=== PATIENT | male | born 1955 | race Caucasian/White ===

== ENCOUNTER → 2016-06-17 | Outpatient (CLI) | payer BC ==
[~2016-06-17] MED LIST: AZIT250T PO; CEPH-571 PO; CYAN1CAP3 PO; ETAN50IN2 INJ; FLV1 PO; FURO-85 PO; GABA-113 PO; HCTZ/LOSARTAN PO; METF500T PO; METH10TA32 PO; MOME220A INH; NYSS5 PO; PRED10TA PO; PRED20TA PO; PRLSR20 PO
[2016-06-17 14:03] LABS: CHOLESTEROL/HDL RATIO 4.1
== END | disposition home or self-care (01) ==
LOC: C.LAB1850 11:57
PROVIDERS: ATTEND Internal Medicine Cardiovascular Disease
DX: I10 Essential (primary) hypertension (principal)

== ENCOUNTER → 2016-07-10 | Outpatient (CLI) | payer BC ==
[~2016-07-10] MED LIST changes: +PERFLUTREN LIPID MICROSPHERE (DEFINITY) IV ONE
[2016-07-10 15:04] LABS: THYROID STIMULATING HORMONE 0.896 uIu/ml (0.300-4.500)
--- NOTE | 2016-07-10 19:00 | ECHOCARDIOGRAM REPORT ---
*NOTICE TO RECEIVING LIBERTARIAN AGENCY This information is strictly Confidential and protected under [place] law. [place] law prohibits you from making any further disclosure of this information unless further disclosure is expressly permitted by the written consent of the person to whom it pertains or is authorized by law. A general authorization for the release of medical or other information is not sufficient for this purpose. Hospital accepts no responsibility if the information is made available to any other person, INCLUDING THE PATIENT. Interpretation Summary * Name: DAVONTE MARTIN Study Date: 07/10/2016 02:18 PM BP: 170/90 mmHg * Patient Location: [facility], [place], [facility] HR: 96 * : 1955 (M/d/yyy) Gender: Male Height: 71 in * Age: 61 yrs Ethnicity: [place] Weight: 322 lb * Ordering Physician: Kwesi Glaser * Referring Physician: Kwesi Glaser * Performed By: Christine Maynard * * Reason For Study: HTN * BSA: 2.6 m2 * -- Conclusions -- * 1. Normal left ventricular size and systolic function. Estimated EF 60-65%. No definite regional wall motion abnormalities. Regional wall motion abnormalities cannot be excluded due to limited visualization. No significant left ventricular hypertrophy. Type 1 diastolic dysfunction. * 2. No significant valvular abnormalities visualized, however valves were not well seen. * 3. Technically difficult study, enhanced with IV Definity. * 4. No prior study available for comparison. Procedure Details * A complete two-dimensional transthoracic echocardiogram was performed (2D, M-mode, Doppler and color flow Doppler). * The study was technically limited. * Limited views were obtained. * The study was technically difficult. * There were technical limitations due to patient's poor positioning and body habitus. * A contrast injection of Definity was performed to improve assessment of LV function. * Contrast was injected into an intravenous site in the right arm. * One vial of Definity ultrasound contrast was diluted in normal saline to a total volume of 10 ml. A total of '3' ml of solution was administered during imaging. * Lot # [id number] of Definity utilized for procedure. * Expiration date 07/12. * The attending nurse who injected the contrast agent was richa carrington RN. Left Ventricle * Normal left ventricular size and systolic function. Estimated EF 60-65%. No definite regional wall motion abnormalities. No significant left ventricular hypertrophy. Type 1 diastolic dysfunction. * Regional wall motion abnormalities cannot be excluded due to limited visualization. Right Ventricle * The right ventricle is not well visualized. * The right ventricle is grossly normal size. * The right ventricular systolic function is normal as assessed by tricuspid annular plane systolic excursion (TAPSE) (normal >1.5 cm). * The right ventricular systolic function is normal. Atria * The left atrial size is normal. * Right atrium not well visualized. * Inter atrial septum not well visualized. Mitral Valve * The mitral valve is not well visualized. * There is no mitral valve stenosis. * Significant mitral regurgitation is absent. Tricuspid Valve * The tricuspid valve is not well visualized. Aortic Valve * The aortic valve is not well visualized. * No hemodynamically significant valvular aortic stenosis. * There is no significant aortic regurgitation. Pulmonic Valve * The pulmonic valve is not well visualized. Great Vessels * Aortic root not well visualized but appears grossly normal in size. Pericardium/Pleural * There is no pericardial effusion. Great Vessels * IVC not well visualized. MMode 2D Measurements and Calculations IVSd 0.89 cm LVIDd 4.3 cm LVPWd 0.79 cm IVS/LVPW 1.1 EDV(Teich) 84.4 ml EDV(cubed) 81.1 ml LV mass(C)d 113.8 grams LV mass(C)dI 44.1 grams/m\S\2 Ao root diam 3.8 cm Ao root area 11.5 cm\S\2 ACS 0.96 cm asc Aorta Diam 3.5 cm LVOT diam 2.0 cm LVOT area 3.0 cm\S\2 LVLd ap2 8.1 cm LVLs ap2 6.3 cm Doppler Measurements and Calculations MV E max sherry 73.5 cm/sec MV A max sherry 94.8 cm/sec MV E/A 0.78 MV dec time 0.24 sec Ao V2 max 110.1 cm/sec Ao max PG 4.9 mmHg Ao max PG (full) 1.1 mmHg LOLITA(V,A) 2.7 cm\S\2 LOLITA(V,D) 2.7 cm\S\2 LV V1 max PG 3.8 mmHg LV V1 max 97.2 cm/sec PA V2 max 81.4 cm/sec PA max PG 2.7 mmHg
== END | disposition home or self-care (01) ==
LOC: C.CPL 13:30
PROVIDERS: ATTEND Internal Medicine Cardiovascular Disease
DX: I10 Essential (primary) hypertension (principal)

== ENCOUNTER → 2016-07-21 | Outpatient (CLI) | payer BC ==
[~2016-07-21] MED LIST changes: -PERFLUTREN LIPID MICROSPHERE (DEFINITY) IV ONE
--- NOTE | 2016-07-21 08:48 | DIAGNOSTIC IMAGING REPORT ---
(BARIUM SWALLOW) ESOPHAGUS CLINICAL HISTORY: E04.2 Multinodular iobcylE76.10 [id number] COMPARISON STUDY: None FLUOROSCOPY TIME: 1.7 minutes. FINDINGS: Mild esophageal irritability. Mild gastroesophageal reflux. Swallowing function is normal. Trace amount of penetration with no evidence for fidel aspiration. IMPRESSION: 1. Trace penetration . 2. No evidence for fidel aspiration. 3. Mild esophageal irritability. 4. Mild gastroesophageal reflux. Electronically signed by: Elmer Whitfield M.D. 07/21/2016 8:47 AM Dictated Date/Time: 07/21/2016 8:42 AM
== END | disposition home or self-care (01) ==
LOC: C.RAD 08:08
PROVIDERS: ATTEND Internal Medicine Endocrinology, Diabetes & Metabolism
DX: E04.2 Nontoxic multinodular goiter (principal); R13.10 Dysphagia, unspecified

== ENCOUNTER 2016-08-28 08:21 | Inpatient (IN) | payer BC ==
[2016-08-28] VITALS (9 sets, daily range): BP systolic 100–144; BP diastolic 68–82; PULSE 79–118; TEMP 36.6–37.1; O2SAT 92–99; Ht 180.3 cm; Wt 142.2 kg
[~2016-08-28] VITALS: Ht 180.3 cm; Wt 142.2 kg
[2016-08-28] MEDS ORDERED: SODIUM CHLORIDE 0.9% 1000ML 1,000 ML IV STA (08:42)
[2016-08-28] MEDS ORDERED: SODIUM CHLORIDE 0.9% 1000ML 1,000 ML IV ONE (08:42)
[2016-08-28 09:09] LABS: COMPLETE YES; HEMATOCRIT 33.9 % (42-52); IG% 0.6 %; LYMPH % 4.2 %; LYMPH ABS # 0.15 K/uL (1.2-3.4); MEAN CELL VOLUME 93.9 fL (80-100); MEAN CORPUSCULAR HEMOGLOBIN 31.6 pg (25-34); MEAN CORPUSCULAR HGB CONC 33.6 g/dl (32-36); MEAN PLATELET VOLUME 10.1 fL (7.4-10.4); MONO % 0.8 %; NEUT % 94.4 %; PLATELET COUNT 227 K/uL (130-400); RED BLOOD COUNT 3.61 M/uL (4.7-6.1); WHITE BLOOD COUNT 3.61 K/uL (4.8-10.8)
[2016-08-28] MEDS ORDERED: METH10TA32 PO ×2 (09:12→09:14)
[2016-08-28] MEDS ORDERED: FURO-85 PO (09:12)
--- NOTE | 2016-08-28 09:13 | DIAGNOSTIC IMAGING REPORT ---
CHEST ONE VIEW PORTABLE CLINICAL HISTORY: CHEST PAIN dyspnea COMPARISON STUDY: 04/25/2016 FINDINGS: Mild stable cardia megaly. Lungs are clear. Diaphragms smooth. Costophrenic angles are sharp. IMPRESSION: Mild stable cardiomegaly. Electronically signed by: Elmer Whitfield M.D. 08/28/2016 9:11 AM Dictated Date/Time: 08/28/2016 9:10 AM
[2016-08-28] MEDS ORDERED: ETAN50IN2 INJ (09:18)
[2016-08-28] MEDS ORDERED: GABA-113 PO (09:18)
[2016-08-28] MEDS ORDERED: PRED20TA PO (09:18)
[2016-08-28] MEDS ORDERED: ALBUT/IPRATROP 3MG/0.5MG NEB 3 ML VIAL INH STA (09:24)
[2016-08-28] MEDS ORDERED: HCTZ/LOSARTAN PO (09:29)
[2016-08-28] MEDS ORDERED: MOME220A INH (09:29)
[2016-08-28] MEDS ORDERED: PRLSR20 PO (09:29)
[2016-08-28 09:30] LABS: ALT/SGPT 87 U/L (12-78); BLOOD UREA NITROGEN 67 mg/dl (7-18); BUN/CREATININE RATIO 28.1 (10-20); CALCIUM 8.7 mg/dl (8.5-10.1); CARBON DIOXIDE 27 mmol/L (21-32); CHLORIDE 103 mmol/L (98-107); GLUCOSE 166 mg/dl (70-99); POTASSIUM 3.8 mmol/L (3.5-5.1); SODIUM 141 mmol/L (136-145)
[2016-08-28 09:33] LABS: ALKALINE PHOSPHATASE 116 U/L (45-117); AST/SGOT 34 U/L (15-37)
[2016-08-28] MEDS ORDERED: ALBUT/IPRATROP 3MG/0.5MG NEB 3 ML VIAL INH PRN (10:30)
[2016-08-28] MEDS ORDERED: ONDANSETRON INJ 2 MG/ML 2 ML VIAL IV PRN (10:30)
[2016-08-28] MEDS ORDERED: PNEUMOCOCCAL POLYSACCHARIDES 25 MCG/0.5 ML VIAL/SYR IM. ONE (10:30)
[2016-08-28] MEDS ORDERED: ACETAMINOPHEN 325 MG TAB PO PRN (10:30)
[2016-08-28] MEDS ORDERED: MoRPHine SULFATE 2 MG/ML CARP IV PRN (10:30)
[2016-08-28] MEDS ORDERED: POLYETHYLENE (MIRALAX) 17 GM PACK PO PRN (10:45)
[2016-08-28] MEDS ORDERED: PIPERACILL/TAZOBAC CONSULT ACTIVE PRN (11:00)
--- NOTE | 2016-08-28 11:16 | HISTORY & PHYSICAL EXAMINATION ---
DATE OF ADMISSION: 08/28/2016 CHIEF COMPLAINT: Shortness of breath. REASON FOR ADMISSION: 1. Acute exacerbation of chronic bronchitis. 2. Acute renal failure. 3. Bright red blood per rectum. 4. Bilateral foot cellulitis. HISTORY OF PRESENT ILLNESS: Mr. Solorzano is a 61-year-old male who suffers from rheumatoid arthritis and is on chronic prednisone therapy. 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 Tejada. He states over the last 4 days he developed progressive shortness of breath; however, this has been accompanied by cough now changing with yellow sputum from his typical white and also some surrounding erythema to large blisters which formed on his feet after walking in ill-fitting shoes over the weekend. The patient states that he was doing fairly well prior to this weekend. He actually went to visit some family in [place] but he was able to ambulate on an outdoor event without much shortness of breath. However, upon returning home, he noticed that he developed blisters from walking around on his feet with progressive erythema and he developed a yellow productive cough with increasing shortness of breath. To this end, the patient took some p.r.n., Lasix, which he had at home and doubled his usual prednisone therapy from 20 to 40. Despite these efforts and local wound care his legs progressively worsened and become erythematous, his breathing progressively worsened and he presented to the Emergency Department where he was found to be hypotensive with lactic acid of 2. He was also tachycardic. He was leukopenic, which likely makes him placed in the SIRS criteria. He was volume resuscitated in the ER. Blood cultures were obtained and he was given a DuoNeb. He is agreeable to admission. PAST MEDICAL HISTORY: COPD, hypertension, rheumatoid arthritis, he had been on Enbrel which was discontinued in March and once his breathing improves, he was going to begin Humira, morbid obesity, shoulder arthroscopy, most recently had echocardiogram in June which shows EF to be 60%, no significant regional wall abnormalities or valvular abnormalities. MEDICATIONS: Lasix 10 mg as needed, Neurontin 300 b.i.d., methotrexate 7 tablets on Mondays which he believes are 2.5 mg tablets, Asmanex Twisthaler 220 one inhalation b.i.d., prednisone 20 mg daily, Prilosec 40 a day and losartan 100/12.5 daily. SOCIAL HISTORY: Quit smoking in 2001. 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 He is accompanied by his . FAMILY HISTORY: Positive for heart disease, hypertension and skin cancer. REVIEW OF SYSTEMS: Ten systems were reviewed and are negative. The bright red blood per rectum has been accompanied with diarrhea. He says he does have some hemorrhoids or polyps and this occasionally happens to him. He has not really noted any melena per se. Otherwise, 10 systems were reviewed and are negative. PHYSICAL EXAMINATION: GENERAL: He is a pleasant gentleman, a little gruff. VITAL SIGNS: Temperature 36.9, pulse 100, respirations 20, BP is low at 78/44 and O2 sats 94. HEAD, EYES, EARS, NOSE, AND THROAT: PERRL, EOMI. Oropharynx is erythematous with some maybe scant areas which suggests thrush. NECK: Without lymphadenopathy, JVD. He states he was recently told he had a goiter. I cannot feel it currently but this is by his history. HEART: Regular. LUNGS: Clear with poor expiratory air movement. He has just recently had a DuoNeb; however. ABDOMEN: Protuberant, normoactive bowel sounds, soft. His groin shows marked intertrigo. EXTREMITIES: His distal extremities have 1+ edema. There are large unroofed blisters on the dorsum of both feet with surrounding erythema to the dorsum of his foot up to the anterior montesinos. He also has multiple skin areas of abrasions and small scabs on his hands, knees, and feet. NEUROLOGICALLY: Awake, alert and appropriate. Cranial nerves II-XII are intact. Equal symmetrical strength and sensation. LABORATORY DATA: White count 3.6, H\T\H 11 and 33, platelet count 227, BUN and creatinine 67/2.4, lactic acid 2.3, glucose elevated at 166. I personally reviewed his chest x-ray which shows changes of COPD, but no pneumonia, I personally reviewed EKGs which shows normal sinus rhythm. ASSESSMENT: A 61-year-old male here with likely SIRS related to acute bronchitis, lower extremity cellulitis with large unroofed blisters and rectal bleeding. PLAN: For the cellulitis and bronchitis we will employ Zosyn therapy. The patient does not have a lot of health care exposure, although he is immunosuppressed. MRSA coverage is not added at this point in time unless he progressively worsens then we will add vancomycin. We will do a nasal MRSA swab and if it is positive, we may consider broadening our MRSA coverage. Regarding his SIRS he will volume resuscitated in the ER and will receive an additional 2 liters for the first 24 hours. Regarding his acute exacerbation of chronic bronchitis, he will be given Solu-Medrol, albuterol nebulizers and continue his Asmanex. Dr. Tejada is his usual post acute care registered nurse and may be employed for a consult if need be. Regarding his bright red blood per rectum this sounds hemorrhoid. We will increase his proton pump inhibitor to IV and b.i.d. Noticing his glucoses being elevated on admission and his morbid obesity places him at risk for type 2 diabetes, a hemoglobin A1c has added to tomorrow's morning labs. DVT prevention tentatively is with heparin which can be stopped emergently if we need to be. We will repeat hemoglobin and lactic acid at 1500 hours to make sure the hemoglobin is not worsening and the lactic acid is improving.
[2016-08-28] MEDS: SODIUM CHLORIDE 0.9% 1000ML 1,000 ML IV SCH ×2 (13:11→20:26)
[2016-08-28] MEDS: NYSTATIN SUSP 500,000 U/5 ML UDC PO SCH ×3 (13:11→20:27)
[2016-08-28] MEDS: PANTOprazole INJ 40 MG in SYRINGE 0 ML IV SCH ×2 (13:11→20:27)
[2016-08-28] MEDS: METHYLPREDNISOLONE IV 40 MG in SYRINGE 0 ML IV SCH (13:11)
[2016-08-28 13:20] LABS: PARTIAL THROMBOPLASTIN RATIO 0.8; PROTHROMBIN TIME (PATIENT) 10.8 SECONDS (9.0-12.0)
[2016-08-28] MEDS ORDERED: PIPERACILL/TAZOBAC IV 4.5 GM in DEXTROSE 5% 100ML IV ONE (13:30)
--- NOTE | 2016-08-28 15:57 | EMERGENCY ROOM VISIT NOTE ---
History Report prepared by Marry: Melinda eY Under the Supervision of: Dr. Trace Garcia M.D. First contact with patient: 08:35 Chief Complaint: SHORTNESS OF BREATH Stated Complaint: SOB,BLISTERS/CANT WALK,BLOODY STOOLS History of Present Illness The patient is a 61 year old male who presents to the Emergency Room with complaints of persistent shortness of breath starting 4 days ago. He has been in the ED for SOB previously and he is following with a manager interface. He reports that last weekend he was doing well and was walking long distances. He reports that his shoes were ill fitting. His reports that he was eating unhealthily all weekend. When he returned home he found that he had blisters all over his feet and he was short of breath. Also for the last 3-4 days he has had bright red stool. Starting last night at 0300 he stopped having bloody stools, but started to experience diarrhea. He had 5 bowel movements last night. He denies any dizziness, lightheadedness, abdominal pain, rectal pain or chest pain. He has been on antibiotics and prednisone recently. He has recently had an echo which was normal. Source of History: patient, spouse/significant other Onset: 4 days ago Position: other (global) Quality: other (SOB) Timing: other (persistent) Associated Symptoms: + SOB, + diarrhea, + hematochezia, No abdominal pain, No chest pain Note: Pt reports blisters on feet. Pt denies rectal pain, dizziness, lightheadedness. Review of Systems See HPI for pertinent positives & negatives. A total of 10 systems reviewed and were otherwise negative. Past Medical & Surgical Medical Problems: (1) Acute exacerbation of chronic bronchitis (2) Atrial fibrillation (3) Reactive airway disease (4) SIRS (systemic inflammatory response syndrome) Old medical records were reviewed. Nurse's notes were reviewed and I agree with. Family History FH: heart disease FHx: cancer Hypertension Social History Smoking Status: Former Smoker Alcohol Use: none Marital Status: Housing Status: lives with family Occupation Status: employed Current/Historical Medications Scheduled Etanercept (Enbrel), 1 DOSE INJ Mo Furosemide (Lasix), 10 MG PO UD Gabapentin (Neurontin), 300 MG PO BID Methotrexate (Trexall), 10 MG PO WK Mometasone Furoate (Inhalation (Asmanex Twisthaler 120 Me), 1 INHA INH BID Omeprazole (Prilosec), 20 MG PO DAILY Prednisone (Prednisone), 1 TAB PO DAILY [Hctz/Losartan], 1 TAB PO DAILY Allergies Coded Allergies: No Known Allergies (Verified , 08/28/16) Physical Exam Vital Signs Date Time Temp Pulse Resp B/P Pulse Ox O2 Delivery O2 Flow Rate FiO2 08/28/16 10:00 100 20 102/61 98 Room Air 08/28/16 10:00 95 Room Air 08/28/16 09:05 110 08/28/16 09:01 94 Room Air 08/28/16 08:57 94 08/28/16 08:56 105 21 73/47 93 Room Air 08/28/16 08:28 36.9 98 20 78/44 95 Room Air Physical Exam General: Chronically ill-appearing middle aged male. Well developed well nourished in no acute distress, breathing comfortably on room air. Normal speech HEENT: Normal cephalic atraumatic. Pupils are equal round and reactive to light. Extraocular movements are intact. Oropharynx is pink with moist mucous membranes. No swelling of the mouth lips or tongue. Neck: Supple with a midline trachea. No meningeal signs or stiffness, no JVD or bruits. No Stridor. Chest: Clear to auscultation bilaterally. No wheezes or rhonchi. No increased work of breathing. Heart: regular rate and rhythm. Abdomen: Soft nontender, nondistended without rebound guarding or rigidity. Extremities: No cyanosis or clubbing. No calf tenderness or assymetry. 1+ lower extremity edema, blistering and sloughing of skin on feet bilaterally. Spine/Back. Non tender to palpation. No CVA tenderness Skin: Good turgor without rashes. Neurologic exam: Cranial nerves two through 12 are intact. Motor and sensation are intact and symmetrical throughout. Medical Decision & Procedures ER Provider Diagnostic Interpretation: X-ray results as stated below per interpretation by me and the radiologist: CHEST ONE VIEW PORTABLE CLINICAL HISTORY: CHEST PAIN dyspnea COMPARISON STUDY: 04/25/2016 FINDINGS: Mild stable cardia megaly. Lungs are clear. Diaphragms smooth. Costophrenic angles are sharp. IMPRESSION: Mild stable cardiomegaly. Electronically signed by: Elmer Whitfield M.D. 08/28/2016 9:11 AM Dictated Date/Time: 08/28/2016 9:10 AM Laboratory Results 08/28/16 08:51 Red Blood Count 3.61, Mean Corpuscular Volume 93.9, Mean Corpuscular Hemoglobin 31.6, Mean Corpuscular Hemoglobin Concent 33.6, Mean Platelet Volume 10.1, Neutrophils (%) (Auto) 94.4, Lymphocytes (%) (Auto) 4.2, Monocytes (%) (Auto) 0.8, Eosinophils (%) (Auto) 0.0, Basophils (%) (Auto) 0.0, Neutrophils # (Auto) 3.41, Lymphocytes # (Auto) 0.15, Monocytes # (Auto) 0.03, Eosinophils # (Auto) 0.00, Basophils # (Auto) 0.00 08/28/16 08:51 Test 08/28/16 08:51 08/28/16 09:37 White Blood Count 3.61 K/uL (4.8-10.8) Red Blood Count 3.61 M/uL (4.7-6.1) Hemoglobin 11.4 g/dL (14.0-18.0) Hematocrit 33.9 % (42-52) Mean Corpuscular Volume 93.9 fL (80-100) Mean Corpuscular Hemoglobin 31.6 pg (25-34) Mean Corpuscular Hemoglobin Concent 33.6 g/dl (32-36) Platelet Count 227 K/uL (130-400) Mean Platelet Volume 10.1 fL (7.4-10.4) Neutrophils (%) (Auto) 94.4 % Lymphocytes (%) (Auto) 4.2 % Monocytes (%) (Auto) 0.8 % Eosinophils (%) (Auto) 0.0 % Basophils (%) (Auto) 0.0 % Neutrophils # (Auto) 3.41 K/uL (1.4-6.5) Lymphocytes # (Auto) 0.15 K/uL (1.2-3.4) Monocytes # (Auto) 0.03 K/uL (0.11-0.59) Eosinophils # (Auto) 0.00 K/uL (0-0.5) Basophils # (Auto) 0.00 K/uL (0-0.2) RDW Standard Deviation 48.7 fL (36.4-46.3) RDW Coefficient of Variation 14.4 % (11.5-14.5) Immature Granulocyte % (Auto) 0.6 % Immature Granulocyte # (Auto) 0.02 K/uL (0.00-0.02) Prothrombin Time 10.8 SECONDS (9.0-12.0) Prothromb Time International Ratio 1.0 (0.9-1.1) Activated Partial Thromboplast Time 20.5 SECONDS (21.0-31.0) Partial Thromboplastin Ratio 0.8 Anion Gap 11.0 mmol/L (3-11) Estimated GFR () 32.1 Estimated GFR (Non- 27.7 BUN/Creatinine Ratio 28.1 (10-20) Calcium Level 8.7 mg/dl (8.5-10.1) Total Bilirubin 0.8 mg/dl (0.2-1) Direct Bilirubin 0.2 mg/dl (0-0.2) Aspartate Amino Transf (AST/SGOT) 34 U/L (15-37) Alanine Aminotransferase (ALT/SGPT) 87 U/L (12-78) Alkaline Phosphatase 116 U/L (45-117) Troponin I 1.040 ng/ml (0-0.045) Pro-B-Type Natriuretic Peptide 653 pg/ml (0-900) Total Protein 6.4 gm/dl (6.4-8.2) Albumin 3.1 gm/dl (3.4-5.0) Lipase 143 U/L (73-393) Bedside Lactic Acid Venous 2.32 mmol/L (0.90-1.70) Date/Time Source Procedure Growth Status 08/28/16 00:00 Nasal MRSA DNA Surveillance Screen - Final Specimen Negative for MRSA by DNA Probe Complete Laboratory studies as stated above per my review. Medications Administered Medications (Trade) Dose Ordered Sig/Janessa Route Start Time Stop Time Status Last Admin Dose Admin Sodium Chloride (Nss 1000ml) 1,000 ml @ 999 mls/hr Q1H1M STAT IV 08/28/16 08:42 08/28/16 09:42 DC 08/28/16 09:49 999 MLS/HR Albuterol/ Ipratropium 3 ml 3 ml NOW STAT INH 08/28/16 09:24 08/28/16 09:25 DC 08/28/16 09:49 3 ML Sodium Chloride (Nss 1000ml) 1,000 ml @ 100 mls/hr Q10H IV 08/28/16 10:30 08/29/16 06:29 08/28/16 13:11 100 MLS/HR ECG Indication: SOB/dyspnea Rate (beats per minute): 109 Rhythm: sinus bradycardia Findings: no acute ischemic change, no ectopy Comparison ECG Date: Change: no significant change ED Course 0835: Past medical records reviewed. The patient was evaluated in room A10, and a complete history and physical examination were performed. 0842: NSS 1000 ml @ 150 mls/hr IV, NSS 1000 ml @ 999 mls/hr IV. 0924: Duoneb 3 ml INH. 0947: Upon reevaluation, the patient is resting comfortably. I discussed the results and treatment plan with the patient. He verbalized agreement of the treatment plan. The patient will be evaluated for further management. 0949: I discussed the patient's case with Dr. Kaiser, [facility] [place] - internal medicine. The patient will be evaluated for further management. 1032: I reevaluated the patient. He feels much better. He has been seen by Dr. Kaiser. Medical Decision Differential diagnoses: reactive airway disease, infection, pneumonia, cellulitis, sepsis, anemia. This patient comes in as described above. He has several complaints. He was noted to be hypotensive in triage with a blood pressure in the 70 systolic. I went and saw her immediately on recheck it was in 90s. He does have some blistering and skin sloughing of his feet which I think is most likely mechanical from walking around. He also also tells me has not been drinking much. He denies any chest pain. He has had some shortness of breath but gets better with his inhalers. He does not appear to be respiratory distress acutely. IV access established EKG and chest x-ray were obtained as well as multiple blood testing. Chest x-ray was clear and does not suggest heart failure, pneumonia, or pneumothorax. EKG does not suggest acute coronary syndrome or arrhythmia. His troponin however was elevated at greater than 1. His BUN and creatinine were also significantly elevated at 67 and 2.4. I think this is most likely prerenal. He is also anemic and some this could be related to GI bleed. He's been typed and screened. He was treated with IV fluid bolus and his pressure cameup. Blood cultures have been obtained as well at this point he has known sinus suggest infection or sepsis of the that would still be in the differential. Dr. Acuna was consulted and saw the ER will admit him for further inpatient treatment and evaluation. Consults Time Called: [phone] Consulting Physician: Dr. Kaiser, [facility] [place] - internal medicine Returned Call: [phone] I discussed the patient's case with him. The patient will be evaluated for further management. Impression Primary Impression: Hypotension Additional Impressions: SOB (shortness of breath) Dehydration GI bleed Lower extremity edema Critical Care Because of the patient's hypotension and need for frequent reassessment and significant evaluation and other medical issues, I have personally spent greater than 30 minutes of critical care time in the direct management of this patient. This includes bedside care, interpretation of diagnostic studies, and testing, discussion with consultants, patient, and family members, and other required patient management activities. This 30 minutes is in excess of all separately billable procedures. Scribe Attestation The scribe's documentation has been prepared under my direction and personally reviewed by me in its entirety. I confirm that the note above accurately reflects all work, treatment, procedures, and medical decision making performed by me. Departure Information Dispostion Being Evaluated By Hospitalist Referrals No Doctor, Assigned (PCP) Patient Instructions My [facility] Problem Qualifiers
[2016-08-28] MEDS: ALBUT/IPRATROP 3MG/0.5MG NEB 3 ML VIAL INH SCH ×2 (16:22→19:22)
[2016-08-28 16:39] LABS: HEMATOCRIT 30.9 % (42-52)
[2016-08-28] MEDS: HEPARIN SOD 5000 UNIT/0.5 ML CARP SQ SCH (17:26)
[2016-08-28] MEDS: PIPERACILL/TAZOBAC IV 4.5 GM in DEXTROSE 5% 100ML 100 ML IV SCH (20:26)
[2016-08-28] MEDS: NYSTATIN POWDER 15GM BTL EXT SCH (20:26)
[2016-08-28] MEDS: GABAPENTIN 300 MG CAP PO SCH (20:27)
[2016-08-28] MEDS: MOMETASONE FUROATE 14 PUFF/1 INHALER INH SCH (20:28)
[2016-08-29] VITALS (10 sets, daily range): BP systolic 102–126; BP diastolic 64–84; PULSE 63–114; TEMP 36.6–36.9; O2SAT 69–98
[2016-08-29] MEDS: METHYLPREDNISOLONE IV 40 MG in SYRINGE 0 ML IV SCH ×2 (01:19→12:33)
[2016-08-29] MEDS: PIPERACILL/TAZOBAC IV 4.5 GM in DEXTROSE 5% 100ML 100 ML IV SCH ×3 (03:48→20:13)
[2016-08-29] MEDS: HEPARIN SOD 5000 UNIT/0.5 ML CARP SQ SCH ×2 (06:15→17:28)
[2016-08-29 07:11] LABS: HEMATOCRIT 29.4 % (42-52); MEAN CELL VOLUME 94.5 fL (80-100); MEAN CORPUSCULAR HEMOGLOBIN 30.5 pg (25-34); MEAN CORPUSCULAR HGB CONC 32.3 g/dl (32-36); MEAN PLATELET VOLUME 9.4 fL (7.4-10.4); PLATELET COUNT 143 K/uL (130-400); RED BLOOD COUNT 3.11 M/uL (4.7-6.1); WHITE BLOOD COUNT 2.68 K/uL (4.8-10.8)
[2016-08-29 07:47] LABS: BUN/CREATININE RATIO 27.8 (10-20); CALCIUM 8.5 mg/dl (8.5-10.1); CREATININE 1.9 mg/dl (0.60-1.40); POTASSIUM 4.7 mmol/L (3.5-5.1)
[2016-08-29] MEDS: ALBUT/IPRATROP 3MG/0.5MG NEB 3 ML VIAL INH SCH ×4 (07:58→19:16)
--- NOTE | 2016-08-29 08:00 | Hospitalist Progress Note ---
Hospitalist Progress Note Date of Service Aug 29, 2016. Subjective Pt evaluation today including: conversation w/ patient, physical exam, chart review Improved SOB. No CP. Eyes: No diplopia, No discharge, No eye pain, No problem reported, No redness, No see HPI, No worsening of vision ENT: No dental problems, No hearing loss, No nasal symptoms, No problem reported, No see HPI, No sore throat, No tinnitus, No trouble swallowing, No unusual epistaxis Respiratory: + cough, + dyspnea on exertion Cardiovascular: + edema Abdomen: No GI bleeding, No constipation, No diarrhea, No nausea, No pain, No problem reported, No see HPI, No vomiting Musculoskeletal: No calf pain, No joint pain, No muscle pain, No problem reported, No see HPI, No swelling Medications Medications (Trade) Dose Ordered Sig/Janessa Route Start Time Stop Time Status Last Admin Dose Admin Sodium Chloride (Nss 1000ml) 1,000 ml @ 999 mls/hr Q1H1M STAT IV 08/28/16 08:42 08/28/16 09:42 DC 08/28/16 09:49 999 MLS/HR Albuterol/ Ipratropium (Duoneb) 3 ml NOW STAT INH 08/28/16 09:24 08/28/16 09:25 DC 08/28/16 09:49 3 ML Gabapentin (Neurontin Cap) 300 mg BID PO 08/28/16 21:00 09/27/16 20:59 08/28/16 20:27 300 MG Mometasone Furoate (Asmanex 220MCG Inh) 1 puff BID INH 08/28/16 21:00 09/27/16 20:59 08/28/16 20:28 1 PUFF Heparin Sodium (Porcine) 5000 unit 5,000 unit Q12@0600,1800 SQ 08/28/16 18:00 09/27/16 17:59 08/29/16 06:15 5,000 UNIT Piperacillin Sod/ Tazobactam Sod 4.5 gm/Dextrose 120 ml @ 28.75 mls/ hr Q8@0400,1200,2000 IV 08/28/16 20:00 09/07/16 13:59 08/29/16 03:48 28.75 MLS/HR Methylprednisolone Sodium Succinate/ Syringe (Solu-Medrol IV/ Syringe) 0.64 ml @ 1.5 mls/min Q12H IV 08/28/16 13:00 09/27/16 10:29 08/29/16 01:19 1.5 MLS/MIN Nystatin 1 appln 1 appln BID EXT 08/28/16 21:00 09/27/16 20:59 08/28/16 20:26 1 APPLN Pantoprazole Sodium/Syringe (Protonix Inj/ Syringe) 10 ml @ 5 mls/min DAILY@ IV 08/28/16 13:00 09/27/16 10:29 08/28/16 20:27 5 MLS/MIN Albuterol/ Ipratropium 3 ml 3 ml QIDR INH 08/28/16 12:00 09/27/16 11:59 08/28/16 19:22 3 ML Sodium Chloride (Nss 1000ml) 1,000 ml @ 100 mls/hr Q10H IV 08/28/16 10:30 08/29/16 06:29 DC 08/28/16 20:26 100 MLS/HR Nystatin 5 ml 5 ml QID PO 08/28/16 13:00 09/07/16 12:59 08/28/16 20:27 5 ML Piperacillin Sod/ Tazobactam Sod/ Dextrose (Zosyn Iv/D5 100ml) 120 ml @ 200 mls/hr NOW ONCE IV 08/28/16 13:30 08/28/16 14:05 DC 08/28/16 14:15 200 MLS/HR Objective Vital Signs Date Time Temp Pulse Resp B/P Pulse Ox O2 Delivery O2 Flow Rate FiO2 08/29/16 07:23 36.9 97 24 126/84 91 Room Air 08/29/16 04:00 Mask 5.0 08/29/16 03:43 36.8 100 20 115/79 95 Mask 5.0 08/29/16 00:00 Mask 5.0 08/28/16 23:59 37.1 118 20 100/68 99 Mask 5.0 08/28/16 20:01 99 Mask 5.0 08/28/16 19:28 37.1 101 22 108/69 99 Nasal Cannula 5.0 08/28/16 19:22 105 16 96 Diffusion Mask 5.0 08/28/16 16:22 90 16 97 Diffusion Mask 3.0 08/28/16 16:00 97 Mask 5.0 08/28/16 15:29 36.9 100 22 122/76 97 Nasal Cannula 3.0 08/28/16 12:45 36.6 79 79 144/82 94 Mask 08/28/16 12:01 102 20 118/70 92 08/28/16 11:00 103 20 127/71 95 Room Air 08/28/16 10:00 100 20 102/61 98 Room Air 08/28/16 10:00 95 Room Air 08/28/16 09:05 110 08/28/16 09:01 94 Room Air 08/28/16 08:57 94 08/28/16 08:56 105 21 73/47 93 Room Air 08/28/16 08:28 36.9 98 20 78/44 95 Room Air Physical Exam General Appearance: WD/WN Eyes: normal inspection ENT: normal ENT inspection Neck: supple, no adenopathy, no JVD Respiratory/Chest: chest non-tender, + decreased breath sounds Cardiovascular: regular rate, rhythm, no JVD, no murmur Abdomen: normal bowel sounds, non tender, soft Extremities: normal range of motion 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, alert, oriented x 3 ( ) Laboratory Results Last 24 Hours Test 08/28/16 08:51 08/28/16 09:37 08/28/16 16:32 08/29/16 06:39 White Blood Count 3.61 K/uL 2.68 K/uL Red Blood Count 3.61 M/uL 3.11 M/uL Hemoglobin 11.4 g/dL 10.5 g/dL 9.5 g/dL Hematocrit 33.9 % 30.9 % 29.4 % Mean Corpuscular Volume 93.9 fL 94.5 fL Mean Corpuscular Hemoglobin 31.6 pg 30.5 pg Mean Corpuscular Hemoglobin Concent 33.6 g/dl 32.3 g/dl Platelet Count 227 K/uL 143 K/uL Mean Platelet Volume 10.1 fL 9.4 fL Neutrophils (%) (Auto) 94.4 % Lymphocytes (%) (Auto) 4.2 % Monocytes (%) (Auto) 0.8 % Eosinophils (%) (Auto) 0.0 % Basophils (%) (Auto) 0.0 % Neutrophils # (Auto) 3.41 K/uL Lymphocytes # (Auto) 0.15 K/uL Monocytes # (Auto) 0.03 K/uL Eosinophils # (Auto) 0.00 K/uL Basophils # (Auto) 0.00 K/uL RDW Standard Deviation 48.7 fL 49.3 fL RDW Coefficient of Variation 14.4 % 14.4 % Immature Granulocyte % (Auto) 0.6 % Immature Granulocyte # (Auto) 0.02 K/uL Prothrombin Time 10.8 SECONDS Prothromb Time International Ratio 1.0 Activated Partial Thromboplast Time 20.5 SECONDS Partial Thromboplastin Ratio 0.8 Sodium Level 141 mmol/L 142 mmol/L Potassium Level 3.8 mmol/L 4.7 mmol/L Chloride Level 103 mmol/L 107 mmol/L Carbon Dioxide Level 27 mmol/L 28 mmol/L Anion Gap 11.0 mmol/L 7.0 mmol/L Blood Urea Nitrogen 67 mg/dl 53 mg/dl Creatinine 2.40 mg/dl 1.90 mg/dl Estimated GFR () 32.1 42.5 Estimated GFR (Non- 27.7 36.7 BUN/Creatinine Ratio 28.1 27.8 Random Glucose 166 mg/dl 215 mg/dl Calcium Level 8.7 mg/dl 8.5 mg/dl Total Bilirubin 0.8 mg/dl Direct Bilirubin 0.2 mg/dl Aspartate Amino Transf (AST/SGOT) 34 U/L Alanine Aminotransferase (ALT/SGPT) 87 U/L Alkaline Phosphatase 116 U/L Troponin I 1.040 ng/ml 0.327 ng/ml Pro-B-Type Natriuretic Peptide 653 pg/ml Total Protein 6.4 gm/dl Albumin 3.1 gm/dl Lipase 143 U/L Bedside Lactic Acid Venous 2.32 mmol/L Lactic Acid Level 1.3 mmol/L Est Creatinine Clear Calc Drug Dose 58.1 ml/min Assessment and Plan Acute bronchitis Continue with IV abx, steroids, oxygen, nebs Follow up on sputum and blood cultures. Consult GI Bleed/Hx of hemorrhoids Drop in Hemoglobin Consult GI Type and screen Leg ulcers Local woundl care Wound care consult IV abx Follow up on wound cultures.
[2016-08-29] MEDS: NYSTATIN POWDER 15GM BTL EXT SCH ×2 (08:12→20:15)
[2016-08-29] MEDS: MOMETASONE FUROATE 14 PUFF/1 INHALER INH SCH ×2 (08:12→20:14)
[2016-08-29] MEDS: GABAPENTIN 300 MG CAP PO SCH ×2 (08:13→20:14)
[2016-08-29] MEDS: NYSTATIN SUSP 500,000 U/5 ML UDC PO SCH ×4 (08:13→20:14)
[2016-08-29] MEDS: PANTOprazole INJ 40 MG in SYRINGE 0 ML IV SCH ×2 (08:13→20:13)
[2016-08-29 08:14] LABS: ESTIMATED AVERAGE GLUCOSE 169 mg/dl; HA1C FLAG Normal (Normal)
[2016-08-29] MEDS ORDERED: NON-FORMULARY MEDICATION (Omeprazole (Prilosec) 20 MG) PO SCH (09:00)
[2016-08-29] MEDS: OXYCODONE HCL IR 5 MG TAB (IMMEDIATE RELEASE) PO PRN (20:26)
[2016-08-30] VITALS (8 sets, daily range): BP systolic 127–146; BP diastolic 83–96; PULSE 89–105; TEMP 36.8–37.1; O2SAT 86–94
[2016-08-30] MEDS: METHYLPREDNISOLONE IV 40 MG in SYRINGE 0 ML IV SCH ×2 (01:52→13:02)
[2016-08-30] MEDS: PIPERACILL/TAZOBAC IV 4.5 GM in DEXTROSE 5% 100ML 100 ML IV SCH ×3 (04:49→20:40)
[2016-08-30] MEDS: HEPARIN SOD 5000 UNIT/0.5 ML CARP SQ SCH (06:30)
[2016-08-30 07:12] LABS: HEMATOCRIT 28.1 % (42-52); MEAN CELL VOLUME 94.3 fL (80-100); MEAN CORPUSCULAR HEMOGLOBIN 30.9 pg (25-34); MEAN CORPUSCULAR HGB CONC 32.7 g/dl (32-36); MEAN PLATELET VOLUME 9.5 fL (7.4-10.4); PLATELET COUNT 103 K/uL (130-400); RED BLOOD COUNT 2.98 M/uL (4.7-6.1); WHITE BLOOD COUNT 2.39 K/uL (4.8-10.8)
[2016-08-30] MEDS: ALBUT/IPRATROP 3MG/0.5MG NEB 3 ML VIAL INH SCH ×4 (07:17→19:10)
[2016-08-30 07:49] LABS: BUN/CREATININE RATIO 27.3 (10-20); CALCIUM 8.8 mg/dl (8.5-10.1); CREATININE 1.6 mg/dl (0.60-1.40); POTASSIUM 4.3 mmol/L (3.5-5.1)
[2016-08-30 07:55] LABS: COMPLETE YES; EOS % 0.4 %; HYPERSEGMENTED POLYS 1+; IG% 1.3 %; LYMPH % 7.1 %; LYMPH ABS # 0.17 K/uL (1.2-3.4); MONO % 1.3 %; NEUT % 89.9 %
[2016-08-30] MEDS: NYSTATIN POWDER 15GM BTL EXT SCH ×2 (08:24→20:41)
[2016-08-30] MEDS: GABAPENTIN 300 MG CAP PO SCH ×2 (08:25→20:41)
[2016-08-30] MEDS: NYSTATIN SUSP 500,000 U/5 ML UDC PO SCH ×4 (08:25→20:41)
[2016-08-30] MEDS: MOMETASONE FUROATE 14 PUFF/1 INHALER INH SCH ×2 (08:27→20:41)
[2016-08-30] MEDS: PANTOprazole INJ 40 MG in SYRINGE 0 ML IV SCH ×2 (08:27→20:41)
[2016-08-30] MEDS: OXYCODONE HCL IR 5 MG TAB (IMMEDIATE RELEASE) PO PRN ×2 (10:38→20:40)
[2016-08-30] MEDS: MoRPHine SULFATE 4 MG/ML 1 ML CARP\\VIAL IV PRN (13:05)
--- NOTE | 2016-08-30 15:06 | Progress Note ---
Subjective Date of Service: Aug 30, 2016. Subjective Pt evaluation today including: conversation w/ patient, physical exam, chart review, lab review, review of studies, review of inpatient medication list Pain: does not report any pain symptoms. Voiding: no voiding problems, no incontinence Patient is seen and examined by me. Patient denies chest pain, shortness of breath, dizziness, palpitation or loss of consciousness. Patient denies abdominal pain and urinary symptoms. Patient denies fever, chills, rigors and sweats. Patient is complaining of bilateral foot pain. Patient is sitting comfortably. Patient is noncompliance to oxygen. Patient denies any bloody bowel movement and a tarry dark stool. Patient has a good appetite and denies any difficulty with sleep. Problem List Medical Problems: (1) Dehydration Status: Acute (2) GI bleed Status: Acute (3) Hypotension Status: Acute (4) Lower extremity edema Status: Acute (5) SOB (shortness of breath) Status: Acute Review of Systems Gen. appearance: not in acute distress, awake alert oriented 3. Cardiovascular: S1, S2, regular rate and rhythm Resp: Coarse breath sounds bilaterally at the lung bases. Abdomen: Obese, nontender, nondistended, bowel sound present. Extremities: bilateral feet and dressing secondary to wounds bilateral lower extremity 1+ edema, Neuro: no focal neurological deficits present, no motor weakness All Other Systems: Reviewed and Negative Objective Vital Signs Date Time Temp Pulse Resp B/P Pulse Ox O2 Delivery O2 Flow Rate FiO2 08/30/16 12:00 Nasal Cannula 2.0 08/30/16 11:00 36.8 102 18 132/85 94 1.5 08/30/16 08:00 Nasal Cannula 2.0 08/30/16 07:17 105 16 86 Room Air 08/30/16 06:55 36.9 105 18 146/83 87 Room Air 08/30/16 04:00 Room Air 08/29/16 23:59 Room Air 08/29/16 23:20 36.6 106 19 121/75 91 Room Air 08/29/16 20:00 Room Air 08/29/16 19:38 36.7 114 22 102/64 91 Room Air 08/29/16 19:16 105 16 96 Nasal Cannula 0.5 08/29/16 17:55 36.7 108 22 120/76 94 Nasal Cannula 1.0 08/29/16 16:00 Nasal Cannula 3.0 08/29/16 15:20 97 16 69 Nasal Cannula 2.0 Laboratory Results Last 24 Hours Test 08/30/16 06:51 White Blood Count 2.39 K/uL Red Blood Count 2.98 M/uL Hemoglobin 9.2 g/dL Hematocrit 28.1 % Mean Corpuscular Volume 94.3 fL Mean Corpuscular Hemoglobin 30.9 pg Mean Corpuscular Hemoglobin Concent 32.7 g/dl Platelet Count 103 K/uL Mean Platelet Volume 9.5 fL Neutrophils (%) (Auto) 89.9 % Lymphocytes (%) (Auto) 7.1 % Monocytes (%) (Auto) 1.3 % Eosinophils (%) (Auto) 0.4 % Basophils (%) (Auto) 0.0 % Neutrophils # (Auto) 2.15 K/uL Lymphocytes # (Auto) 0.17 K/uL Monocytes # (Auto) 0.03 K/uL Eosinophils # (Auto) 0.01 K/uL Basophils # (Auto) 0.00 K/uL RDW Standard Deviation 49.0 fL RDW Coefficient of Variation 14.5 % Immature Granulocyte % (Auto) 1.3 % Immature Granulocyte # (Auto) 0.03 K/uL Hypersegmented Polys 1+ Sodium Level 141 mmol/L Potassium Level 4.3 mmol/L Chloride Level 106 mmol/L Carbon Dioxide Level 29 mmol/L Anion Gap 6.0 mmol/L Blood Urea Nitrogen 44 mg/dl Creatinine 1.60 mg/dl Est Creatinine Clear Calc Drug Dose 68.8 ml/min Estimated GFR () 52.4 Estimated GFR (Non- 45.2 BUN/Creatinine Ratio 27.3 Random Glucose 160 mg/dl Calcium Level 8.8 mg/dl Assessment and Plan Acute bronchitis with SIRS. Continue with IV Levaquin, steroids, oxygen, nebs. Leukopenia with a white count of 2.39 Follow up on sputum and blood cultures. normal lactic acid, however on Poc lactic acid was elevated. Consult pending. GI Bleed/Hx of hemorrhoids Drop in Hemoglobin from 9.5 to 9.2 which is about a 2 g drop since admission from 11.4. Continue IV Protonix 40 mg twice a day. Stop subcutaneous heparin for DVT prophylaxis and we will substitute to SCDs Pending GI consult, we will continue to monitor H&H on daily basis. Type and screen Acute on chronic kidney injury Patient creatinine of 1.6 trended downward from 1.9. Will resume IV fluids NS 75ml/hr for now, gentle hydration. Patient has a history of stage III chronic kidney disease. Avoid nephrotoxic agents such as NSAIDs. We will repeat BMP in a.m. Thrombocytopenia Acute drop in platelets from 227 to 103. Patient 4 T score of 3. We'll stop subcutaneous heparin. We will order a HIT antibody testing. SCDs for now. Leg ulcers Local woundl care Wound care consult Follow up on wound cultures. Continued [facility] stay due to: multiple IV medications needed Discharge planning: home
--- NOTE | 2016-08-30 16:29 | Gastroenterology Progress Note ---
Progress Note Date of Service: Aug 30, 2016 Subjective Pt evaluation today including: conversation w/ patient, conversation w/ family (), physical exam, chart review (No data in [facility] EMR. previus GI consults of procedures in [facility]), lab review, review of studies, conversation w/ healthcare market consultant, review of inpatient medication list Medications Current Inpatient Medications Medications (Trade) Dose Ordered Sig/Janessa Route Start Time Stop Time Status Last Admin Dose Admin Gabapentin (Neurontin Cap) 300 mg BID PO 08/28/16 21:00 09/27/16 20:59 08/30/16 08:25 300 MG Mometasone Furoate (Asmanex 220MCG Inh) 1 puff BID INH 08/28/16 21:00 09/27/16 20:59 08/29/16 08:12 1 PUFF Acetaminophen (Tylenol Tab) 650 mg Q4H PRN PO 08/28/16 10:30 09/27/16 10:29 Polyethylene (Miralax Powder Packet) 17 gm DAILY PRN PO 08/28/16 10:45 09/27/16 10:44 Ondansetron HCl 4 mg 4 mg Q6H PRN IV 08/28/16 10:30 09/27/16 10:29 Piperacillin Sod/ Tazobactam Sod 4.5 gm/Dextrose 120 ml @ 28.75 mls/ hr Q8@0400,1200,2000 IV 08/28/16 20:00 09/07/16 13:59 08/30/16 11:58 28.75 MLS/HR Methylprednisolone Sodium Succinate/ Syringe (Solu-Medrol IV/ Syringe) 0.64 ml @ 1.5 mls/min Q12H IV 08/28/16 13:00 09/27/16 10:29 08/30/16 13:02 1.5 MLS/MIN Nystatin 1 appln 1 appln BID EXT 08/28/16 21:00 09/27/16 20:59 08/29/16 08:12 1 APPLN Pantoprazole Sodium/Syringe (Protonix Inj/ Syringe) 10 ml @ 5 mls/min DAILY@09,21 IV 08/28/16 13:00 09/27/16 10:29 08/30/16 08:27 5 MLS/MIN Morphine Sulfate (MoRPHine SULFATE INJ) 2 mg Q4H PRN IV 08/28/16 10:30 09/11/16 10:29 08/30/16 11:59 2 MG Morphine Sulfate (MoRPHine SULFATE INJ) 4 mg Q4H PRN IV 08/28/16 10:30 09/11/16 10:29 08/30/16 13:05 4 MG Oxycodone HCl (Roxicodone Immediate Rel Tab) 10 mg Q6 PRN PO 08/28/16 10:30 09/11/16 10:29 08/30/16 10:38 10 MG Albuterol/ Ipratropium (Duoneb) 3 ml QIDR INH 08/28/16 12:00 09/27/16 11:59 08/30/16 07:17 3 ML Albuterol/ Ipratropium (Duoneb) 3 ml Q2H PRN INH 08/28/16 10:30 09/27/16 10:29 Nystatin (Mycostatin Susp) 5 ml QID PO 08/28/16 13:00 09/07/16 12:59 08/30/16 13:02 5 ML Piperacillin Sod/ Tazobactam Sod (Consult) 1 ea UD PRN N/A 08/28/16 11:00 09/27/16 10:59 Objective Vital Signs Date Time Temp Pulse Resp B/P Pulse Ox O2 Delivery O2 Flow Rate FiO2 08/30/16 12:00 Nasal Cannula 2.0 08/30/16 11:00 36.8 102 18 132/85 94 1.5 08/30/16 08:00 Nasal Cannula 2.0 08/30/16 07:17 105 16 86 Room Air 08/30/16 06:55 36.9 105 18 146/83 87 Room Air 08/30/16 04:00 Room Air 08/29/16 23:59 Room Air 08/29/16 23:20 36.6 106 19 121/75 91 Room Air 08/29/16 20:00 Room Air 08/29/16 19:38 36.7 114 22 102/64 91 Room Air 08/29/16 19:16 105 16 96 Nasal Cannula 0.5 08/29/16 17:55 36.7 108 22 120/76 94 Nasal Cannula 1.0 Laboratory Results Last 24 Hours Test 08/30/16 06:51 08/30/16 15:47 White Blood Count 2.39 K/uL Red Blood Count 2.98 M/uL Hemoglobin 9.2 g/dL Hematocrit 28.1 % Mean Corpuscular Volume 94.3 fL Mean Corpuscular Hemoglobin 30.9 pg Mean Corpuscular Hemoglobin Concent 32.7 g/dl Platelet Count 103 K/uL Mean Platelet Volume 9.5 fL Neutrophils (%) (Auto) 89.9 % Lymphocytes (%) (Auto) 7.1 % Monocytes (%) (Auto) 1.3 % Eosinophils (%) (Auto) 0.4 % Basophils (%) (Auto) 0.0 % Neutrophils # (Auto) 2.15 K/uL Lymphocytes # (Auto) 0.17 K/uL Monocytes # (Auto) 0.03 K/uL Eosinophils # (Auto) 0.01 K/uL Basophils # (Auto) 0.00 K/uL RDW Standard Deviation 49.0 fL RDW Coefficient of Variation 14.5 % Immature Granulocyte % (Auto) 1.3 % Immature Granulocyte # (Auto) 0.03 K/uL Hypersegmented Polys 1+ Sodium Level 141 mmol/L Potassium Level 4.3 mmol/L Chloride Level 106 mmol/L Carbon Dioxide Level 29 mmol/L Anion Gap 6.0 mmol/L Blood Urea Nitrogen 44 mg/dl Creatinine 1.60 mg/dl Est Creatinine Clear Calc Drug Dose 68.8 ml/min Estimated GFR () 52.4 Estimated GFR (Non- 45.2 BUN/Creatinine Ratio 27.3 Random Glucose 160 mg/dl Calcium Level 8.8 mg/dl Assessment and Plan GI consult dictated job---[id number] Rectal bleeding--Most likely colonic process. Discussed with patient and that while he has hemorrhoids on exam and that is possible explantion, I could not rule out more serious pathology without direct visualization with colonoscopy either inpt if bleeding continues to improve versus outpt. Discussed increased risk because of excess weight and COPD. Discussed proc and risks which include but not limited to medication reactions, bleeding, perforation, aspiration, and missed lesions. He is favoring doing colonoscopy while inpt so will await medical optimization and schedule at end of hospitalization. No need for telemetry floor from GI standpoint Normocytic Anemia--follow and transfuse prn--check Fe sat, ferritin, B12, folate diarrhea---improved internal hemorrhoids--as above. Thrush--nystating
--- NOTE | 2016-08-30 16:50 | GASTROINTESTINAL CONSULTATION ---
DATE OF CONSULTATION: 08/30/2016 DATE OF CONSULTATION: 08/30/2016. REASON FOR CONSULTATION: Rectal bleeding. CHIEF COMPLAINT: The patient had blisters on his feet, also he does have some rectal bleeding. HISTORY OF PRESENT ILLNESS: The patient admitted he states mostly for blisters on his feet, also some worsening of his shortness of breath. He noted intermittently bright red rectal bleeding but over the last 5 days worse, has seen a fair amount of blood in the toilet. He noted some loosening of his stools as well. Never black stools. Last evening were green with trace amount of blood as well as this morning green with a trace amount of blood. The patient has some odynophagia secondary to thrush, but no dysphagia. No significant change in his weight. No fever, no nausea, vomiting, no GERD, no hiatal hernia. No other GI diagnosis. No liver disease. The patient stated he never had an EGD or colonoscopy before. was with the patient. PAST MEDICAL HISTORY: ALLERGIES: None. MEDICATIONS: On admission Lasix, methotrexate, Asmanex, prednisone, Prilosec, Neurontin. PAST MEDICAL HISTORY: COPD, hypertension, rheumatoid arthritis, obesity. FAMILY HISTORY: Coronary artery disease. SOCIAL HISTORY: Quit tobacco 2001. REVIEW OF SYSTEMS: Ten systems reviewed and all negative. PHYSICAL EXAMINATION: GENERAL: Male, appears stated age in no acute distress. VITAL SIGNS: Most recent vital signs in the chart temp 36.8, pulse 102, respirations 18, BP 132/85, O2 saturation 94% on 1.5 liters of O2. EYES: Nonicteric. EARS, NOSE, MOUTH, AND THROAT: Some thrush. NECK: Without obvious mass or thyroid enlargement. RESPIRATORY: Normal effort, clear to anterior auscultation. CARDIOVASCULAR: Regular rate and rhythm. EXTREMITIES: Edematous. ABDOMEN: Positive bowel sounds, soft, nontender, no obvious organomegaly or masses are appreciated. RECTAL: No obvious mass noted. There were probable internal hemorrhoids noted. Stool was bright red, what was on the glove was mixed with bright red and green being sent to lab for Hemoccult. LYMPH NODES: Negative groin nodes. MUSCULOSKELETAL: Digits and nails normal. SKIN: There is breakdown of skin in the lower extremities. NEUROLOGIC: Cranial nerves intact. Sensation intact. PSYCHIATRIC: Recent and remote memory good. Insight and judgment good. LABORATORY DATA: Hemoglobin 11.4 on admission versus 14.1 in February 2015, went down to 9.2 today on 08/30/2016. PT, PTT were okay. IMPRESSION AND PLAN: 1. Rectal bleeding seems to be improving, it is most likely a colonic process based on history and rectal examination. I discussed with patient and that while he does have hemorrhoids on exam and that is possible explanation I cannot rule out more serious pathology without direct visualization. I recommend a colonoscopy. I did explain to the patient and that he is at increased risk because of his excess weight and COPD. I did discuss procedure and risks which include but are not limited to medication reaction, bleeding, perforation, aspiration and missed lesions. He is favoring doing colonoscopy while inpatient so we will await medical optimization and schedule at the end of the hospitalization. 2. Normocytic anemia. Could be from the bleeding. Follow and transfuse p.r.n. Check iron sat, ferritin, B12, and folate also. 3. Diarrhea seems to be improving. 4. Thrush. Continue nystatin. 5. Hemorrhoids as above.
[2016-08-30] MEDS: SODIUM CHLORIDE 0.9% 1000ML 1,000 ML IV SCH (17:42)
[2016-08-31] VITALS (11 sets, daily range): BP systolic 126–148; BP diastolic 77–91; PULSE 82–105; TEMP 36.8–36.9; O2SAT 87–95
[2016-08-31] MEDS: MoRPHine SULFATE 4 MG/ML 1 ML CARP\\VIAL IV PRN ×2 (02:48→09:09)
[2016-08-31] MEDS: METHYLPREDNISOLONE IV 40 MG in SYRINGE 0 ML IV SCH ×2 (02:48→12:59)
[2016-08-31] MEDS: PIPERACILL/TAZOBAC IV 4.5 GM in DEXTROSE 5% 100ML 100 ML IV SCH ×2 (05:40→12:00)
[2016-08-31 06:04] LABS: HEMATOCRIT 28.4 % (42-52); MEAN CELL VOLUME 95.9 fL (80-100); MEAN CORPUSCULAR HEMOGLOBIN 31.8 pg (25-34); MEAN CORPUSCULAR HGB CONC 33.1 g/dl (32-36); RED BLOOD COUNT 2.96 M/uL (4.7-6.1); WHITE BLOOD COUNT 3.07 K/uL (4.8-10.8)
[2016-08-31 06:34] LABS: COMPLETE YES; LYMPH % 4.2 %; LYMPH ABS # 0.13 K/uL (1.2-3.4); MONO % 0.7 %; NEUT % 94.1 %; PLATELET COUNT 76 K/uL (130-400); PLT ESTIMATE DECREASED
[2016-08-31 06:57] LABS: ALB/GLOB RATIO 0.7 (0.9-2); CALCIUM 8.5 mg/dl (8.5-10.1); CREATININE 1.6 mg/dl (0.60-1.40); FERRITIN 831.2 ng/ml (8.0-388.0); POTASSIUM 4.6 mmol/L (3.5-5.1)
[2016-08-31] MEDS: ALBUT/IPRATROP 3MG/0.5MG NEB 3 ML VIAL INH SCH ×4 (07:00→20:03)
[2016-08-31] MEDS ORDERED: NURSING VERBAL MED ORDER ONE ×3 (08:30→13:15)
[2016-08-31] MEDS: SODIUM CHLORIDE 0.9% 1000ML 1,000 ML IV SCH (08:50)
[2016-08-31] MEDS: NYSTATIN POWDER 15GM BTL EXT SCH ×2 (08:53→20:50)
[2016-08-31] MEDS: PANTOprazole INJ 40 MG in SYRINGE 0 ML IV SCH ×2 (08:53→20:49)
[2016-08-31] MEDS: MENTHOL-ZINC OXIDE 360 APPLN/120 GM TUBE EXT SCH ×2 (08:53→20:52)
[2016-08-31] MEDS: MOMETASONE FUROATE 14 PUFF/1 INHALER INH SCH ×2 (08:53→20:51)
[2016-08-31] MEDS: GABAPENTIN 300 MG CAP PO SCH ×2 (08:54→20:50)
[2016-08-31] MEDS: NYSTATIN SUSP 500,000 U/5 ML UDC PO SCH ×4 (08:54→20:50)
[2016-08-31] MEDS: OXYCODONE HCL IR 5 MG TAB (IMMEDIATE RELEASE) PO PRN ×2 (09:08→21:08)
[2016-08-31 10:10] LABS: FIBRINOGEN* 445 mg/dl (184-400); PROTHROMBIN TIME (PATIENT) 10.7 SECONDS (9.0-12.0)
[2016-08-31] MEDS ORDERED: CYANOCOBALAMIN 1000 MCG/ML VIAL IM ONE (12:45)
--- NOTE | 2016-08-31 12:47 | Gastroenterology Progress Note ---
Progress Note Date of Service: Aug 31, 2016 Subjective Pt evaluation today including: conversation w/ patient, physical exam, chart review, lab review, review of studies, review of inpatient medication list cc f/u rectal bleeding HPI Pt states stools are brown in color now and just has blood on toliet paper. No abd pain. Tolerating diet. Review of Systems Respiratory: No shortness of breath Cardiac: No chest pain Medications Current Inpatient Medications Medications (Trade) Dose Ordered Sig/Janessa Route Start Time Stop Time Status Last Admin Dose Admin Gabapentin (Neurontin Cap) 300 mg BID PO 08/28/16 21:00 09/27/16 20:59 08/31/16 08:54 300 MG Mometasone Furoate (Asmanex 220MCG Inh) 1 puff BID INH 08/28/16 21:00 09/27/16 20:59 08/29/16 08:12 1 PUFF Acetaminophen (Tylenol Tab) 650 mg Q4H PRN PO 08/28/16 10:30 09/27/16 10:29 Polyethylene (Miralax Powder Packet) 17 gm DAILY PRN PO 08/28/16 10:45 09/27/16 10:44 Ondansetron HCl 4 mg 4 mg Q6H PRN IV 08/28/16 10:30 09/27/16 10:29 Piperacillin Sod/ Tazobactam Sod 4.5 gm/Dextrose 120 ml @ 28.75 mls/ hr Q8@0400,1200,2000 IV 08/28/16 20:00 09/07/16 13:59 08/31/16 05:40 28.75 MLS/HR Methylprednisolone Sodium Succinate/ Syringe (Solu-Medrol IV/ Syringe) 0.64 ml @ 1.5 mls/min Q12H IV 08/28/16 13:00 09/27/16 10:29 08/31/16 02:48 1.5 MLS/MIN Nystatin 1 appln 1 appln BID EXT 08/28/16 21:00 09/27/16 20:59 08/29/16 08:12 1 APPLN Pantoprazole Sodium/Syringe (Protonix Inj/ Syringe) 10 ml @ 5 mls/min DAILY@09,21 IV 08/28/16 13:00 09/27/16 10:29 08/31/16 08:53 5 MLS/MIN Morphine Sulfate (MoRPHine SULFATE INJ) 2 mg Q4H PRN IV 08/28/16 10:30 09/11/16 10:29 08/30/16 11:59 2 MG Morphine Sulfate (MoRPHine SULFATE INJ) 4 mg Q4H PRN IV 08/28/16 10:30 09/11/16 10:29 08/31/16 09:09 4 MG Oxycodone HCl (Roxicodone Immediate Rel Tab) 10 mg Q6 PRN PO 08/28/16 10:30 09/11/16 10:29 08/31/16 09:08 10 MG Albuterol/ Ipratropium (Duoneb) 3 ml QIDR INH 08/28/16 12:00 09/27/16 11:59 08/31/16 07:00 3 ML Albuterol/ Ipratropium (Duoneb) 3 ml Q2H PRN INH 08/28/16 10:30 09/27/16 10:29 Nystatin (Mycostatin Susp) 5 ml QID PO 08/28/16 13:00 09/07/16 12:59 08/31/16 08:54 5 ML Piperacillin Sod/ Tazobactam Sod (Consult) 1 ea UD PRN N/A 08/28/16 11:00 09/27/16 10:59 Menthol/Zinc Oxide (Calmoseptine Oint) 1 appln BID EXT 08/31/16 09:00 09/30/16 08:59 08/31/16 08:53 1 APPLN Objective Vital Signs Date Time Temp Pulse Resp B/P Pulse Ox O2 Delivery O2 Flow Rate FiO2 08/31/16 11:55 91 16 91 Room Air 08/31/16 11:18 36.9 95 18 126/83 93 Room Air 08/31/16 08:00 Nasal Cannula 2.0 08/31/16 07:00 36.9 103 18 136/90 87 Room Air 08/31/16 07:00 105 16 90 Room Air 08/31/16 04:00 Room Air 08/31/16 02:56 36.8 103 18 142/90 89 Room Air 08/31/16 00:06 36.8 98 18 147/77 90 Room Air 08/30/16 23:59 Room Air 08/30/16 20:00 Room Air 08/30/16 19:22 37.1 102 22 141/96 91 Room Air 08/30/16 19:16 100 16 91 Room Air 08/30/16 16:04 93 Room Air 08/30/16 15:58 94 16 93 Room Air 08/30/16 15:54 37.1 89 20 127/84 91 Room Air Physical Exam General Appearance: WD/WN, no apparent distress Respiratory/Chest: lungs clear, no respiratory distress Cardiovascular: no murmur Abdomen: normal bowel sounds, non tender, soft Laboratory Results Last 24 Hours Test 08/30/16 16:52 08/31/16 05:38 08/31/16 09:45 Heparin-PF4 Antibody Screen NEG White Blood Count 3.07 K/uL Red Blood Count 2.96 M/uL Hemoglobin 9.4 g/dL Hematocrit 28.4 % Mean Corpuscular Volume 95.9 fL Mean Corpuscular Hemoglobin 31.8 pg Mean Corpuscular Hemoglobin Concent 33.1 g/dl Platelet Count 76 K/uL Mean Platelet Volume 10.0 fL Neutrophils (%) (Auto) 94.1 % Lymphocytes (%) (Auto) 4.2 % Monocytes (%) (Auto) 0.7 % Eosinophils (%) (Auto) 0.0 % Basophils (%) (Auto) 0.0 % Neutrophils # (Auto) 2.89 K/uL Lymphocytes # (Auto) 0.13 K/uL Monocytes # (Auto) 0.02 K/uL Eosinophils # (Auto) 0.00 K/uL Basophils # (Auto) 0.00 K/uL RDW Standard Deviation 49.3 fL RDW Coefficient of Variation 14.4 % Immature Granulocyte % (Auto) 1.0 % Immature Granulocyte # (Auto) 0.03 K/uL Platelet Estimate DECREASED Sodium Level 141 mmol/L Potassium Level 4.6 mmol/L Chloride Level 105 mmol/L Carbon Dioxide Level 30 mmol/L Anion Gap 6.0 mmol/L Blood Urea Nitrogen 37 mg/dl Creatinine 1.60 mg/dl Est Creatinine Clear Calc Drug Dose 68.9 ml/min Estimated GFR () 52.4 Estimated GFR (Non- 45.2 BUN/Creatinine Ratio 23.0 Random Glucose 177 mg/dl Calcium Level 8.5 mg/dl Iron Level 62 mcg/dl Total Iron Binding Capacity 171 mcg/dl Transferrin 156 mg/dl Transferrin % Saturation 28 % Ferritin 831.2 ng/ml Total Bilirubin 0.7 mg/dl Aspartate Amino Transf (AST/SGOT) 19 U/L Alanine Aminotransferase (ALT/SGPT) 62 U/L Alkaline Phosphatase 83 U/L Total Protein 6.0 gm/dl Albumin 2.4 gm/dl Globulin 3.6 gm/dl Albumin/Globulin Ratio 0.7 Vitamin B12 Level 200 pg/mL Folate 3.63 ng/mL Rheumatoid Factor 44.1 U/mL Prothrombin Time 10.7 SECONDS Prothromb Time International Ratio 1.0 Fibrinogen 445 mg/dl Fibrin Degradation Products >40 mcg/ml Assessment and Plan Rectal bleeding--Most likely colonic process. only on toilet paper now. Awaiting optimization of medical status prior to colonoscopy. Will put on clear liquids tomorrow in case he would be ready for thursday. Normocytic Anemia--Fe sat normal, ferriitin high 831 could be acute phase reactant neeeds repeated when not ill, B12 and folate low B12 deficiency--injection daily for 7 days then montlhy folate deficiency---po supplements diarrhea---resolved internal hemorrhoids--may be source of bleeding. Thrush--nystating
--- NOTE | 2016-08-31 13:02 | Oncology Consultation ---
Oncology/Heme Consultation Date of Consultation: Aug 31, 2016. Attending Physician: Ander Kaiser M.D. Reason for Consultation: Thrombocytopenia History of Present Illness Mr. Solorzano is a 61 year old man with a history of rheumatoid arthritis, chronic bronchitis, and PVD with foot ulcers. He is chronically on steroids, though was on a taper from high-dose recently. He was admitted with SIRS/sepsis that was attributed to his foot ulcers or possibly to bronchitis. He has been on Zosyn since admission. He also, during his stay, has developed a lower GI bleed. At first, his stool was grossly bloody, but in the last day or two he's had just a small amount of blood on the toilet tissue. He denies any calf swelling or pain, chest pain, or palpitations. Past Medical/Surgical History Medical Problems: (1) Dehydration Status: Acute (2) GI bleed Status: Acute (3) Hypotension Status: Acute (4) Lower extremity edema Status: Acute (5) SOB (shortness of breath) Status: Acute Family History FH: heart disease FHx: cancer Hypertension Social History Smoking Status: Former Smoker Marital Status: Housing Status: lives with family Occupation Status: employed Allergies Coded Allergies: No Known Allergies (Verified , 08/28/16) Home Medications Scheduled Etanercept (Enbrel), 1 DOSE INJ Mo Furosemide (Lasix), 10 MG PO UD Gabapentin (Neurontin), 300 MG PO BID Methotrexate (Trexall), 10 MG PO WK Mometasone Furoate (Inhalation (Asmanex Twisthaler 120 Me), 1 INHA INH BID Omeprazole (Prilosec), 20 MG PO DAILY Prednisone (Prednisone), 1 TAB PO DAILY [Hctz/Losartan], 1 TAB PO DAILY Current Inpatient Medications Current Inpatient Medications Medications (Trade) Dose Ordered Sig/Janessa Route Start Time Stop Time Status Last Admin Dose Admin Gabapentin (Neurontin Cap) 300 mg BID PO 08/28/16 21:00 09/27/16 20:59 08/31/16 08:54 300 MG Mometasone Furoate (Asmanex 220MCG Inh) 1 puff BID INH 08/28/16 21:00 09/27/16 20:59 08/29/16 08:12 1 PUFF Acetaminophen (Tylenol Tab) 650 mg Q4H PRN PO 08/28/16 10:30 5/6/17 10:29 Polyethylene (Miralax Powder Packet) 17 gm DAILY PRN PO 08/28/16 10:45 09/27/16 10:44 Ondansetron HCl 4 mg 4 mg Q6H PRN IV 08/28/16 10:30 09/27/16 10:29 Piperacillin Sod/ Tazobactam Sod 4.5 gm/Dextrose 120 ml @ 28.75 mls/ hr Q8@0400,1200,2000 IV 08/28/16 20:00 09/07/16 13:59 08/31/16 05:40 28.75 MLS/HR Methylprednisolone Sodium Succinate/ Syringe (Solu-Medrol IV/ Syringe) 0.64 ml @ 1.5 mls/min Q12H IV 08/28/16 13:00 09/27/16 10:29 08/31/16 02:48 1.5 MLS/MIN Nystatin 1 appln 1 appln BID EXT 08/28/16 21:00 09/27/16 20:59 08/29/16 08:12 1 APPLN Pantoprazole Sodium/Syringe (Protonix Inj/ Syringe) 10 ml @ 5 mls/min DAILY@09,21 IV 08/28/16 13:00 09/27/16 10:29 08/31/16 08:53 5 MLS/MIN Morphine Sulfate (MoRPHine SULFATE INJ) 2 mg Q4H PRN IV 08/28/16 10:30 09/11/16 10:29 08/30/16 11:59 2 MG Morphine Sulfate (MoRPHine SULFATE INJ) 4 mg Q4H PRN IV 08/28/16 10:30 09/11/16 10:29 08/31/16 09:09 4 MG Oxycodone HCl (Roxicodone Immediate Rel Tab) 10 mg Q6 PRN PO 08/28/16 10:30 09/11/16 10:29 08/31/16 09:08 10 MG Albuterol/ Ipratropium (Duoneb) 3 ml QIDR INH 08/28/16 12:00 09/27/16 11:59 08/31/16 07:00 3 ML Albuterol/ Ipratropium (Duoneb) 3 ml Q2H PRN INH 08/28/16 10:30 09/27/16 10:29 Nystatin (Mycostatin Susp) 5 ml QID PO 08/28/16 13:00 09/07/16 12:59 08/31/16 08:54 5 ML Piperacillin Sod/ Tazobactam Sod (Consult) 1 ea UD PRN N/A 08/28/16 11:00 09/27/16 10:59 Menthol/Zinc Oxide (Calmoseptine Oint) 1 appln BID EXT 08/31/16 09:00 09/30/16 08:59 08/31/16 08:53 1 APPLN Cyanocobalamin (Vitamin B-12 Inj) 1,000 mcg DAILY IM 09/01/16 09:00 10/01/16 08:59 Folic Acid (Folvite Tab) 1 mg QAM PO 09/01/16 09:00 10/01/16 08:59 Cyanocobalamin (Vitamin B-12 Inj) 1,000 mcg NOW ONCE IM 08/31/16 12:45 08/31/16 12:46 Folic Acid (Folvite Tab) 1 mg NOW ONCE PO 08/31/16 12:45 08/31/16 12:46 Review of Systems Constitutional: No chills, No fever Eyes: No worsening of vision ENT: No unusual epistaxis Respiratory: No hemoptysis, No shortness of breath Cardiovascular: No chest pain Abdomen: No nausea, No pain, No vomiting Musculoskeletal: No calf pain, No swelling Genitourinary - Male: No dysuria, No hematuria Neurologic: No numbness/tingling, No weakness Hematologic / Lymphatic: + abnormal bleeding/bruising (easy bruising) Integumentary: + problem reported Physical Exam Date Time Temp Pulse Resp B/P Pulse Ox O2 Delivery O2 Flow Rate FiO2 08/31/16 11:55 91 16 91 Room Air 08/31/16 11:18 36.9 95 18 126/83 93 Room Air 08/31/16 08:00 Nasal Cannula 2.0 08/31/16 07:00 36.9 103 18 136/90 87 Room Air 08/31/16 07:00 105 16 90 Room Air 08/31/16 04:00 Room Air 08/31/16 02:56 36.8 103 18 142/90 89 Room Air 08/31/16 00:06 36.8 98 18 147/77 90 Room Air 08/30/16 23:59 Room Air 08/30/16 20:00 Room Air 08/30/16 19:22 37.1 102 22 141/96 91 Room Air 08/30/16 19:16 100 16 91 Room Air 08/30/16 16:04 93 Room Air 08/30/16 15:58 94 16 93 Room Air 08/30/16 15:54 37.1 89 20 127/84 91 Room Air General Appearance: no apparent distress, + obese Eyes: sclerae normal (anicteric) ENT: pharynx normal (mucous membranes moist) Respiratory/Chest: lungs clear, no respiratory distress Cardiovascular: regular rate, rhythm, no murmur Abdomen/GI: normal bowel sounds, non tender, soft Extremities/Musculoskelatal: + pertinent finding (chronic venous stasis changes , non-pitting edema, and multiple wounds on both legs) Neurologic/Psych: alert, oriented x 3 Skin: + pertinent finding (numerous ecchymoses, ulcers, and scabs on his arms and legs) Laboratory Results Last 24 Hours Test 08/30/16 16:52 08/31/16 05:38 08/31/16 09:45 Heparin-PF4 Antibody Screen NEG White Blood Count 3.07 K/uL Red Blood Count 2.96 M/uL Hemoglobin 9.4 g/dL Hematocrit 28.4 % Mean Corpuscular Volume 95.9 fL Mean Corpuscular Hemoglobin 31.8 pg Mean Corpuscular Hemoglobin Concent 33.1 g/dl Platelet Count 76 K/uL Mean Platelet Volume 10.0 fL Neutrophils (%) (Auto) 94.1 % Lymphocytes (%) (Auto) 4.2 % Monocytes (%) (Auto) 0.7 % Eosinophils (%) (Auto) 0.0 % Basophils (%) (Auto) 0.0 % Neutrophils # (Auto) 2.89 K/uL Lymphocytes # (Auto) 0.13 K/uL Monocytes # (Auto) 0.02 K/uL Eosinophils # (Auto) 0.00 K/uL Basophils # (Auto) 0.00 K/uL RDW Standard Deviation 49.3 fL RDW Coefficient of Variation 14.4 % Immature Granulocyte % (Auto) 1.0 % Immature Granulocyte # (Auto) 0.03 K/uL Platelet Estimate DECREASED Sodium Level 141 mmol/L Potassium Level 4.6 mmol/L Chloride Level 105 mmol/L Carbon Dioxide Level 30 mmol/L Anion Gap 6.0 mmol/L Blood Urea Nitrogen 37 mg/dl Creatinine 1.60 mg/dl Est Creatinine Clear Calc Drug Dose 68.9 ml/min Estimated GFR () 52.4 Estimated GFR (Non- 45.2 BUN/Creatinine Ratio 23.0 Random Glucose 177 mg/dl Calcium Level 8.5 mg/dl Iron Level 62 mcg/dl Total Iron Binding Capacity 171 mcg/dl Transferrin 156 mg/dl Transferrin % Saturation 28 % Ferritin 831.2 ng/ml Total Bilirubin 0.7 mg/dl Aspartate Amino Transf (AST/SGOT) 19 U/L Alanine Aminotransferase (ALT/SGPT) 62 U/L Alkaline Phosphatase 83 U/L Total Protein 6.0 gm/dl Albumin 2.4 gm/dl Globulin 3.6 gm/dl Albumin/Globulin Ratio 0.7 Vitamin B12 Level 200 pg/mL Folate 3.63 ng/mL Rheumatoid Factor 44.1 U/mL Prothrombin Time 10.7 SECONDS Prothromb Time International Ratio 1.0 Fibrinogen 445 mg/dl Fibrin Degradation Products >40 mcg/ml Assessment & Plan Mr. Solorzano is a 61 year old man with morbid obesity, peripheral vascular disease, RA, and chronic bronchitis. He is admitted for sepsis related to either bronchitis or to LE wound infection. He also has a mild COPD exacerbation. He is chronically on steroids and is on prednisone currently. I am consulted regarding thrombocytopenia. I suspect his low platelet count is multifactorial, with components of sepsis/ inflammation, medications (Zosyn), and his GI bleeding. He also appears to be folate and B12 deficient, explaining mild leukopenia with hypersegmented polys. His moderate anemia is likely related to his vitamin deficiencies and to his GI bleeding. I would supplement him with subcutaneous vitamin B12 and oral folic acid. The folic acid deficiency may be related to his methotrexate. He has no history to suggest celiac sprue or IBD. I would check intrinsic factor antibodies to rule out pernicious anemia in this patient with a history of autoimmunity. If possible, I would also consider narrowing his antibiotics to an agent that is less marrow suppressive.
--- NOTE | 2016-08-31 15:06 | Progress Note ---
Subjective Date of Service: Aug 31, 2016. Subjective Pt evaluation today including: conversation w/ patient, conversation w/ family , physical exam, chart review, lab review, review of studies, review of inpatient medication list Pain: Denies pain PO Intake: good oral intake Voiding: no voiding problems, no incontinence Pt is seen and examined by me. Pt denies Cp, sob, dizziness, palpitation, nausea, vomiting, and diarrhea. Overnight BM with bright blood afterwards, no dark stool.Pt denies fever, chills, rigors and sweats. Pt denies blurry vision and headache.Pt is present in the room during time of exam, all questions answered. Problem List Medical Problems: (1) Dehydration Status: Acute (2) GI bleed Status: Acute (3) Hypotension Status: Acute (4) Lower extremity edema Status: Acute (5) SOB (shortness of breath) Status: Acute Review of Systems Constitutional: No chills, No fever Respiratory: No cough, No dyspnea at rest, No hemoptysis, No shortness of breath, No wheezing Cardiac: No chest pain, No orthopnea, No palpitations Abdomen: + GI bleeding (bright blood after BM), No diarrhea, No nausea, No vomiting Neurologic: No numbness/tingling, No weakness Psychiatric: No anxiety, No insomnia Heme: No abnormal bleeding/bruising Skin: + rash Medications Medications (Trade) Dose Ordered Sig/Janessa Route Start Time Stop Time Status Last Admin Dose Admin Sodium Chloride (Nss 1000ml) 1,000 ml @ 75 mls/hr [id number] IV 08/30/16 16:00 08/31/16 10:37 DC 08/31/16 08:50 75 MLS/HR Menthol/Zinc Oxide (Calmoseptine Oint) 1 appln BID EXT 08/31/16 09:00 09/30/16 08:59 08/31/16 08:53 1 APPLN Objective Vital Signs Date Time Temp Pulse Resp B/P Pulse Ox O2 Delivery O2 Flow Rate FiO2 08/31/16 12:00 Room Air 08/31/16 11:55 91 16 91 Room Air 08/31/16 11:18 36.9 95 18 126/83 93 Room Air 08/31/16 08:00 Nasal Cannula 2.0 08/31/16 07:00 36.9 103 18 136/90 87 Room Air 08/31/16 07:00 105 16 90 Room Air 08/31/16 04:00 Room Air 08/31/16 02:56 36.8 103 18 142/90 89 Room Air 08/31/16 00:06 36.8 98 18 147/77 90 Room Air 08/30/16 23:59 Room Air 08/30/16 20:00 Room Air 08/30/16 19:22 37.1 102 22 141/96 91 Room Air 08/30/16 19:16 100 16 91 Room Air 08/30/16 16:04 93 Room Air 08/30/16 15:58 94 16 93 Room Air 08/30/16 15:54 37.1 89 20 127/84 91 Room Air Physical Exam General Appearance: no apparent distress, + obese Neck: supple Respiratory/Chest: lungs clear, normal breath sounds, no respiratory distress, no accessory muscle use Cardiovascular: regular rate, rhythm, no gallop, no murmur Abdomen: normal bowel sounds, non tender, soft Neurologic/Psychiatric: alert, normal mood/affect, oriented x 3 Skin: no rash Laboratory Results Last 24 Hours Test 08/30/16 16:52 08/31/16 05:38 08/31/16 09:45 Heparin-PF4 Antibody Screen NEG White Blood Count 3.07 K/uL Red Blood Count 2.96 M/uL Hemoglobin 9.4 g/dL Hematocrit 28.4 % Mean Corpuscular Volume 95.9 fL Mean Corpuscular Hemoglobin 31.8 pg Mean Corpuscular Hemoglobin Concent 33.1 g/dl Platelet Count 76 K/uL Mean Platelet Volume 10.0 fL Neutrophils (%) (Auto) 94.1 % Lymphocytes (%) (Auto) 4.2 % Monocytes (%) (Auto) 0.7 % Eosinophils (%) (Auto) 0.0 % Basophils (%) (Auto) 0.0 % Neutrophils # (Auto) 2.89 K/uL Lymphocytes # (Auto) 0.13 K/uL Monocytes # (Auto) 0.02 K/uL Eosinophils # (Auto) 0.00 K/uL Basophils # (Auto) 0.00 K/uL RDW Standard Deviation 49.3 fL RDW Coefficient of Variation 14.4 % Immature Granulocyte % (Auto) 1.0 % Immature Granulocyte # (Auto) 0.03 K/uL Platelet Estimate DECREASED Sodium Level 141 mmol/L Potassium Level 4.6 mmol/L Chloride Level 105 mmol/L Carbon Dioxide Level 30 mmol/L Anion Gap 6.0 mmol/L Blood Urea Nitrogen 37 mg/dl Creatinine 1.60 mg/dl Est Creatinine Clear Calc Drug Dose 68.9 ml/min Estimated GFR () 52.4 Estimated GFR (Non- 45.2 BUN/Creatinine Ratio 23.0 Random Glucose 177 mg/dl Calcium Level 8.5 mg/dl Iron Level 62 mcg/dl Total Iron Binding Capacity 171 mcg/dl Transferrin 156 mg/dl Transferrin % Saturation 28 % Ferritin 831.2 ng/ml Total Bilirubin 0.7 mg/dl Aspartate Amino Transf (AST/SGOT) 19 U/L Alanine Aminotransferase (ALT/SGPT) 62 U/L Alkaline Phosphatase 83 U/L Total Protein 6.0 gm/dl Albumin 2.4 gm/dl Globulin 3.6 gm/dl Albumin/Globulin Ratio 0.7 Vitamin B12 Level 200 pg/mL Folate 3.63 ng/mL Rheumatoid Factor 44.1 U/mL Prothrombin Time 10.7 SECONDS Prothromb Time International Ratio 1.0 Fibrinogen 445 mg/dl Fibrin Degradation Products >40 mcg/ml Assessment and Plan Acute bronchitis with SIRS. Hold Zosyn secondary to thrombocytopenia, continue steroids, oxygen, nebs. Leukopenia with a white count of 3.07 improved from 2.39 Blood cultures so far negative. Normal lactic acid, however on Poc lactic acid was elevated at admission. Consult pending, we again ask nurse to touch base with data quality consultant. ID consult pending GI Bleed/Hx of hemorrhoids Drop in Hemoglobin from 9.5 to 9.2 which is about a 2 g drop since admission from 11.4. Today Hgb 9.4, no blood BM reported, except little after bright blood per rectum. possible colonoscopy if medical stable on Thursday. Continue IV Protonix 40 mg twice a day. Acute on chronic kidney injury Patient creatinine of 1.6 remain stable after overnight IV fluid to 1.6. Will will discontinue fluids. Patient has a history of stage III chronic kidney disease. Avoid nephrotoxic agents such as NSAIDs. We will repeat BMP in a.m. Thrombocytopenia Acute drop in platelets from 227 to 103 and today 76. Per Hem/Onc: low platelet count is multifactorial, with components of sepsis/ inflammation, medications (Zosyn), and his GI bleeding. He also appears to be folate and B12 deficient, explaining mild leukopenia with hypersegmented polys. Subcutaneous vitamin B12 and oral folic acid. The folic acid deficiency may be related to his methotrexate. I would check intrinsic factor antibodies to rule out pernicious anemia in this patient with a history of autoimmunity. Hold Zosyn. Leg ulcers Local woundl care Wound care consult Follow up on wound cultures. Continued [facility] stay due to: multiple IV medications needed Discharge planning: home
--- NOTE | 2016-08-31 16:25 | Pulmonary Consultation ---
History General Date of Service: Aug 31, 2016. Stated Complaint: SIRS, acute on chronic hypoxemia/dyspnea HPI The patient is a 61 year old male who presents to [facility] with complaints of SIRS. The patient's primary care provider is Sherwin Singleton D.O.. 61y/o chronically immunosuppressed male admitted through the [facility] ER with: Exacerbation of bronchitis, acute renal failure, anemia with bright red blood per rectum and bilateral foot cellulitis. Chronic and progressive respiratory issues (cough and JASSO) starting in 04/13/17 medically treated with inhalers, anti-biotics and oral steroids with little benefit. (see work-up and treatment hx below and PmHx). Patient still notes dyspnea at rest at this time with use of accessory muscles but denies active sputum production. During our conversation he did express 2-3 episodes over the last 2-3 months of chest pain with exertion radiating down his left arm and signs consistent with chronic rhinitis. At this time he notes improvement in his overall respiratory since his admission. Denies: Fever, chills, weight loss, pleurisy, Hemoptysis Positive's: Most likely history of businesses exposure Current Work-Up: CXR: no acute changes WBC: 3K PLT: 143K H/H: 03/22 INR/PT/aPTT: 1.0/10.7/20.5 Fibrinogen: > 445 Fibrin Degrad Products: > 40 Heparin-PF4 Ab Screen: Negative RA: 44.1 (0-15) Troponin I: > 0.327 Pro-BNP: 653 BUN/Cr: 67/2.40 Lactic Acide: > 2.32 Current Treatment: - Asmanex 220mcg 1 puff BID - Solu-Medrol 40mg IV Q12 - DuoNebs QID Previous Work-Up: Cardiac Echo (07/10/16) poor study secondary to patients position and body habitus LV: EF= 60-65%, type 1 diastolic dysfunction RV: anatomically grossly WNL, TAPSE: >1.5cm, function: WNL CT Thorax (06/06/2016) Mild ectasia of the thoracic aorta Right thyroid goiter/3cm nodule No significant adenopathy No focal parenchymal changes Barium Swallow (07/21/2016) No fidel aspiration Trace penetration Mild esophageal irritability Mild esophageal reflux noted Treated as an out-patient: Levaquin 500mg QD x2 Prednisone michelle Zithromax x2 Clotrimazole Oxygen therapy 2L with activity 6 min Walk Testing (08/11/16) healthy subjects can walk 400-700 meters Baseline O2 needs: Initially, no supplemental oxygen was needed. Baseline VS and Natalie scale: HR: 86,~RR: 12 ,~O2 sat: 92%,~Natalie scale score: 2, ~BP: 144/90 1 min VS and Natalie Scale: HR: 110,~O2 sat: 90% 2 min VS and Natalie Scale: HR: 115,~O2 sat: 88%,~Pt. dropped quickly to 87%, then went to back up 88% Put pt. on 2L of O2. 3 min VS and Natalie Scale: HR: 130,~O2 sat: 97%,~2L of O2 4 min VS and Natalie Scale: HR: 130,~O2 sat: 91%,~2L of O2 Pre-Intervention: the patient walked a total of 400 feet or 122 meters Interventions: supplemental oxygen was applied at 2 liters per minute Post-Intervention: the patient walked a total of 600 feet or 188 meter only increase of only 18 meters The patient complains of shorteness of breath. Reason for Premature Termination: Stopped per Pt., pt. didn't want to go further. Historian: patient, EMS Review of Systems Constitutional: reports: weakness Eyes: reports: no symptoms ENT: reports: rhinorrhea Cardiovascular: reports: chest pain, chest tightness Respiratory: reports: JASSO, cough, shortness of breath Gastrointestinal: reports: hematochezia, hemorrhoids Genitourinary - Male: reports: no symptoms Musculoskeletal: reports: joint pain, myalgias Integumentary: reports: no symptoms Neurologic: reports: no symptoms Psychiatric: reports: no symptoms Endocrine: no symptoms Hematologic / Lymphatic: no symptoms Allergic / Immunologic: no symptoms Past Medical History Past Medical History: 1. Acute bronchitis 2. Rheumatoid Arthritis (Prednisone, MTX) Previously on Embrel but d/c 03/2016 Humira: to start ? 3. Dysphagia 4. Hypertension 5. Immunosuppressed status 6. Multinodular goiter 7. Oral thrush 8. Reactive airway disease 9. Rheumatoid arthritis 10. Chronic cough Dr. Tejada 07/29/2016 URI in 03/2017 Zithromax x2 with no improvement Levaquin and steroid michelle Dxd: reactive airway disease (started on Asmanex 220mcg) 11. PVD 12. Foot Ulcers 13. Morbid Obesity Past Surgical History: Per the patient noncontributory Family History FH: heart disease FHx: cancer Hypertension Mother 1. skin cancer Father 1. cardiac disorder 2. deafness or hearing loss 3. 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 Denied: History of Drug use Former smoker Rarely consumes alcohol Hx Tobacco Use In Past Year?: No Smoking Status: Former Smoker Marital status: Occupational Status: employed History of MDRO History of MDRO: No Allergies Coded Allergies: No Known Allergies (Verified , 08/28/16) Current Medications Reported Home Medications Medications Dose Route/Sig Max Daily Dose Days Date Category [Hctz/Losartan] 100/12.5 Tab 1 Tab PO DAILY 08/28/16 Reported Prilosec (Omeprazole) 20 Mg Capcr 20 Mg PO DAILY 08/28/16 Reported Asmanex Twisthaler 120 Me (Mometasone Furoate (Inhalation) 220 Mcg/Inh Aer 1 Inha INH BID 08/28/16 Reported Enbrel (Etanercept) 50 Mg/Ml Inj 1 Dose INJ MO 08/28/16 Reported Prednisone 20 Mg Tab 1 Tab PO DAILY 08/28/16 Reported Neurontin (Gabapentin) 300 Mg Cap 300 Mg PO BID 08/28/16 Reported Trexall (Methotrexate) 10 Mg Tab 10 Mg PO WK 08/28/16 Reported Lasix (Furosemide) 20 Mg Tab 10 Mg PO UD 08/28/16 Reported Physical Physical Exam Vital Signs: Date Time Temp Pulse Resp B/P Pulse Ox O2 Delivery O2 Flow Rate FiO2 08/31/16 15:31 36.8 97 22 148/90 91 Room Air 08/31/16 12:00 Room Air 08/31/16 11:55 91 16 91 Room Air 08/31/16 11:18 36.9 95 18 126/83 93 Room Air 08/31/16 08:00 Nasal Cannula 2.0 08/31/16 07:00 36.9 103 18 136/90 87 Room Air 08/31/16 07:00 105 16 90 Room Air 08/31/16 04:00 Room Air 08/31/16 02:56 36.8 103 18 142/90 89 Room Air 08/31/16 00:06 36.8 98 18 147/77 90 Room Air 08/30/16 23:59 Room Air 08/30/16 20:00 Room Air 08/30/16 19:22 37.1 102 22 141/96 91 Room Air 08/30/16 19:16 100 16 91 Room Air General Appearance: mild distress, obese Head: NORMOCEPHALIC, ATRAUMATIC Eyes: PERRLA, NO DISCHARGE, EOMI, SCLERAE NORMAL ENT: NORMAL EAR EXAM, NORMAL NASAL EXAM, other (poor dentition no signs of thrush at this time) Neck: NORMAL RANGE OF MOTION, NO TENDERNESS, TRACHEA MIDLINE, NO STRIDOR, other (increased radius of his neck notably short as well) Respiratory: other (decreased breath sounds bilaterally some rhonchi appreciated on inspiration and expiration/thoracic ultrasound shows B-lines in the lower one third of the hemithorax bilaterally no pleural effusions noted) Cardiovasular: REGULAR RATE/RHYTHM, NORMAL S1S2, NO M/G/R, NO MURMUR Abdomen: NON TENDER, NORMAL BOWEL SOUNDS, NO REBOUND, NO MASSES Genitourinary - Male: EXTERNAL GENITALIA NORMAL Back: NORMAL INSPECTION, NO MIDLINE TENDERNESS, NO CVA TENDERNESS Upper Extremities: NO EDEMA, other (multiple skin wounds bilateral upper extremities suggestive of chronic steroid use) Lower Extremities: other (left side multiple bruises appreciated on the anterior lower leg from the montesinos down to the mid calf/bilateral lower extremity healing ulcers) Pulses: carotid (R) (1+), carotid (L) (1+), posterior tibial (R), posterior tibial (L) (1+) Neuro: ALERT, ORIENTED x 3, NORMAL MOTOR EXAM, NORMAL SENSATION, NORMAL CEREBELLAR EXAM Reflexes: biceps (R) (2+), bicpes (L) (2+) Babinski Testing: right (downgoing), left (downgoing) Diagnostics Labs Results Past 24 Hours Test 08/30/16 16:52 08/31/16 05:38 08/31/16 09:45 Range/Units Heparin-PF4 Antibody Screen NEG NEG White Blood Count 3.07 4.8-10.8 K/uL Red Blood Count 2.96 4.7-6.1 M/uL Hemoglobin 9.4 14.0-18.0 g/dL Hematocrit 28.4 42-52 % Mean Corpuscular Volume 95.9 80-100 fL Mean Corpuscular Hemoglobin 31.8 25-34 pg Mean Corpuscular Hemoglobin Concent 33.1 32-36 g/dl Platelet Count 76 130-400 K/uL Mean Platelet Volume 10.0 7.4-10.4 fL Neutrophils (%) (Auto) 94.1 % Lymphocytes (%) (Auto) 4.2 % Monocytes (%) (Auto) 0.7 % Eosinophils (%) (Auto) 0.0 % Basophils (%) (Auto) 0.0 % Neutrophils # (Auto) 2.89 1.4-6.5 K/uL Lymphocytes # (Auto) 0.13 1.2-3.4 K/uL Monocytes # (Auto) 0.02 0.11-0.59 K/uL Eosinophils # (Auto) 0.00 0-0.5 K/uL Basophils # (Auto) 0.00 0-0.2 K/uL RDW Standard Deviation 49.3 36.4-46.3 fL RDW Coefficient of Variation 14.4 11.5-14.5 % Immature Granulocyte % (Auto) 1.0 % Immature Granulocyte # (Auto) 0.03 0.00-0.02 K/uL Platelet Estimate DECREASED Sodium Level 141 136-145 mmol/L Potassium Level 4.6 3.5-5.1 mmol/L Chloride Level 105 98-107 mmol/L Carbon Dioxide Level 30 21-32 mmol/L Anion Gap 6.0 3-11 mmol/L Blood Urea Nitrogen 37 7-18 mg/dl Creatinine 1.60 0.60-1.40 mg/dl Est Creatinine Clear Calc Drug Dose 68.9 ml/min Estimated GFR () 52.4 Estimated GFR (Non- 45.2 BUN/Creatinine Ratio 23.0 10-20 Random Glucose 177 70-99 mg/dl Calcium Level 8.5 8.5-10.1 mg/dl Iron Level 62 35-175 mcg/dl Total Iron Binding Capacity 171 250-450 mcg/dl Transferrin 156 200-360 mg/dl Transferrin % Saturation 28 20-50 % Ferritin 831.2 8.0-388.0 ng/ml Total Bilirubin 0.7 0.2-1 mg/dl Aspartate Amino Transf (AST/SGOT) 19 15-37 U/L Alanine Aminotransferase (ALT/SGPT) 62 12-78 U/L Alkaline Phosphatase 83 45-117 U/L Total Protein 6.0 6.4-8.2 gm/dl Albumin 2.4 3.4-5.0 gm/dl Globulin 3.6 2.5-4.0 gm/dl Albumin/Globulin Ratio 0.7 0.9-2 Vitamin B12 Level 200 211-911 pg/mL Folate 3.63 >5.38 ng/mL Rheumatoid Factor 44.1 0-15 U/mL Prothrombin Time 10.7 9.0-12.0 SECONDS Prothromb Time International Ratio 1.0 0.9-1.1 Fibrinogen 445 184-400 mg/dl Fibrin Degradation Products >40 <10 mcg/ml Radiology Interpretation: CXR NORMAL EKG Sinus tachycardia Impression Assessment and Plan 61-year-old male with acute on chronic respiratory insufficiency: #1 JASSO: Patient's has had increasing dyspnea on exertion since March 2016. He is undergone 4 rounds of antibiotics as well as a steroid taper. Multiple chest x-ray examinations and a CT scan of the thorax are within normal limits. 6 minute walk study was grossly abnormal as the patient was only able to ambulate for 122 m prior to oxygen supplementation and then only 188m (normal 400m-700m). His most recent acute on chronic episode was more likely secondary to anemia/GI bleeding and it acute renal insufficiency. I suggest we continue his current medication regimen and attempt to decrease his steroid to oral on Thursday morning. #2 Work-Up: Patient has been chronically immunosuppressed and exposed to multiple water sources we will send off for Legionella urine antigen/sputum at this time. I will also send off for Gram stain and culture/fungal and AFB analysis on the sputum. Serum studies will be sent off for CMV and RSV as well as QuantiFERON Gold. I feel this patient is at low risk for tuberculosis ao isolation is warranted clinically. We'll also perform nocturnal desaturation study in house for evaluation of possible OLESYA. He also complained of chronic signs of sinusitis initiate which could be associated with chronic cough. The patient is stable outpatient workup with pulmonary function tests as well as cardiac stress tests are indicated. #3 Endoscopy: This time I would not perform colonoscopy as patient is at risk for perioperative complications secondary to his respiratory status.
[2016-09-01] VITALS (14 sets, daily range): BP systolic 137–169; BP diastolic 69–96; PULSE 95–116; TEMP 36.7–37.7; O2SAT 85–98
[2016-09-01] MEDS: METHYLPREDNISOLONE IV 40 MG in SYRINGE 0 ML IV SCH (01:37)
[2016-09-01] MEDS: MoRPHine SULFATE 4 MG/ML 1 ML CARP\\VIAL IV PRN ×2 (01:49→14:05)
[2016-09-01] MEDS: ALBUT/IPRATROP 3MG/0.5MG NEB 3 ML VIAL INH SCH ×4 (07:00→19:10)
[2016-09-01] MEDS: PANTOprazole INJ 40 MG in SYRINGE 0 ML IV SCH ×2 (07:18→21:36)
[2016-09-01] MEDS: NYSTATIN SUSP 500,000 U/5 ML UDC PO SCH ×4 (07:18→21:36)
[2016-09-01] MEDS: GABAPENTIN 300 MG CAP PO SCH ×2 (07:18→21:36)
[2016-09-01] MEDS: CYANOCOBALAMIN 1000 MCG/ML VIAL IM SCH (07:19)
[2016-09-01] MEDS: MOMETASONE FUROATE 14 PUFF/1 INHALER INH SCH ×2 (07:20→21:37)
[2016-09-01] MEDS: NYSTATIN POWDER 15GM BTL EXT SCH ×2 (07:21→21:37)
[2016-09-01] MEDS: MENTHOL-ZINC OXIDE 360 APPLN/120 GM TUBE EXT SCH ×2 (07:21→21:37)
--- NOTE | 2016-09-01 08:30 | PROGRESS NOTE ---
DATE: 09/01/2016 SUBJECTIVE: The patient is comfortable this morning. He denies cough or shortness of breath. He had been out ambulating in the room yesterday. The ulcerations on his feet have improved. He did have an oximetry performed which reveals mild oxygen desaturation nocturnally which would necessitate oxygen administration, especially at night. His oxygen sat dropped down to the 70% range at 0100 hours and he spent more than 5% of the time with a saturation below 88%. He has not had any significant symptoms otherwise. He does have a history with some bronchitis and mild reactive airways disorder. He has been treated with steroids as an outpatient with marked improvement in his cough and dyspnea with exertion and wheezing. He developed blisters on his feet, GI bleed and has been evaluated by GI and seen by Dr. Cobb after admission for SIRS and sepsis. He does have thrombocytopenia, probably related to the sepsis. Nonetheless, he states he feels considerably improved today. OBJECTIVE: VITAL SIGNS: Stable. Oxygen saturation is 88-92% on room air, blood pressure 149/88, pulse is 90 and regular, respiratory rate 16. He is afebrile. I\T\Os; 2318 in and 600 out. GENERAL: He weighed 143.6 kilograms. He was 145 kilograms on the 7th. According to nurses' notes, he had a fairly good night last night with no significant problems. He states he is ready to go home. He feels that well. Apparently may be scheduled for colonoscopy soon. HEENT: Unremarkable. I do not see any evidence of thrush. His tongue exam looks good, he does have mild gingivitis. Dentition is fair. No neck vein distention or HJR. HEART: Regular rate and rhythm. No murmurs are heard. LUNGS: Reveal decreased breath sounds though some mild wheezing with expiration in the right mid lung field posterior. ABDOMEN: Soft and flat, nontender. He has no cyanosis, clubbing or edema. LABORATORIES: Chest x-ray on the revealed some cardiomegaly but no pulmonary parenchymal abnormalities were noted. White count 3.07, hemoglobin 9.4, hematocrit 28.4%, platelet count 76,000. BUN is 37 and creatinine 1.6. IMPRESSION: 1. Reactive airways disorder, this is mild chronic obstructive pulmonary disease with exacerbation. 2. Rheumatoid arthritis. 3. Ulceration of the lower extremities. 4. Anemia with gastrointestinal bleed. RECOMMENDATIONS: 1. At this point, I would continue on the Asmanex 1 inhalation b.i.d. 2. Taper the Solu-Medrol 20 mg IV q. 12 hours or he could go on 20 mg of prednisone with a taper. Also would continue on the DuoNeb 4 times a day and then q. 4 hours p.r.n. If he continued to have any coughing or wheezing, we can go with a long-acting beta agonist as well, but I think for right now he seems to be stable. He will follow up with Dr. Petit as an outpatient in 2 weeks.
[2016-09-01 09:01] LABS: HEMATOCRIT 30.6 % (42-52); MEAN CELL VOLUME 94.7 fL (80-100); MEAN CORPUSCULAR HEMOGLOBIN 31.3 pg (25-34); RED BLOOD COUNT 3.23 M/uL (4.7-6.1); WHITE BLOOD COUNT 2.65 K/uL (4.8-10.8)
[2016-09-01 09:11] LABS: MEAN PLATELET VOLUME 10.3 fL (7.4-10.4); PLATELET COUNT 67 K/uL (130-400)
[2016-09-01 09:26] LABS: BUN/CREATININE RATIO 24.6 (10-20); CALCIUM 8.7 mg/dl (8.5-10.1); CREATININE 1.4 mg/dl (0.60-1.40); POTASSIUM 4.5 mmol/L (3.5-5.1)
[2016-09-01 09:29] LABS: BASO % 0.4 %; BASO ABS # 0.01 K/uL (0-0.2); COMPLETE YES; HYPERSEGMENTED POLYS 1+; IG% 1.1 %; LYMPH % 7.2 %; LYMPH ABS # 0.19 K/uL (1.2-3.4); MONO % 1.1 %; NEUT % 90.2 %
--- NOTE | 2016-09-01 10:17 | Hematology/Oncology Prog Note ---
Hematology/Onc Progress Note Date of Service Sep 01, 2016. Diagnoses Thrombocytopenia - probable multi factorial in etiology Medications Medications Administered Medications (Trade) Dose Ordered Sig/Janessa Route Start Time Stop Time Status Last Admin Dose Admin Sodium Chloride (Nss 1000ml) 1,000 ml @ 999 mls/hr Q1H1M STAT IV 08/28/16 08:42 08/28/16 09:42 DC 08/28/16 09:49 999 MLS/HR Albuterol/ Ipratropium (Duoneb) 3 ml NOW STAT INH 08/28/16 09:24 08/28/16 09:25 DC 08/28/16 09:49 3 ML Gabapentin (Neurontin Cap) 300 mg BID PO 08/28/16 21:00 09/27/16 20:59 09/01/16 07:18 300 MG Mometasone Furoate (Asmanex 220MCG Inh) 1 puff BID INH 08/28/16 21:00 09/27/16 20:59 08/31/16 20:51 1 PUFF Heparin Sodium (Porcine) 5000 unit 5,000 unit Q12@0600,1800 SQ 08/28/16 18:00 08/30/16 15:47 DC 08/30/16 06:30 5,000 UNIT Piperacillin Sod/ Tazobactam Sod 4.5 gm/Dextrose 120 ml @ 28.75 mls/ hr Q8@0400,1200,2000 IV 08/28/16 20:00 09/07/16 13:59 Future Hold 08/31/16 05:40 28.75 MLS/HR Methylprednisolone Sodium Succinate/ Syringe (Solu-Medrol IV/ Syringe) 0.64 ml @ 1.5 mls/min Q12H IV 08/28/16 13:00 09/27/16 10:29 09/01/16 01:37 1.5 MLS/MIN Nystatin 1 appln 1 appln BID EXT 08/28/16 21:00 09/27/16 20:59 09/01/16 07:21 1 APPLN Pantoprazole Sodium/Syringe (Protonix Inj/ Syringe) 10 ml @ 5 mls/min DAILY@09,21 IV 08/28/16 13:00 09/27/16 10:29 09/01/16 07:18 5 MLS/MIN Morphine Sulfate (MoRPHine SULFATE INJ) 2 mg Q4H PRN IV 08/28/16 10:30 09/11/16 10:29 08/30/16 11:59 2 MG Morphine Sulfate (MoRPHine SULFATE INJ) 4 mg Q4H PRN IV 08/28/16 10:30 09/11/16 10:29 09/01/16 01:49 4 MG Oxycodone HCl (Roxicodone Immediate Rel Tab) 10 mg Q6 PRN PO 08/28/16 10:30 09/11/16 10:29 08/31/16 21:08 10 MG Albuterol/ Ipratropium 3 ml 3 ml QIDR INH 08/28/16 12:00 09/27/16 11:59 08/31/16 20:03 3 ML Sodium Chloride (Nss 1000ml) 1,000 ml @ 100 mls/hr Q10H IV 08/28/16 10:30 08/29/16 06:29 DC 08/28/16 20:26 100 MLS/HR Nystatin 5 ml 5 ml QID PO 08/28/16 13:00 09/07/16 12:59 09/01/16 07:18 5 ML Piperacillin Sod/ Tazobactam Sod 4.5 gm/Dextrose 120 ml @ 200 mls/hr NOW ONCE IV 08/28/16 13:30 08/28/16 14:05 DC 08/28/16 14:15 200 MLS/HR Sodium Chloride (Nss 1000ml) 1,000 ml @ 75 mls/hr [id number] IV 08/30/16 16:00 08/31/16 10:37 DC 08/31/16 08:50 75 MLS/HR Menthol/Zinc Oxide (Calmoseptine Oint) 1 appln BID EXT 08/31/16 09:00 09/30/16 08:59 09/01/16 07:21 1 APPLN Cyanocobalamin (Vitamin B-12 Inj) 1,000 mcg DAILY IM 09/01/16 09:00 10/01/16 08:59 09/01/16 07:19 1,000 MCG Folic Acid (Folvite Tab) 1 mg QAM PO 09/01/16 09:00 10/01/16 08:59 09/01/16 07:19 1 MG Cyanocobalamin (Vitamin B-12 Inj) 1,000 mcg NOW ONCE IM 08/31/16 12:45 08/31/16 12:46 DC 08/31/16 15:39 1,000 MCG Folic Acid (Folvite Tab) 1 mg NOW ONCE PO 08/31/16 12:45 08/31/16 12:46 DC 08/31/16 15:38 1 MG Subjective He seems fairly stable. He denies any blood in his stool except for bright red blood felt to be perhaps hemorrhoidal however colonoscopy is being planned down the road. His been no other overt bleeding. Review of Systems: Constitutional: Negative for weight loss, night sweats, or fever Eyes: Negative for event change of vision ENT: Negative for epistaxis, nasal discharge, sore throat, or deafness Cardiovascular: Negative for chest pain, palpitations, dizziness, diaphoresis Respiratory: Positive for shortness of breath Gastrointestinal: Negative for diarrhea, hematemesis, melena, nausea, vomiting , or dyspepsia Integumentary (skin): Negative for rash or jaundice discoloration except for the changes associated with the excoriation and blistering on his feet as well as various excoriated areas on his arms and legs Genitourinary: Negative for urinary frequency, hematuria, or dysuria Neurological: Negative for weakness, seizure activity, headache, or dizziness Lymphatic/Hematologic: Negative for petechiae, bleeding or new adenopathy Musculoskeletal: Negative for new joint or back pain Allergic/Immunologic: Negative for unusual rash or pruritis. Vital Signs Vital Signs Past 12 Hours Date Time Temp Pulse Resp B/P Pulse Ox O2 Delivery O2 Flow Rate FiO2 09/01/16 08:48 36.8 108 20 145/69 91 Room Air 09/01/16 04:00 Room Air 09/01/16 03:56 36.7 95 18 149/88 88 Room Air 09/01/16 00:03 36.8 99 18 157/94 89 Room Air 09/01/16 00:00 Room Air Physical Exam Constitutional: vitals are stable. Eyes: Eyes are YOUSIF EOMI without conjuctival erythema or icterus. ENT: External examination was negative for masses. Neck: Negative for masses or palpable thyromegaly Respiratory: Lung sounds were generally clear bilaterally Cardiovascular: Heart was RRR without significant murmur, gallops aoe rubs Gastrointestinal: No palpable hepatic or splenomegaly. The abdomen was soft with normal bowel sounds. Lymphatic system: there was no palpable peripheral lymphadenopathy Musculoskeletal System: The musculoskeletal system seemed concordant with age. Skin: The skin was negative for jaundice. No definite petechiae Neurologic exam: The exam was negative for any focal findings. Deep tendon reflexes were equal and symmetrical. Psychiatric exam: Was essentially negative with normal mood and effect. Extremities: Edematous with both feet currently wrapped Laboratory Last 24 Hours Test 09/01/16 08:21 White Blood Count 2.65 K/uL Red Blood Count 3.23 M/uL Hemoglobin 10.1 g/dL Hematocrit 30.6 % Mean Corpuscular Volume 94.7 fL Mean Corpuscular Hemoglobin 31.3 pg Mean Corpuscular Hemoglobin Concent 33.0 g/dl Platelet Count 67 K/uL Mean Platelet Volume 10.3 fL Neutrophils (%) (Auto) 90.2 % Lymphocytes (%) (Auto) 7.2 % Monocytes (%) (Auto) 1.1 % Eosinophils (%) (Auto) 0.0 % Basophils (%) (Auto) 0.4 % Neutrophils # (Auto) 2.39 K/uL Lymphocytes # (Auto) 0.19 K/uL Monocytes # (Auto) 0.03 K/uL Eosinophils # (Auto) 0.00 K/uL Basophils # (Auto) 0.01 K/uL RDW Standard Deviation 47.9 fL RDW Coefficient of Variation 14.1 % Immature Granulocyte % (Auto) 1.1 % Immature Granulocyte # (Auto) 0.03 K/uL Hypersegmented Polys 1+ Sodium Level 141 mmol/L Potassium Level 4.5 mmol/L Chloride Level 105 mmol/L Carbon Dioxide Level 28 mmol/L Anion Gap 8.0 mmol/L Blood Urea Nitrogen 34 mg/dl Creatinine 1.40 mg/dl Est Creatinine Clear Calc Drug Dose 78.4 ml/min Estimated GFR () 61.5 Estimated GFR (Non- 53.1 BUN/Creatinine Ratio 24.6 Random Glucose 202 mg/dl Calcium Level 8.7 mg/dl Assessment & Plan I suspect the thrombocytopenia is multifactorial as outlined by Dr. Baeza. No transfusion necessary and we will just continue to monitor for now..
--- NOTE | 2016-09-01 10:20 | Medical Consult ---
Consultation Date of Consultation: Sep 01, 2016. Attending Physician: Catarino Adamson MD, PhD Reason for Consultation: Antibiotic management History of Present Illness 61-year-old male with long history of rheumatoid arthritis on chronic steroid therapy, as well as longstanding COPD, who was admitted to the hospital on August 28 because of fever, shortness of breath, cough with yellow sputum, and evidence of worsening infection in his feet. Patient had been on vacation in [place] and was walking in ill fitting shoes, and developed multiple blisters on both feet. Over the next several days he developed progressively worsening redness and swelling involving the dorsum of both feet, with pain rated 3/10 in intensity. He finally came to the emergency department and was found to have evidence of early sepsis. He has been started on Zosyn. Blood cultures have been negative. Has had some GI bleeding, workup in progress. Currently afebrile. Tolerating antibiotic without apparent difficulty. Past Medical/Surgical History Medical Problems: (1) Dehydration Status: Acute (2) GI bleed Status: Acute (3) Hypotension Status: Acute (4) Lower extremity edema Status: Acute (5) SOB (shortness of breath) Status: Acute Medical Problems: (1) Acute exacerbation of chronic bronchitis (2) Kjeng-up-zjwujal kidney injury (3) Atrial fibrillation (4) Reactive airway disease (5) SIRS (systemic inflammatory response syndrome) Family History FH: heart disease FHx: cancer Hypertension Social History Smoking Status: Former Smoker Marital Status: Housing Status: lives with family Occupation Status: employed Allergies Coded Allergies: No Known Allergies (Verified , 08/28/16) Current Inpatient Medications Current Inpatient Medications Medications (Trade) Dose Ordered Sig/Janessa Route Start Time Stop Time Status Last Admin Dose Admin Gabapentin (Neurontin Cap) 300 mg BID PO 08/28/16 21:00 09/27/16 20:59 09/01/16 07:18 300 MG Mometasone Furoate (Asmanex 220MCG Inh) 1 puff BID INH 08/28/16 21:00 09/27/16 20:59 08/31/16 20:51 1 PUFF Acetaminophen (Tylenol Tab) 650 mg Q4H PRN PO 08/28/16 10:30 09/27/16 10:29 Polyethylene (Miralax Powder Packet) 17 gm DAILY PRN PO 08/28/16 10:45 09/27/16 10:44 Ondansetron HCl 4 mg 4 mg Q6H PRN IV 08/28/16 10:30 09/27/16 10:29 Piperacillin Sod/ Tazobactam Sod 4.5 gm/Dextrose 120 ml @ 28.75 mls/ hr Q8@0400,1200,2000 IV 08/28/16 20:00 09/07/16 13:59 Future Hold 08/31/16 05:40 28.75 MLS/HR Methylprednisolone Sodium Succinate/ Syringe (Solu-Medrol IV/ Syringe) 0.64 ml @ 1.5 mls/min Q12H IV 08/28/16 13:00 09/27/16 10:29 09/01/16 01:37 1.5 MLS/MIN Nystatin 1 appln 1 appln BID EXT 08/28/16 21:00 09/27/16 20:59 09/01/16 07:21 1 APPLN Pantoprazole Sodium/Syringe (Protonix Inj/ Syringe) 10 ml @ 5 mls/min DAILY@ IV 08/28/16 13:00 09/27/16 10:29 09/01/16 07:18 5 MLS/MIN Morphine Sulfate (MoRPHine SULFATE INJ) 2 mg Q4H PRN IV 08/28/16 10:30 09/11/16 10:29 08/30/16 11:59 2 MG Morphine Sulfate (MoRPHine SULFATE INJ) 4 mg Q4H PRN IV 08/28/16 10:30 09/11/16 10:29 09/01/16 01:49 4 MG Oxycodone HCl (Roxicodone Immediate Rel Tab) 10 mg Q6 PRN PO 08/28/16 10:30 09/11/16 10:29 08/31/16 21:08 10 MG Albuterol/ Ipratropium (Duoneb) 3 ml QIDR INH 08/28/16 12:00 09/27/16 11:59 08/31/16 20:03 3 ML Albuterol/ Ipratropium (Duoneb) 3 ml Q2H PRN INH 08/28/16 10:30 09/27/16 10:29 Nystatin (Mycostatin Susp) 5 ml QID PO 08/28/16 13:00 09/07/16 12:59 09/01/16 07:18 5 ML Piperacillin Sod/ Tazobactam Sod (Consult) 1 ea UD PRN N/A 08/28/16 11:00 09/27/16 10:59 Future Hold Menthol/Zinc Oxide (Calmoseptine Oint) 1 appln BID EXT 08/31/16 09:00 09/30/16 08:59 09/01/16 07:21 1 APPLN Cyanocobalamin (Vitamin B-12 Inj) 1,000 mcg DAILY IM 09/01/16 09:00 10/01/16 08:59 09/01/16 07:19 1,000 MCG Folic Acid (Folvite Tab) 1 mg QAM PO 09/01/16 09:00 10/01/16 08:59 09/01/16 07:19 1 MG Review of Systems Constitutional: + fever, + weakness Eyes: No problem reported ENT: No problem reported Respiratory: + cough, + shortness of breath, + sputum, No hemoptysis Cardiovascular: No problem reported Abdomen: + GI bleeding, + nausea Musculoskeletal: + joint pain Genitourinary - Male: No problem reported Neurologic: No problem reported Psychiatric: No problem reported Endocrine: No problem reported Hematologic / Lymphatic: No problem reported Integumentary: + new/changing skin lesions Allergic / Immunologic: No problem reported Physical Exam Date Time Temp Pulse Resp B/P Pulse Ox O2 Delivery O2 Flow Rate FiO2 09/01/16 08:48 36.8 108 20 145/69 91 Room Air 09/01/16 04:00 Room Air 09/01/16 03:56 36.7 95 18 149/88 88 Room Air 09/01/16 00:03 36.8 99 18 157/94 89 Room Air 09/01/16 00:00 Room Air 08/31/16 20:16 90 16 92 Room Air 08/31/16 20:05 Room Air 08/31/16 20:00 91 Room Air 08/31/16 19:46 36.8 102 20 142/91 95 Room Air 08/31/16 16:07 82 16 91 Room Air 08/31/16 16:00 91 Room Air 08/31/16 15:31 36.8 97 22 148/90 91 Room Air 08/31/16 12:00 Room Air 08/31/16 11:55 91 16 91 Room Air 08/31/16 11:18 36.9 95 18 126/83 93 Room Air General Appearance: WD/WN, no apparent distress, + obese Head: normocephalic, atraumatic Eyes: normal inspection, EOMI, sclerae normal ENT: normal ENT inspection, hearing grossly normal, pharynx normal Neck: supple, no adenopathy, thyroid normal, trachea midline Respiratory/Chest: chest non-tender, no respiratory distress, + rales Cardiovascular: regular rate, rhythm, no gallop, no murmur Abdomen/GI: normal bowel sounds, non tender, soft, no organomegaly Back: normal inspection, no CVA tenderness Extremities/Musculoskelatal: no calf tenderness, + inflammation, + swelling Neurologic/Psych: alert, oriented x 3 Skin: normal color, no rash, + pertinent finding ( Open blisters of both feet with surrounding erythema, some serous drainage) Lymphatic: no adenopathy Laboratory Results RUN DATE: 08/30/16 [facility] LAB PAGE 1 RUN TIME: 722 Specimen Inquiry PATIENT: DAVONTE MARTIN LOC: [facility] U # : [id number] AGE/SX: 61/M ROOM: E215 REG : 08/28/[address]: Ander Kaiser M : 1955 BED: 1 DIS : STATUS: ADM IN TLOC: SPEC #: [id number] ISSAC: 08/28/16 STATUS: RES REQ #: [id number] RECD: 08/28/16 [facility] DR: Trace Garcia M.D. 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 Last 24 Hours Test 09/01/16 08:21 White Blood Count 2.65 K/uL Red Blood Count 3.23 M/uL Hemoglobin 10.1 g/dL Hematocrit 30.6 % Mean Corpuscular Volume 94.7 fL Mean Corpuscular Hemoglobin 31.3 pg Mean Corpuscular Hemoglobin Concent 33.0 g/dl Platelet Count 67 K/uL Mean Platelet Volume 10.3 fL Neutrophils (%) (Auto) 90.2 % Lymphocytes (%) (Auto) 7.2 % Monocytes (%) (Auto) 1.1 % Eosinophils (%) (Auto) 0.0 % Basophils (%) (Auto) 0.4 % Neutrophils # (Auto) 2.39 K/uL Lymphocytes # (Auto) 0.19 K/uL Monocytes # (Auto) 0.03 K/uL Eosinophils # (Auto) 0.00 K/uL Basophils # (Auto) 0.01 K/uL RDW Standard Deviation 47.9 fL RDW Coefficient of Variation 14.1 % Immature Granulocyte % (Auto) 1.1 % Immature Granulocyte # (Auto) 0.03 K/uL Hypersegmented Polys 1+ Sodium Level 141 mmol/L Potassium Level 4.5 mmol/L Chloride Level 105 mmol/L Carbon Dioxide Level 28 mmol/L Anion Gap 8.0 mmol/L Blood Urea Nitrogen 34 mg/dl Creatinine 1.40 mg/dl Est Creatinine Clear Calc Drug Dose 78.4 ml/min Estimated GFR () 61.5 Estimated GFR (Non- 53.1 BUN/Creatinine Ratio 24.6 Random Glucose 202 mg/dl Calcium Level 8.7 mg/dl CHEST ONE VIEW PORTABLE CLINICAL HISTORY: CHEST PAIN dyspnea COMPARISON STUDY: 04/25/2016 FINDINGS: Mild stable cardia megaly. Lungs are clear. Diaphragms smooth. Costophrenic angles are sharp. IMPRESSION: Mild stable cardiomegaly. Electronically signed by: Elmer Whitfield M.D. 08/28/2016 9:11 AM Dictated Date/Time: 08/28/2016 9:10 AM The status Assessment & Plan Clinical picture of early sepsis, most likely from bilateral foot cellulitis. Stpah and Strep most likely pathogens. Unclear whether thrombocytopenia from meds or associated with sepsis. Will start ertapenem with length of IV Rx to be determined by clinical response. Will follow.
--- NOTE | 2016-09-01 11:04 | Progress Note ---
Subjective Date of Service: Sep 01, 2016. Subjective Pt evaluation today including: conversation w/ patient, physical exam, chart review, lab review, review of studies, conversation w/ home planning consultant salesperson, review of inpatient medication list Report feeling better in want to go home, actually in the bilateral foot the wound and drainage is still going on, however he reported is getting much better Problem List Medical Problems: (1) Dehydration Status: Acute (2) GI bleed Status: Acute (3) Hypotension Status: Acute (4) Lower extremity edema Status: Acute (5) SOB (shortness of breath) Status: Acute Review of Systems Constitutional: No chills, No fatigue, No fever, No problem reported, No sweats , No weakness, No weight loss Eyes: No diplopia, No discharge, No eye pain, No redness, No worsening of vision ENT: No dental problems, No hearing loss, No nasal symptoms, No sore throat, No tinnitus, No trouble swallowing, No unusual epistaxis Respiratory: No cough, No dyspnea at rest, No dyspnea on exertion, No hemoptysis, No shortness of breath, No sputum, No wheezing Cardiac: No PND, No chest pain, No claudication, No edema, No orthopnea, No palpitations Abdomen: No constipation, No diarrhea, No nausea, No pain, No vomiting Musculoskeletal: No calf pain, No joint pain, No muscle pain, No swelling Male : No dysuria, No hematuria, No incontinence, No nocturia more than once/ night, No slowing stream, No urinary frequency Neurologic: No balance problems, No memory loss, No numbness/tingling, No paralysis, No vertigo, No weakness Psychiatric: No anhedonism, No anxiety, No depression symptoms, No insomnia, No substance abuse Heme: No abnormal bleeding/bruising, No clotting problems, No night sweats, No swollen lymph nodes Endo: No excessive thirst, No excessive urination, No fatigue Skin: + see HPI, No bleeding, No color change, No itch, No new/changing skin lesions Objective Vital Signs Date Time Temp Pulse Resp B/P Pulse Ox O2 Delivery O2 Flow Rate FiO2 09/01/16 10:36 103 16 92 Room Air 09/01/16 08:48 36.8 108 20 145/69 91 Room Air 09/01/16 04:00 Room Air 09/01/16 03:56 36.7 95 18 149/88 88 Room Air 09/01/16 00:03 36.8 99 18 157/94 89 Room Air 09/01/16 00:00 Room Air 08/31/16 20:16 90 16 92 Room Air 08/31/16 20:05 Room Air 08/31/16 20:00 91 Room Air 08/31/16 19:46 36.8 102 20 142/91 95 Room Air 08/31/16 16:07 82 16 91 Room Air 08/31/16 16:00 91 Room Air 08/31/16 15:31 36.8 97 22 148/90 91 Room Air 08/31/16 12:00 Room Air 08/31/16 11:55 91 16 91 Room Air 08/31/16 11:18 36.9 95 18 126/83 93 Room Air Physical Exam General Appearance: WD/WN, no apparent distress, + obese Eyes: normal inspection, PERRL, EOMI, sclerae normal ENT: normal ENT inspection, hearing grossly normal, pharynx normal Neck: supple, no adenopathy, thyroid normal, no JVD, no carotid bruits, trachea midline Respiratory/Chest: chest non-tender, normal breath sounds, no respiratory distress, no accessory muscle use, + decreased breath sounds Cardiovascular: regular rate, rhythm, no edema, no gallop, no JVD, no murmur Abdomen: normal bowel sounds, non tender, soft, no organomegaly, no pulsatile mass Extremities: normal range of motion, non-tender, normal inspection, no pedal edema, no calf tenderness, normal capillary refill, pelvis stable Neurologic/Psychiatric: 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, no motor/sensory deficits, alert, normal mood/affect, oriented x 3 Skin: normal color, warm/dry, no rash, + pertinent finding (gurpreet anterior foot has open wounds with drainage and erythema, has expension to the base of the toe) Lymphatic: no adenopathy Laboratory Results Last 24 Hours Test 09/01/16 08:21 09/01/16 10:18 White Blood Count 2.65 K/uL Red Blood Count 3.23 M/uL Hemoglobin 10.1 g/dL Hematocrit 30.6 % Mean Corpuscular Volume 94.7 fL Mean Corpuscular Hemoglobin 31.3 pg Mean Corpuscular Hemoglobin Concent 33.0 g/dl Platelet Count 67 K/uL Mean Platelet Volume 10.3 fL Neutrophils (%) (Auto) 90.2 % Lymphocytes (%) (Auto) 7.2 % Monocytes (%) (Auto) 1.1 % Eosinophils (%) (Auto) 0.0 % Basophils (%) (Auto) 0.4 % Neutrophils # (Auto) 2.39 K/uL Lymphocytes # (Auto) 0.19 K/uL Monocytes # (Auto) 0.03 K/uL Eosinophils # (Auto) 0.00 K/uL Basophils # (Auto) 0.01 K/uL RDW Standard Deviation 47.9 fL RDW Coefficient of Variation 14.1 % Immature Granulocyte % (Auto) 1.1 % Immature Granulocyte # (Auto) 0.03 K/uL Hypersegmented Polys 1+ Sodium Level 141 mmol/L Potassium Level 4.5 mmol/L Chloride Level 105 mmol/L Carbon Dioxide Level 28 mmol/L Anion Gap 8.0 mmol/L Blood Urea Nitrogen 34 mg/dl Creatinine 1.40 mg/dl Est Creatinine Clear Calc Drug Dose 78.4 ml/min Estimated GFR () 61.5 Estimated GFR (Non- 53.1 BUN/Creatinine Ratio 24.6 Random Glucose 202 mg/dl Calcium Level 8.7 mg/dl Assessment and Plan 61-year-old white female admitted on 08/28/2016 because of Acute bronchitis with SIRS. Acute bronchitis with SIRS, Leg ulcers: Stable and improving Has been on Zosyn since admission for 3 days, hold Zosyn secondary to thrombocytopenia, Infectious disease Dr. Zavala for the food infection Pulmonology saw the patient , continue steroids, taper to oral prednisone , has taper off oxygen, and he knew nebs. Blood cultures so far negative. Normal lactic acid, however on Poc lactic acid was elevated at admission. Patient need to follow up with Dr. Petit as an outpatient in 2 weeks. GI Bleed/Hx of hemorrhoids, patient declined to have colonoscopy, GI on the case , we'll hold colonoscopy if patient really don't like to Hemoglobin today is 10.1 from 9.2, stable no blood BM reported, except little after bright blood per rectum. possible colonoscopy if medical stable on Thursday, but the patient possible don't want to do it, I did discuss about the risks of delayed or missed diagnosis of possible cancer disease which causes rectal bleeding, he is willing to take on the risks by self Acute on chronic kidney injury Improving a history of stage III chronic kidney disease. Avoid nephrotoxic agents such as NSAIDs. We will repeat BMP in a.m. Pancytopenia and Thrombocytopenia Acute drop in platelets from 227 to 103 and 76, today's continue drop Per Hem/Onc: low platelet count is multifactorial, with components of sepsis/ inflammation, medications (Zosyn), and his GI bleeding. He also appears to be folate and B12 deficient, explaining mild leukopenia with hypersegmented polys. Subcutaneous vitamin B12 and oral folic acid. The folic acid deficiency may be related to his methotrexate. checking intrinsic factor antibodies to rule out pernicious anemia in this patient with a history of autoimmunity. Hold Zosyn. 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 I believe patient is competent to make decision by self. Continued [facility] stay due to: multiple IV medications needed Discharge planning: home
[2016-09-01] MEDS: ERTAPENEM IV 1 GM in SODIUM CHLOR 0.9% AD-VAN 50ML 50 ML IV SCH (12:11)
[2016-09-01] MEDS ORDERED: NURSING VERBAL MED ORDER ONE ×2 (14:30→18:30)
[2016-09-01] MEDS ORDERED: BENZONATATE 100MG CAP PO PRN (14:45)
--- NOTE | 2016-09-01 16:24 | DIAGNOSTIC IMAGING REPORT ---
SINUS CT CT DOSE: 559.89 mGy.cm HISTORY: Dyspnea chronic sinusitis with associated cough TECHNIQUE: Multiaxial CT images of the paranasal sinuses were performed and reformatted in the coronal plane without the use of contrast. COMPARISON: None. FINDINGS: Minimal to mild mucosal thickening of all major sinuses. Minimal hyperplastic changes the nasal turbinates. Soft tissue narrowing left ostiomeatal unit. Narrowing of the right ostiomeatal unit. The mastoid air cells are clear. The orbits are unremarkable. IMPRESSION: Mild mucosal thickening of all major sinuses. Minimal hyperplastic changes the nasal turbinates. Electronically signed by: Elmer Whitfield M.D. 09/01/2016 4:21 PM Dictated Date/Time: 09/01/2016 4:20 PM
--- NOTE | 2016-09-01 16:36 | PROGRESS NOTE ---
DATE: 09/01/2016 HISTORY OF PRESENT ILLNESS: The patient continues to have shortness of breath at rest. The patient was consulted to GI for rectal bleeding which felt may be from hemorrhoids since he is not wiping as hard over the last 2 days. He has had no visible rectal bleeding. At this point, the patient needs to have his heart and lungs optimized because right now he is not really a great candidate for sedation given his size and cardiopulmonary decline. The rectal bleeding is not active and his blood counts remained stable, I think this is something we can pursue as an outpatient once his cardiopulmonary status improves. IMPRESSION AND PLAN: Rectal bleeding, probably hemorrhoidal, but he should have a colonoscopy as an outpatient once his cardiopulmonary status is optimized.
[2016-09-01] MEDS ORDERED: PHARMACY GLYCEMIC MGMT CONSULT PRN (17:04)
[2016-09-01] MEDS: INSULIN ASPART 100 UNITS/ML 3 ML PEN SC SCH ×2 (18:00→21:51)
--- NOTE | 2016-09-01 18:11 | Pharmacy Progress Note ---
Glycemic Control Intl Consult Date of Service Sep 01, 2016. Scope Glycemic Pharmacist consulted by on 09/01/16 for glycemic control and to write orders per [facility] inpatient glycemic control protocol Objective Weight (Kilograms): 143.600 Accuchecks BSG (last 24hrs): Test 09/01/16 08:21 Random Glucose 202 mg/dl (70-99) Laboratory Data (last 24hrs) Test 09/01/16 08:21 Anion Gap 8.0 mmol/L BUN/Creatinine Ratio 24.6 Blood Urea Nitrogen 34 mg/dl Creatinine 1.40 mg/dl Potassium Level 4.5 mmol/L Sodium Level 141 mmol/L White Blood Count 2.65 K/uL Red Blood Count 3.23 M/uL Hemoglobin 10.1 g/dL Hematocrit 30.6 % Mean Corpuscular Volume 94.7 fL Mean Corpuscular Hemoglobin 31.3 pg Mean Corpuscular Hemoglobin Concent 33.0 g/dl Platelet Count 67 K/uL Mean Platelet Volume 10.3 fL Neutrophils (%) (Auto) 90.2 % Lymphocytes (%) (Auto) 7.2 % Monocytes (%) (Auto) 1.1 % Eosinophils (%) (Auto) 0.0 % Basophils (%) (Auto) 0.4 % Neutrophils # (Auto) 2.39 K/uL Lymphocytes # (Auto) 0.19 K/uL Monocytes # (Auto) 0.03 K/uL Eosinophils # (Auto) 0.00 K/uL Basophils # (Auto) 0.01 K/uL HbA1c Test 08/29/16 06:39 Hemoglobin A1c 7.5 % (4.5-5.6) H Recent Pertinent Medications Outpatient Anti-diabetic Regimen: * None * A1c = 7.5 % on 08/29/16 The patient is currently receiving: * None Risk Factors for Insulin Resistance: * Steroids: Prednisone 40mg BIDM * Infection: Bronchitis, On Invanz * Diet: AHA/DM2 Assessment & Plan ASSESSMENT: * ADA & AACE recommend a goal blood sugar range 140-180 mg/dl for the majority of critically ill & non-critically ill patients. However, more stringent targets may be selected in individual cases. * 61 yo male admitted with bronchitis. * Pt with steroid induced hyperglycemia. Steroids being tapered from solu- medrol to prednisone. Pt is maintained on Prednisone as an outpatient. He is not on a DM2 regimen as an outpatient, however A1c indicates diagnosis of DM2. EAG = 169 mg/dl. * Will initiate SQ insulin regimen with Novolog prandial coverage to resolve steroid induced hyperglycemia. * Recommend initiation of DM2 regimen as an outpatient. Regimen will be dictated by recovery of kidney function. PLAN FOR INPATIENT GLYCEMIC CONTROL: * No basal insulin * Novolog ACHS * Start correction factor of 40 mg/dl/unit * Start carb ratio of 1 unit per 15 grams CHO consumed * Set goal range to Low 120 mg/dL - High 160 mg/dL * Please note that the plan above was derived based on current level of insulin resistance and hospital stress. These recommendations are appropriate for inpatient admission only. Plan of care upon discharge will need to be reassessed to avoid potential outpatient hypo/hyperglycemia. Thank you.
[2016-09-01] MEDS ORDERED: GLUCOSE 40% GEL 15 GM TUBE PO PRN (18:15)
[2016-09-01] MEDS ORDERED: DEXTROSE 50% 50 ML SYR IV PRN (18:15)
[2016-09-01] MEDS ORDERED: GLUCAGON FOR INJ 1 MG VIAL SQ PRN (18:15)
[2016-09-01] MEDS ORDERED: GLUCOSE 10 TABS/TUBE PO PRN (18:15)
[2016-09-01] MEDS ORDERED: OPTIRAY 320 IV PRN (18:30)
--- NOTE | 2016-09-01 19:30 | DIAGNOSTIC IMAGING REPORT ---
CHEST CT WITH CONTRAST CT DOSE: 1494.11 mGy.cm HISTORY: Dyspnea SOB, cough, tacky cardia TECHNIQUE: Multiaxial CT images of the chest were performed following the intravenous administration of contrast. COMPARISON: 06/06/2016 FINDINGS: Substernal thyroid unchanged. No significant mediastinal or hilar adenopathy. Potential developing pleural-based groundglass nodule measuring 1.4 cm posterior aspect right midlung. Possible developing nodule left upper lobe transaxial image 29 measuring 7 mm. Unchanging pleural thickening posterior aspect right lower lobe. 3 mm nodular density right middle lobe unchanged. Developing bibasilar interstitial infiltrative changes with underlying nodular component. Limited evaluation the upper abdomen is unremarkable. IMPRESSION: 1. Developing bibasilar parenchymal infiltrative change with underlying nodular components. 2. Scattered additional and are slightly progressive nodular changes posterior aspect right midlung as well as left midlung. 3. Although possibly inflammatory, this should be followed closely and/or consideration of bronchoscopy to exclude any possibility of developing neoplastic process. 4. Unchanging right substernal thyroid. Electronically signed by: Elmer Whitfield M.D. 09/01/2016 7:28 PM Dictated Date/Time: 09/01/2016 7:24 PM
[2016-09-01] MEDS: SODIUM CHLORIDE 0.9% 1000ML 1,000 ML IV SCH (19:31)
[2016-09-01] MEDS: OXYCODONE HCL IR 5 MG TAB (IMMEDIATE RELEASE) PO PRN (21:43)
[2016-09-02] VITALS (14 sets, daily range): BP systolic 138–174; BP diastolic 85–99; PULSE 85–123; TEMP 36.5–37; O2SAT 90–97
[2016-09-02] MEDS: SODIUM CHLORIDE 0.9% 1000ML 1,000 ML IV SCH (06:05)
[2016-09-02 06:18] LABS: HEMATOCRIT 28.4 % (42-52); MEAN CELL VOLUME 94.7 fL (80-100); MEAN CORPUSCULAR HGB CONC 32.7 g/dl (32-36); WHITE BLOOD COUNT 1.82 K/uL (4.8-10.8)
[2016-09-02 06:39] LABS: MEAN PLATELET VOLUME 10.6 fL (7.4-10.4); PLATELET COUNT 44 K/uL (130-400)
[2016-09-02 06:53] LABS: BUN/CREATININE RATIO 20.3 (10-20); CALCIUM 8.5 mg/dl (8.5-10.1); CREATININE 1.3 mg/dl (0.60-1.40); POTASSIUM 4.3 mmol/L (3.5-5.1)
[2016-09-02] MEDS: ALBUT/IPRATROP 3MG/0.5MG NEB 3 ML VIAL INH SCH ×4 (07:02→19:47)
[2016-09-02] MEDS: PANTOprazole INJ 40 MG in SYRINGE 0 ML IV SCH ×2 (08:13→21:01)
[2016-09-02] MEDS: NYSTATIN SUSP 500,000 U/5 ML UDC PO SCH ×4 (08:14→21:01)
[2016-09-02] MEDS: GABAPENTIN 300 MG CAP PO SCH ×2 (08:14→21:02)
[2016-09-02] MEDS: CYANOCOBALAMIN 1000 MCG/ML VIAL IM SCH (08:15)
[2016-09-02] MEDS: NYSTATIN POWDER 15GM BTL EXT SCH ×2 (08:16→21:00)
[2016-09-02] MEDS: MENTHOL-ZINC OXIDE 360 APPLN/120 GM TUBE EXT SCH ×2 (08:16→21:00)
[2016-09-02] MEDS: MOMETASONE FUROATE 14 PUFF/1 INHALER INH SCH ×2 (08:16→21:00)
[2016-09-02] MEDS: OXYCODONE HCL IR 5 MG TAB (IMMEDIATE RELEASE) PO PRN ×2 (09:08→23:47)
[2016-09-02] MEDS: INSULIN ASPART 100 UNITS/ML 3 ML PEN SC SCH ×4 (09:43→21:00)
--- NOTE | 2016-09-02 11:01 | Progress Note ---
Subjective Date of Service: Sep 02, 2016. Subjective Pt evaluation today including: conversation w/ patient, chart review, lab review, review of studies, conversation w/ client consultant, review of inpatient medication list Voiding: no voiding problems Again he shows very anxious and upset about the care plan, he wants to go home , Yesterday there was desat, osat at 80%, he continue need nasal cannula oxygen 2 L/m He reported the bilateral foot swelling drainage significant better today after start new IV antibiotic Was found has tachycardia yesterday chest CT was done has no PE Problem List Medical Problems: (1) Dehydration Status: Acute (2) GI bleed Status: Acute (3) Hypotension Status: Acute (4) Lower extremity edema Status: Acute (5) SOB (shortness of breath) Status: Acute Review of Systems Constitutional: No chills, No fatigue, No fever, No problem reported, No sweats , No weakness, No weight loss Eyes: No diplopia, No discharge, No eye pain, No redness, No worsening of vision ENT: No dental problems, No hearing loss, No nasal symptoms, No sore throat, No tinnitus, No trouble swallowing, No unusual epistaxis Respiratory: + shortness of breath, No cough, No dyspnea at rest, No dyspnea on exertion, No hemoptysis, No sputum, No wheezing Cardiac: No PND, No chest pain, No claudication, No edema, No orthopnea, No palpitations Abdomen: No constipation, No diarrhea, No nausea, No pain, No vomiting Musculoskeletal: No calf pain, No joint pain, No muscle pain, No swelling Male : No dysuria, No hematuria, No incontinence, No nocturia more than once/ night, No slowing stream, No urinary frequency Neurologic: No balance problems, No memory loss, No numbness/tingling, No paralysis, No vertigo, No weakness Psychiatric: No anhedonism, No anxiety, No depression symptoms, No insomnia, No substance abuse Heme: No abnormal bleeding/bruising, No clotting problems, No night sweats, No swollen lymph nodes Endo: No excessive thirst, No excessive urination, No fatigue Skin: + see HPI, No color change, No new/changing skin lesions Objective Vital Signs Date Time Temp Pulse Resp B/P Pulse Ox O2 Delivery O2 Flow Rate FiO2 09/02/16 09:15 138/88 91 Room Air 09/02/16 08:31 36.5 114 22 174/99 93 Nasal Cannula 2.0 09/02/16 08:00 94 Nasal Cannula 2.0 09/02/16 07:04 102 16 97 Nasal Cannula 4.0 09/02/16 04:00 Room Air 09/02/16 04:00 36.6 85 22 142/86 97 Nasal Cannula 4.0 09/02/16 00:00 Room Air 09/01/16 23:51 36.7 98 20 138/88 98 Nasal Cannula 4.0 09/01/16 22:03 96 Nasal Cannula 4.0 09/01/16 22:02 85 Room Air 09/01/16 20:09 37.7 103 20 137/90 91 Room Air 09/01/16 17:29 111 154/96 09/01/16 16:55 36.8 116 20 169/69 91 Room Air 09/01/16 16:00 91 Room Air 09/01/16 15:05 95 16 94 Room Air 09/01/16 12:00 Room Air 09/01/16 11:10 95 16 92 Room Air 09/01/16 10:46 36.7 106 20 150/93 88 Room Air 09/01/16 10:36 103 16 92 Room Air Physical Exam General Appearance: WD/WN, no apparent distress, + obese Eyes: normal inspection, PERRL, EOMI, sclerae normal ENT: normal ENT inspection, hearing grossly normal, pharynx normal Neck: supple, no adenopathy, thyroid normal, no JVD, no carotid bruits, trachea midline Respiratory/Chest: chest non-tender, normal breath sounds, no respiratory distress, no accessory muscle use, + decreased breath sounds Cardiovascular: regular rate, rhythm, no edema, no gallop, no JVD, no murmur Abdomen: normal bowel sounds, non tender, soft, no organomegaly, no pulsatile mass Extremities: normal range of motion, non-tender, normal inspection, no pedal edema, no calf tenderness, normal capillary refill, pelvis stable 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, no motor/sensory deficits, alert, normal mood/affect, oriented x 3 Skin: normal color, warm/dry, + pertinent finding (gurpreet anterior feet in dress , less oozing ) Lymphatic: no adenopathy Laboratory Results Last 24 Hours Test 09/01/16 11:22 09/01/16 21:02 09/02/16 05:50 09/02/16 06:40 Fibrinogen 476 mg/dl Heparin-PF4 Antibody Screen NEG Bedside Glucose 229 mg/dl 127 mg/dl White Blood Count 1.82 K/uL Red Blood Count 3.00 M/uL Hemoglobin 9.3 g/dL Hematocrit 28.4 % Mean Corpuscular Volume 94.7 fL Mean Corpuscular Hemoglobin 31.0 pg Mean Corpuscular Hemoglobin Concent 32.7 g/dl RDW Standard Deviation 48.4 fL RDW Coefficient of Variation 14.3 % Platelet Count 44 K/uL Mean Platelet Volume 10.6 fL Sodium Level 141 mmol/L Potassium Level 4.3 mmol/L Chloride Level 106 mmol/L Carbon Dioxide Level 30 mmol/L Anion Gap 5.0 mmol/L Blood Urea Nitrogen 26 mg/dl Creatinine 1.30 mg/dl Est Creatinine Clear Calc Drug Dose 84.4 ml/min Estimated GFR () 67.3 Estimated GFR (Non- 58.1 BUN/Creatinine Ratio 20.3 Random Glucose 137 mg/dl Calcium Level 8.5 mg/dl Assessment and Plan 61-year-old white female admitted on 08/28/2016 because of Acute bronchitis with SIRS. gurpreet lower lobs PNA and Acute bronchitis with SIRS, Leg ulcers: Stable gurpreet lower lobe pna is supported by Developing bibasilar parenchymal infiltrative CT studies Has been on Zosyn since admission for 3 days, Zosyn ME'ed secondary to thrombocytopenia, Infectious disease Dr. Zavala for the food infection Pulmonology saw the patient , continue steroids, taper to oral prednisone , need nabs Patient possible has community-acquired pneumonia currently is on Invanz, will add azithromycin for better coverage Blood cultures so far negative. Normal lactic acid, however on Poc lactic acid was elevated at admission. Patient need to follow up with Dr. Petit as an outpatient in 2 weeks. GI Bleed/Hx of hemorrhoids, patient declined to have colonoscopy, GI on the case , we'll hold colonoscopy if patient really don't like to Hemoglobin stable no blood BM reported, except little after bright blood per rectum. initially possible colonoscopy if medical stable on Thursday, per recommendation from GI ; probably hemorrhoidal, but he should have a colonoscopy as an outpatient once his cardiopulmonary status is optimized. Acute on chronic kidney injury cr 1.3 from 1.4 Improving a history of stage III chronic kidney disease. Avoid nephrotoxic agents such as NSAIDs. Pancytopenia; Continue getting worse, today's white count is 1.8 from 2.6, hemoglobin is 9.3 from 10.1, PLT 44 from 67 Per Hem/Onc: low platelet count is multifactorial, with components of sepsis/ inflammation, medications (Zosyn), and his GI bleeding. He also appears to be folate and B12 deficient, Subcutaneous vitamin B12 and oral folic acid. The folic acid deficiency may be related to his methotrexate. HIT is in the differential diagnosis, which is throughout because anti PF4 is negative I will ask oncology to continue follow-up today possible sinusitis: start Flonase Patient continue to be upset about care he feels his good enough to go home With present of registered nurse, I sitting down, spent time talked to him, explained everything to him and told time that medical is not stable to be released Such as bilateral foot wound on IV antibiotics 1st day, just getting better, worsening pancytopenia, need to have assessment of home O2 need how ever, what I'm doing today is will find out with infectious disease about what oral antibiotic will be good for patient to go home I will taper off oxygen and to see if patient need to have home oxygen are not , etc, I told patient that against medical advice may cause permanent organ damage or even , patient is awake, alert and orientated x3, 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 I believe patient is competent to make decision by self. Continued [facility] stay due to: multiple IV medications needed Discharge planning: home
[2016-09-02] MEDS ORDERED: AZITHROMYCIN IV 500 MG in DEXTROSE 5% 250ML 250 ML IV ONE (11:30)
[2016-09-02] MEDS: ERTAPENEM IV 1 GM in SODIUM CHLOR 0.9% AD-VAN 50ML 50 ML IV SCH (11:34)
--- NOTE | 2016-09-02 11:57 | PROGRESS NOTE ---
DATE: 09/02/2016 DATE: 09/02/2016. PROBLEM LIST: Includes: 1. Reactive airways disorder with mild chronic obstructive pulmonary disease with exacerbation. 2. Rheumatoid arthritis. 3. Ulceration lower extremities. 4. Anemia with gastrointestinal bleed. SUBJECTIVE: The patient reports that he is feeling well today. He actually would like to go home today. He states that from a pulmonary standpoint his breathing is much better than when he came in. He states he is feeling pretty close to being back to his normal. He does have some cough but it is improved, he will get some mucus up that is mostly clear, just slightly yellow at times. He is also clearing some mucus from his nose. He states that does have a little bit of blood tingeing but that is normal for him. He is not having any wheezing. He does feel short of breath at rest. He states he will get a little bit with exertion but again it is improved from previous. He denies any chest pain at this time. He is reiterating some left shoulder pain. States that he was to have the shoulder replaced but due to some medical conditions did not have it done. He states that the pain will start at his left shoulder and go down to his index finger and thumb. He has no actual chest pain. No cardiac symptoms. No palpitations. He denies any other concerns with his breathing. May have a little bit of wheeze off and on but nothing significant. He denies any other symptoms. No sore throat. No difficulty swallowing although he does have a history of possible aspiration as he has had a video swallow which showed some slight penetration in the past. No abdominal pain, no nausea or vomiting, no indigestion or heartburn or difficulty with his bowels. No difficulty voiding. No swelling in his extremities. He does have his feet wrapped from blisters on his feet. Denies any other concerns or problems. OBJECTIVE: GENERAL: The patient is a 61-year-old obese male in no acute distress. He is alert and oriented x3. Mood is good. Affect is good. VITAL SIGNS: Temp 36.5, pulse 114, blood pressure 138/80, pulse ox is 93-94% on room air. HEAD, EYES, EARS, NOSE, AND THROAT: Normocephalic, atraumatic. Pupils equal, round and react to light and accommodation. Extraocular movements are intact. [place] moist gingival and buccal mucosa. NECK: Is short, thick. There is no mass. No adenopathy. No bruit. CHEST: The patient has some faint wheezing bilaterally. This is with exhalation mostly in the upper lung aly. No rale or rhonchi noted. CARDIOVASCULAR: Regular rate and rhythm. No murmurs, gallops or rubs. ABDOMEN: Bowel sounds are present. Abdomen soft, nontender. No guarding, rigidity or organomegaly. EXTREMITIES: Feet are wrapped. Trace edema bilaterally. No tenderness. IMPRESSION: CAT scan of the sinuses shows mild mucosal thickening of all major cyanosis. CT of the chest shows some questions areas of bibasilar almost infiltrative changes. Dr. Petit was nearby when I was examining the images and the question is that pattern is consistent possibly with continued aspiration. The patient currently is on ertapenem and steroids at this point. Dr. Petit does not eel that we can get down low enough first off with bronchoscopy to this area, also doubts anything would grow out since the patient is on ertapenem at this point. Since the patient is clinically improving from a pulmonary standpoint, would just watch and continue to monitor. From a pulmonary standpoint, would recommend to continue steroids and repeat imaging. Will continue to follow.
--- NOTE | 2016-09-02 12:07 | CONSULTATION REPORT ---
DATE OF CONSULTATION: 08/29/2016 DATE: 08/29/2016. CHIEF COMPLAINT: Blister formation both feet. HISTORY OF PRESENT ILLNESS: The patient was recently admitted yesterday to [facility] for the treatment and evaluation of shortness of breath. The patient states that he was recently vacationing in [place] with his family and not taking his Lasix as routinely ordered. The patient states he developed swelling in both feet and was wearing shoes at the time. The patient states he developed a blister formation on the top of both his feet following this incident. The patient denies any prior history of similar occurrence. The patient currently complains of significant pain in these sites, especially with any touch or movement. The patient denies any fever, chills or night sweats. The patient denies any nausea, vomiting. The patient denies any other problems systemic complaints. PAST MEDICAL HISTORY: Positive for COPD, hypertension, rheumatoid arthritis. PAST SURGICAL HISTORY: Positive for herniorrhaphy. MEDICATIONS: Noted in nurse notes and were reviewed. ALLERGIES: None. REVIEW OF SYSTEMS: Ten systems were also reviewed and found to be unremarkable except for those noted in the chief complaint and history of present illness. PHYSICAL EXAMINATION: GENERAL: The patient is currently sitting in a hospital chair in no acute distress, alert and cooperative throughout the examination. VITAL SIGNS: Were also reviewed and found to be unremarkable. The patient is afebrile. HEAD, EYES, EARS, NOSE, AND THROAT: Pupils equal and reactive to light. Sclerae clear. NECK: Supple. CHEST: Heart and lungs clear to auscultation. EXTREMITIES: Reveals the presence of blister formations on the dorsal aspect of both feet, left measuring 12 x 8 x 0.1 and the right measuring 9 x 11 x 0.1. There is some exfoliated skin products as well as some minimal central slough. There is some minimal periwound erythema and edema of the foot noted. No active drainage or odor present. ASSESSMENT: Stage II pressure ulcerations, bilateral feet. PLAN: The exfoliated skin products were removed in part with scissors and forceps. The patient was quite painful even after the application of topical Xylocaine 4%. Further debridement at this time was held. The sites were dressed with Xeroform and gauze dressings to be changed daily. The patient will follow appropriate offloading recommendations. This area will be monitored with probable review in the next 5-7 days. This represented a nonexcisional debridement of approximately 60 square cm.
--- NOTE | 2016-09-02 14:17 | Pharmacy Progress Note ---
Glycemic: Assessment & Plan Date of Service Sep 02, 2016. Assessment & Plan The patient is currently receiving 10-15 units of insulin per day. BSGs ranging 123-137 mg/dl today. * Basal insulin: None * Correctional Insulin: Novolog Correction per scale ACHS Goal Range: Low 120 mg/dL - High 160 mg/dL Correction Factor: 40 mg/dL/unit * Prandial insulin: Per carb ratio of 1 unit per 15 grams CHO consumed BSGs continue to improve, no changes needed to inpatient regimen at this time. Pharmacy will continue to monitor patient daily and write orders per [facility] inpatient glycemic control protocol. Thanks. * Please note that the plan above was derived based on current level of insulin resistance and hospital stress. These recommendations are appropriate for inpatient admission only. Plan of care upon discharge will need to be reassessed to avoid potential outpatient hypo/hyperglycemia.
[2016-09-02 15:31] LABS: EPSTEIN BARR VIR CAPSID IGG 2.18 INDEX
--- NOTE | 2016-09-02 16:22 | Infectious Disease Progress Nt ---
Progress Note Date of Service Sep 02, 2016. Subjective Pt evaluation today including: conversation w/ patient, physical exam, chart review, lab review, review of studies, conversation w/ retail sales consultant, review of inpatient medication list Patient states he is feeling better. Pain in feet is less. Breathing better. Less cough. No fever. All Other Systems: Reviewed and Negative Medications Current Inpatient Medications Medications (Trade) Dose Ordered Sig/Janessa Route Start Time Stop Time Status Last Admin Dose Admin Gabapentin (Neurontin Cap) 300 mg BID PO 08/28/16 21:00 09/27/16 20:59 09/02/16 08:14 300 MG Mometasone Furoate (Asmanex 220MCG Inh) 1 puff BID INH 08/28/16 21:00 09/27/16 20:59 09/02/16 08:16 1 PUFF Acetaminophen (Tylenol Tab) 650 mg Q4H PRN PO 08/28/16 10:30 09/27/16 10:29 Polyethylene (Miralax Powder Packet) 17 gm DAILY PRN PO 08/28/16 10:45 09/27/16 10:44 Ondansetron HCl 4 mg 4 mg Q6H PRN IV 08/28/16 10:30 09/27/16 10:29 Piperacillin Sod/ Tazobactam Sod/ Dextrose (Zosyn Iv/D5 100ml) 120 ml @ 28.75 mls/ hr Q8@0400,1200,2000 IV 08/28/16 20:00 09/07/16 13:59 Future Hold 08/31/16 05:40 28.75 MLS/HR Nystatin 1 appln 1 appln BID EXT 08/28/16 21:00 09/27/16 20:59 09/02/16 08:16 1 APPLN Pantoprazole Sodium/Syringe (Protonix Inj/ Syringe) 10 ml @ 5 mls/min DAILY@09,21 IV 08/28/16 13:00 09/27/16 10:29 09/02/16 08:13 5 MLS/MIN Morphine Sulfate (MoRPHine SULFATE INJ) 2 mg Q4H PRN IV 08/28/16 10:30 09/11/16 10:29 08/30/16 11:59 2 MG Morphine Sulfate (MoRPHine SULFATE INJ) 4 mg Q4H PRN IV 08/28/16 10:30 09/11/16 10:29 09/01/16 14:05 4 MG Oxycodone HCl (Roxicodone Immediate Rel Tab) 10 mg Q6 PRN PO 08/28/16 10:30 09/11/16 10:29 09/02/16 09:08 10 MG Albuterol/ Ipratropium (Duoneb) 3 ml QIDR INH 08/28/16 12:00 09/27/16 11:59 09/02/16 15:14 3 ML Albuterol/ Ipratropium (Duoneb) 3 ml Q2H PRN INH 08/28/16 10:30 09/27/16 10:29 Nystatin (Mycostatin Susp) 5 ml QID PO 08/28/16 13:00 09/07/16 12:59 09/02/16 13:38 5 ML Piperacillin Sod/ Tazobactam Sod (Consult) 1 ea UD PRN N/A 08/28/16 11:00 09/27/16 10:59 Future Hold Menthol/Zinc Oxide (Calmoseptine Oint) 1 appln BID EXT 08/31/16 09:00 09/30/16 08:59 09/02/16 08:16 1 APPLN Cyanocobalamin (Vitamin B-12 Inj) 1,000 mcg DAILY IM 09/01/16 09:00 10/01/16 08:59 09/02/16 08:15 1,000 MCG Folic Acid 1 mg 1 mg QAM PO 09/01/16 09:00 10/01/16 08:59 09/02/16 08:14 1 MG Ertapenem/Sodium Chloride (Invanz Iv/Nss Ad-Van 50ml) 50 ml @ 120 mls/hr Q24H IV 09/01/16 11:00 09/11/16 10:29 09/02/16 11:34 120 MLS/HR Prednisone (PredniSONE TAB) 40 mg BIDM PO 09/01/16 16:45 10/01/16 16:44 09/02/16 08:13 40 MG Benzonatate (Tessalon Perles Cap) 100 mg Q8H PRN PO 09/01/16 14:45 10/01/16 14:44 Miscellaneous Information (Consult Glycemic Management Pharmacy) 1 ea UD PRN N/A 09/01/16 17:04 10/01/16 17:03 Insulin Aspart (novoLOG ASPART) SLIDING SCALE ACHS SC 09/01/16 18:00 10/01/16 17:59 09/02/16 11:39 5 UNITS Glucose (Glucose 40% Gel) 15-30 GRAMS 15 GRAMS... UD PRN PO 09/01/16 18:15 10/01/16 18:14 Glucose (Glucose Chew Tab) 4-8 Tablets 4 Tabl... UD PRN PO 09/01/16 18:15 10/01/16 18:14 Dextrose (Dextrose 50% 50ML Syringe) 25-50ML OF 50% DW IV FOR... UD PRN IV 09/01/16 18:15 10/01/16 18:14 Glucagon (Glucagon Inj) 1 mg UD PRN SQ 09/01/16 18:15 10/01/16 18:14 Ioversol (Optiray 320) 100 ml UD PRN IV 09/01/16 18:30 09/05/16 18:29 Fluticasone Propionate 2 sprays 2 sprays DAILY NA 09/03/16 09:00 10/03/16 08:59 Azithromycin/ Dextrose (Zithromax IV/D5 250ml) 255 ml @ 125 mls/hr DAILY IV 09/03/16 09:00 09/08/16 11:03 Objective Vital Signs Date Time Temp Pulse Resp B/P Pulse Ox O2 Delivery O2 Flow Rate FiO2 09/02/16 15:15 110 16 92 Room Air 09/02/16 14:42 36.8 104 20 155/85 90 09/02/16 12:30 36.9 114 20 154/98 92 Room Air 09/02/16 12:20 37.0 123 16 91 09/02/16 12:00 91 Room Air 09/02/16 11:15 123 16 90 Room Air 09/02/16 10:44 37.0 104 20 159/93 91 Room Air 09/02/16 09:15 138/88 91 Room Air 09/02/16 08:31 36.5 114 22 174/99 93 Nasal Cannula 2.0 09/02/16 08:00 94 Nasal Cannula 2.0 09/02/16 07:04 102 16 97 Nasal Cannula 4.0 09/02/16 04:00 Room Air 09/02/16 04:00 36.6 85 22 142/86 97 Nasal Cannula 4.0 09/02/16 00:00 Room Air 09/01/16 23:51 36.7 98 20 138/88 98 Nasal Cannula 4.0 09/01/16 22:03 96 Nasal Cannula 4.0 09/01/16 22:02 85 Room Air 09/01/16 20:09 37.7 103 20 137/90 91 Room Air 09/01/16 17:29 111 154/96 09/01/16 16:55 36.8 116 20 169/69 91 Room Air Physical Exam General Appearance: WD/WN, no apparent distress Eyes: normal inspection, EOMI, sclerae normal ENT: normal ENT inspection, pharynx normal Neck: supple, trachea midline Respiratory/Chest: lungs clear, normal breath sounds, no respiratory distress Cardiovascular: regular rate, rhythm, no gallop, no murmur Abdomen: normal bowel sounds, non tender, soft, no organomegaly Extremities: + inflammation, + swelling Neurologic/Psychiatric: alert, normal mood/affect, oriented x 3 Skin: normal color, no rash, + pertinent finding (Improved erythema of feet) Lymphatic: no adenopathy Laboratory Results Last 24 Hours Test 09/01/16 21:02 09/02/16 05:50 09/02/16 06:40 09/02/16 11:29 Bedside Glucose 229 mg/dl 127 mg/dl 123 mg/dl White Blood Count 1.82 K/uL Red Blood Count 3.00 M/uL Hemoglobin 9.3 g/dL Hematocrit 28.4 % Mean Corpuscular Volume 94.7 fL Mean Corpuscular Hemoglobin 31.0 pg Mean Corpuscular Hemoglobin Concent 32.7 g/dl RDW Standard Deviation 48.4 fL RDW Coefficient of Variation 14.3 % Platelet Count 44 K/uL Mean Platelet Volume 10.6 fL Sodium Level 141 mmol/L Potassium Level 4.3 mmol/L Chloride Level 106 mmol/L Carbon Dioxide Level 30 mmol/L Anion Gap 5.0 mmol/L Blood Urea Nitrogen 26 mg/dl Creatinine 1.30 mg/dl Est Creatinine Clear Calc Drug Dose 84.4 ml/min Estimated GFR () 67.3 Estimated GFR (Non- 58.1 BUN/Creatinine Ratio 20.3 Random Glucose 137 mg/dl Calcium Level 8.5 mg/dl Assessment and Plan Clinical picture of early sepsis, most likely from bilateral foot cellulitis. Staph and Strep most likely pathogens. Unclear whether thrombocytopenia from meds or associated with sepsis. Will continue on ertapenem for now, likely transition to oral antibiotics in the near future. Have ordered parvovirus serology because of progressive pancytopenia.
--- NOTE | 2016-09-02 19:21 | Gastroenterology Progress Note ---
Progress Note Date of Service: Sep 02, 2016 Subjective Pt evaluation today including: conversation w/ patient, conversation w/ family , physical exam, chart review, lab review, review of studies, review of inpatient medication list CC f/u GI bleeding HPI Pt states breathing is better but noted infiltrative disease on CT yesterday. States no blood in stools for 3 days. Tolerating diet. Review of Systems Respiratory: No shortness of breath Cardiac: No chest pain Medications Current Inpatient Medications Medications (Trade) Dose Ordered Sig/Janessa Route Start Time Stop Time Status Last Admin Dose Admin Gabapentin (Neurontin Cap) 300 mg BID PO 08/28/16 21:00 09/27/16 20:59 09/02/16 08:14 300 MG Mometasone Furoate (Asmanex 220MCG Inh) 1 puff BID INH 08/28/16 21:00 09/27/16 20:59 09/02/16 08:16 1 PUFF Acetaminophen (Tylenol Tab) 650 mg Q4H PRN PO 08/28/16 10:30 09/27/16 10:29 Polyethylene (Miralax Powder Packet) 17 gm DAILY PRN PO 08/28/16 10:45 09/27/16 10:44 Ondansetron HCl 4 mg 4 mg Q6H PRN IV 08/28/16 10:30 09/27/16 10:29 Piperacillin Sod/ Tazobactam Sod/ Dextrose (Zosyn Iv/D5 100ml) 120 ml @ 28.75 mls/ hr Q8@0400,1200,2000 IV 08/28/16 20:00 09/07/16 13:59 Future Hold 08/31/16 05:40 28.75 MLS/HR Nystatin 1 appln 1 appln BID EXT 08/28/16 21:00 09/27/16 20:59 09/02/16 08:16 1 APPLN Pantoprazole Sodium/Syringe (Protonix Inj/ Syringe) 10 ml @ 5 mls/min DAILY@09,21 IV 08/28/16 13:00 09/27/16 10:29 09/02/16 08:13 5 MLS/MIN Morphine Sulfate (MoRPHine SULFATE INJ) 2 mg Q4H PRN IV 08/28/16 10:30 09/11/16 10:29 08/30/16 11:59 2 MG Morphine Sulfate (MoRPHine SULFATE INJ) 4 mg Q4H PRN IV 08/28/16 10:30 09/11/16 10:29 09/01/16 14:05 4 MG Oxycodone HCl (Roxicodone Immediate Rel Tab) 10 mg Q6 PRN PO 08/28/16 10:30 09/11/16 10:29 09/02/16 09:08 10 MG Albuterol/ Ipratropium (Duoneb) 3 ml QIDR INH 08/28/16 12:00 09/27/16 11:59 09/02/16 15:14 3 ML Albuterol/ Ipratropium (Duoneb) 3 ml Q2H PRN INH 08/28/16 10:30 09/27/16 10:29 Nystatin (Mycostatin Susp) 5 ml QID PO 08/28/16 13:00 09/07/16 12:59 09/02/16 17:14 5 ML Piperacillin Sod/ Tazobactam Sod (Consult) 1 ea UD PRN N/A 08/28/16 11:00 09/27/16 10:59 Future Hold Menthol/Zinc Oxide (Calmoseptine Oint) 1 appln BID EXT 08/31/16 09:00 09/30/16 08:59 09/02/16 08:16 1 APPLN Cyanocobalamin (Vitamin B-12 Inj) 1,000 mcg DAILY IM 09/01/16 09:00 10/01/16 08:59 09/02/16 08:15 1,000 MCG Folic Acid 1 mg 1 mg QAM PO 09/01/16 09:00 10/01/16 08:59 09/02/16 08:14 1 MG Ertapenem/Sodium Chloride (Invanz Iv/Nss Ad-Van 50ml) 50 ml @ 120 mls/hr Q24H IV 09/01/16 11:00 09/11/16 10:29 09/02/16 11:34 120 MLS/HR Prednisone (PredniSONE TAB) 40 mg BIDM PO 09/01/16 16:45 10/01/16 16:44 09/02/16 17:13 40 MG Benzonatate (Tessalon Perles Cap) 100 mg Q8H PRN PO 09/01/16 14:45 10/01/16 14:44 Miscellaneous Information (Consult Glycemic Management Pharmacy) 1 ea UD PRN N/A 09/01/16 17:04 10/01/16 17:03 Insulin Aspart (novoLOG ASPART) SLIDING SCALE ACHS SC 09/01/16 18:00 10/01/16 17:59 09/02/16 17:20 5 UNITS Glucose (Glucose 40% Gel) 15-30 GRAMS 15 GRAMS... UD PRN PO 09/01/16 18:15 10/01/16 18:14 Glucose (Glucose Chew Tab) 4-8 Tablets 4 Tabl... UD PRN PO 09/01/16 18:15 10/01/16 18:14 Dextrose (Dextrose 50% 50ML Syringe) 25-50ML OF 50% DW IV FOR... UD PRN IV 09/01/16 18:15 10/01/16 18:14 Glucagon (Glucagon Inj) 1 mg UD PRN SQ 09/01/16 18:15 10/01/16 18:14 Ioversol (Optiray 320) 100 ml UD PRN IV 09/01/16 18:30 09/05/16 18:29 Fluticasone Propionate 2 sprays 2 sprays DAILY NA 09/03/16 09:00 10/03/16 08:59 Azithromycin/ Dextrose (Zithromax IV/D5 250ml) 255 ml @ 125 mls/hr DAILY IV 09/03/16 09:00 09/08/16 11:03 Objective Vital Signs Date Time Temp Pulse Resp B/P Pulse Ox O2 Delivery O2 Flow Rate FiO2 09/02/16 15:15 110 16 92 Room Air 09/02/16 14:42 36.8 104 20 155/85 90 09/02/16 12:30 36.9 114 20 154/98 92 Room Air 09/02/16 12:20 37.0 123 16 91 09/02/16 12:00 91 Room Air 09/02/16 11:15 123 16 90 Room Air 09/02/16 10:44 37.0 104 20 159/93 91 Room Air 09/02/16 09:15 138/88 91 Room Air 09/02/16 08:31 36.5 114 22 174/99 93 Nasal Cannula 2.0 09/02/16 08:00 94 Nasal Cannula 2.0 09/02/16 07:04 102 16 97 Nasal Cannula 4.0 09/02/16 04:00 Room Air 09/02/16 04:00 36.6 85 22 142/86 97 Nasal Cannula 4.0 09/02/16 00:00 Room Air 09/01/16 23:51 36.7 98 20 138/88 98 Nasal Cannula 4.0 09/01/16 22:03 96 Nasal Cannula 4.0 09/01/16 22:02 85 Room Air 09/01/16 20:09 37.7 103 20 137/90 91 Room Air Physical Exam General Appearance: WD/WN, no apparent distress Respiratory/Chest: no respiratory distress Cardiovascular: regular rate, rhythm Abdomen: normal bowel sounds, non tender, soft Neurologic/Psych: alert, normal mood/affect, oriented x 3 Laboratory Results Last 24 Hours Test 09/01/16 21:02 09/02/16 05:50 09/02/16 06:40 09/02/16 11:29 Bedside Glucose 229 mg/dl 127 mg/dl 123 mg/dl White Blood Count 1.82 K/uL Red Blood Count 3.00 M/uL Hemoglobin 9.3 g/dL Hematocrit 28.4 % Mean Corpuscular Volume 94.7 fL Mean Corpuscular Hemoglobin 31.0 pg Mean Corpuscular Hemoglobin Concent 32.7 g/dl RDW Standard Deviation 48.4 fL RDW Coefficient of Variation 14.3 % Platelet Count 44 K/uL Mean Platelet Volume 10.6 fL Sodium Level 141 mmol/L Potassium Level 4.3 mmol/L Chloride Level 106 mmol/L Carbon Dioxide Level 30 mmol/L Anion Gap 5.0 mmol/L Blood Urea Nitrogen 26 mg/dl Creatinine 1.30 mg/dl Est Creatinine Clear Calc Drug Dose 84.4 ml/min Estimated GFR () 67.3 Estimated GFR (Non- 58.1 BUN/Creatinine Ratio 20.3 Random Glucose 137 mg/dl Calcium Level 8.5 mg/dl Test 09/02/16 16:27 Bedside Glucose 202 mg/dl Assessment and Plan Rectal bleeding--Most likely colonic process. only on toilet paper now. Awaiting optimization of medical status prior to colonoscopy. Recommend optimization of pulmonary process and do outpt colonoscopy once cleared by pulmonary. Will sign off and told patient and to call office once cleared. Normocytic Anemia--Fe sat normal, ferriitin high 831 could be acute phase reactant neeeds repeated when not ill, B12 and folate low B12 deficiency--injection daily for 7 days then montlhy folate deficiency---po supplements diarrhea---resolved internal hemorrhoids--may be source of bleeding. Thrush--nystating
[2016-09-03] VITALS (8 sets, daily range): BP systolic 127–155; BP diastolic 77–94; PULSE 86–109; TEMP 36.5–37.3; O2SAT 89–98
[2016-09-03] MEDS: NYSTATIN SUSP 500,000 U/5 ML UDC PO SCH ×3 (05:17→17:08)
[2016-09-03] MEDS: ALBUT/IPRATROP 3MG/0.5MG NEB 3 ML VIAL INH SCH ×3 (07:06→16:08)
[2016-09-03 08:08] LABS: HEMATOCRIT 30.2 % (42-52); MEAN CELL VOLUME 93.2 fL (80-100); MEAN CORPUSCULAR HEMOGLOBIN 31.2 pg (25-34); MEAN CORPUSCULAR HGB CONC 33.4 g/dl (32-36); MEAN PLATELET VOLUME 11.1 fL (7.4-10.4); PLATELET COUNT 67 K/uL (130-400); RED BLOOD COUNT 3.24 M/uL (4.7-6.1); WHITE BLOOD COUNT 1.13 K/uL (4.8-10.8)
[2016-09-03] MEDS: GABAPENTIN 300 MG CAP PO SCH (08:44)
[2016-09-03] MEDS: MOMETASONE FUROATE 14 PUFF/1 INHALER INH SCH (08:46)
[2016-09-03] MEDS: CYANOCOBALAMIN 1000 MCG/ML VIAL IM SCH (08:46)
[2016-09-03] MEDS: MENTHOL-ZINC OXIDE 360 APPLN/120 GM TUBE EXT SCH (08:48)
[2016-09-03] MEDS: NYSTATIN POWDER 15GM BTL EXT SCH (08:49)
[2016-09-03] MEDS: PANTOprazole INJ 40 MG in SYRINGE 0 ML IV SCH (08:49)
[2016-09-03] MEDS ORDERED: FLUTICASONE PROPIONATE NA SPR 16 GM BTL SCH (09:00)
[2016-09-03] MEDS ORDERED: AZITHROMYCIN IV 500 MG in DEXTROSE 5% 250ML 250 ML IV SCH (09:00)
[2016-09-03] MEDS: INSULIN ASPART 100 UNITS/ML 3 ML PEN SC SCH ×3 (09:21→17:13)
[2016-09-03] MEDS ORDERED: INSULIN GLARGINE SOLOSTAR 100 UNITS/ML 3 ML PEN SC SCH (10:00)
[2016-09-03] MEDS: ERTAPENEM IV 1 GM in SODIUM CHLOR 0.9% AD-VAN 50ML 50 ML IV SCH (11:11)
--- NOTE | 2016-09-03 11:49 | WOUND PROGRESS NOTE ---
DATE: 09/03/2016 SUBJECTIVE: The patient is seen today for followup evaluation of stage II pressure ulcers to both feet. The patient states he is having no more pain, was able to ambulate without difficulty today. The patient denies any fever, chills or night sweats. The patient denies any other systemic complaints. OBJECTIVE: The patient's vital signs were reviewed and found to be unremarkable. The patient is afebrile. The ulceration on the right foot today shows a 56% surface area reduction now measuring 8.5 x 5.5 x 0.1 cm and the left foot ulceration today shows a 69% surface area reduction now measuring 75 x 4 x 0.1 cm. There is no central slough. No active drainage, no periwound erythema or edema, no tenderness to palpation in the periwound region. ASSESSMENT: Stage II pressure ulcerations, bilateral feet with improvement. PLAN: At this time, no debridement is required. The sites will continue to be dressed with Xeroform and gauze changed daily. The patient is recommended to remain in his [employer] shoes and to be reevaluated in 1 week in the outpatient environment.
--- NOTE | 2016-09-03 13:21 | Pharmacy Progress Note ---
Glycemic Control: Progress Nt Date of Service Sep 03, 2016. Scope Glycemic Pharmacist consulted by Dr Adamson on 09/01 for glycemic control and to write orders per [facility] inpatient glycemic control protocol. Objective Accuchecks BSG (last 24hrs): Test 09/02/16 16:27 09/02/16 20:20 09/03/16 09:15 09/03/16 11:49 Bedside Glucose 202 mg/dl (70-99) 155 mg/dl (70-99) 200 mg/dl (70-99) 175 mg/dl (70-99) Laboratory Data (last 24hrs) Test 09/03/16 07:52 White Blood Count 1.13 K/uL HbA1c: Test 08/29/16 06:39 Hemoglobin A1c 7.5 % (4.5-5.6) H Recent Pertinent Medications Outpatient Anti-diabetic Regimen: * n/a - although on chronic prednisone 20 mg daily for RA The patient is currently receiving: * Basal insulin: None * Correctional Insulin: Novolog Correction per scale ACHS Goal Range: Low 120 mg/dL - High 160 mg/dL Correction Factor: 40 mg/dL/unit * Prandial insulin: Per carb ratio of 1 unit per 15 grams CHO consumed * Oral Agents: None at this time Risk Factors for Insulin Resistance: * Steroids: prednisone 40 mg BID * Infection: early sepsis 2/2 foot cellulitis * Diet: type 2 diabetes/ AHA - CHO intake at meals anywhere from 10-75 gm Assessment & Plan ASSESSMENT: 09/03/16 * Mr. Stone received 15 units of insulin yesterday w/ BSGs ranging from 123- 202 mg/dL in the past 24 hours * The glycemic pharmacist on this AM added a low dose of daily Lantus b/c of increasing BSGs and I am in agreement w/ this while on BID steroids * Will plan to reassess tomorrow to see how BSGs respond to the addition of basal insulin * ADA & AACE recommend a goal blood sugar range 140-180 mg/dl for the majority of critically ill & non-critically ill patients. However, more stringent targets may be selected in individual cases. PLAN FOR INPATIENT GLYCEMIC CONTROL: * ADD Lantus 10 units daily * Continue Novolog ACHS * Goal 120-160 * CF 40 * CR 15 RECOMMENDATIONS FOR DISCHARGE: * The patient's A1c indicates he has diabetes, most likely steroid-induced * Provided renal function does not worsen, may consider the initiation of metformin 500 mg BID upon discharge Thank you.
--- NOTE | 2016-09-03 14:25 | Discharge Summary ---
Discharge Summary Date of Service Sep 03, 2016. Discharge Summary Admission Date: Aug 28, 2016 at 10:40 Discharge Date: Sep 03, 2016 Discharge Disposition: Home Principal Diagnosis: Acute bronchitis with SIRS Problems/Secondary Diagnoses: 1. GI Bleed/Hx of hemorrhoids 2. Thrush 3. Acute on chronic kidney injury 4. Pancytopenia/Thrombocytopenia 5. Leg ulcers 6. HTN 7. Hyperglycemia/T2DM 8. GERD Procedures: CHEST ONE VIEW PORTABLE CLINICAL HISTORY: CHEST PAIN dyspnea COMPARISON STUDY: 04/25/2016 FINDINGS: Mild stable cardia megaly. Lungs are clear. Diaphragms smooth. Costophrenic angles are sharp. IMPRESSION: Mild stable cardiomegaly. Electronically signed by: Elmer Whitfield M.D. 08/28/2016 9:11 AM Dictated Date/Time: 08/28/2016 9:10 AM The status of this report is Signed. Draft = Not yet reviewed or approved by Radiologist. Signed = Reviewed and approved by Radiologist. SINUS CT CT DOSE: 559.89 mGy.cm HISTORY: Dyspnea chronic sinusitis with associated cough TECHNIQUE: Multiaxial CT images of the paranasal sinuses were performed and reformatted in the coronal plane without the use of contrast. COMPARISON: None. FINDINGS: Minimal to mild mucosal thickening of all major sinuses. Minimal hyperplastic changes the nasal turbinates. Soft tissue narrowing left ostiomeatal unit. Narrowing of the right ostiomeatal unit. The mastoid air cells are clear. The orbits are unremarkable. IMPRESSION: Mild mucosal thickening of all major sinuses. Minimal hyperplastic changes the nasal turbinates. Electronically signed by: Elmer Whitfield M.D. 09/01/2016 4:21 PM Dictated Date/Time: 09/01/2016 4:20 PM The status of this report is Signed. Draft = Not yet reviewed or approved by Radiologist. Signed = Reviewed and approved by Radiologist. CHEST CT WITH CONTRAST CT DOSE: 1494.11 mGy.cm HISTORY: Dyspnea SOB, cough, tacky cardia TECHNIQUE: Multiaxial CT images of the chest were performed following the intravenous administration of contrast. COMPARISON: 06/06/2016 FINDINGS: Substernal thyroid unchanged. No significant mediastinal or hilar adenopathy. Potential developing pleural-based groundglass nodule measuring 1.4 cm posterior aspect right midlung. Possible developing nodule left upper lobe transaxial image 29 measuring 7 mm. Unchanging pleural thickening posterior aspect right lower lobe. 3 mm nodular density right middle lobe unchanged. Developing bibasilar interstitial infiltrative changes with underlying nodular component. Limited evaluation the upper abdomen is unremarkable. IMPRESSION: 1. Developing bibasilar parenchymal infiltrative change with underlying nodular components. 2. Scattered additional and are slightly progressive nodular changes posterior aspect right midlung as well as left midlung. 3. Although possibly inflammatory, this should be followed closely and/or consideration of bronchoscopy to exclude any possibility of developing neoplastic process. 4. Unchanging right substernal thyroid. Electronically signed by: Elmer Whitfield M.D. 09/01/2016 7:28 PM Dictated Date/Time: 09/01/2016 7:24 PM The status of this report is Signed. Draft = Not yet reviewed or approved by Radiologist. Signed = Reviewed and approved by Radiologist. Consultations: ID GI Wound care Pulmonary Hematology/Oncology Medication Reconciliation New Medications: Azithromycin (Zithromax) 250 Mg Tab 500 MG PO DAILY for 3 Days, #6 TAB Cephalexin (Keflex) 500 Mg Cap 1 CAP PO TID for 10 Days, #30 CAP Cyanocobalamin (B-12) 1,000 Mcg Cap 1000 MCG PO DAILY for 30 Days, #3 TABS Metformin Hcl (Glucophage) 500 Mg Tab 500 MG PO BID for 30 Days, #60 TAB Folic Acid (Folic Acid) 1 Mg Tab 1 MG PO QAM for 30 Days, #30 TAB Nystatin (Nystatin) 5 Ml Susp 5 ML PO QID for 10 Days, #200 ML Continued Medications: Etanercept (Enbrel) 50 Mg/Ml Inj 1 DOSE INJ Mo Furosemide (Lasix) 20 Mg Tab 10 MG PO UD, TAB Gabapentin (Neurontin) 300 Mg Cap 300 MG PO BID, CAP Methotrexate (Trexall) 10 Mg Tab 10 MG PO WK, TAB Mometasone Furoate (Inhalation (Asmanex Twisthaler 120 Me) 220 Mcg/Inh Aer 1 INHA INH BID Omeprazole (Prilosec) 20 Mg Capcr 20 MG PO DAILY, CAP Prednisone (Prednisone) 20 Mg Tab 1 TAB PO DAILY [Hctz/Losartan] () 100/12.5 TAB 1 TAB PO DAILY Referrals At Discharge Follow up Referrals: Family Practice Referral - Within 1 Week with Sherwin Singleton D.O. Project Management Engineer Referral - Within a Month with Luis Miguel Young M.D. Oncology/Hematology Referral - Within 1-2 Weeks with Joseph Cobb MD Physician Referral - Within 1 Week with Elmer Espino DO Assistant Spa Manager Referral - Within 1-2 Weeks with Joaquin Tejada D.O. Pulmonary Discharge Exam Review of Systems: Constitutional: No chills, No fatigue, No fever, No weakness Respiratory: No cough, No hemoptysis, No shortness of breath Cardiovascular: No chest pain, No edema, No palpitations Abdomen: No constipation, No diarrhea, No nausea, No pain, No vomiting Musculoskeletal: No calf pain, No joint pain, No muscle pain, No swelling Genitourinary - Male: No dysuria, No hematuria Neurologic: No numbness/tingling, No weakness Psychiatric: No anxiety, No depression symptoms Hematologic / Lymphatic: No abnormal bleeding/bruising Integumentary: No itch, No new/changing skin lesions, No rash Physical Exam: General Appearance: no apparent distress, + obese Eyes: normal inspection, PERRL ENT: hearing grossly normal Neck: supple Respiratory/Chest: lungs clear, no respiratory distress, no accessory muscle use Cardiovascular: regular rate, rhythm Abdomen / GI: normal bowel sounds, non tender, soft Extremities: no calf tenderness, no pedal edema Neurologic/Psychiatric: alert, normal mood/affect, oriented x 3 Skin: normal color, warm/dry, no rash Hospital Course HPI on admission: Mr. Solorzano is a 61-year-old male who suffers from rheumatoid arthritis and is on chronic prednisone therapy. 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 Tejada. He states over the last 4 days he developed progressive shortness of breath; however, this has been accompanied by cough now changing with yellow sputum from his typical white and also some surrounding erythema to large blisters which formed on his feet after walking in ill-fitting shoes over the weekend. The patient states that he was doing fairly well prior to this weekend. He actually went to visit some family in [place] but he was able to ambulate on an outdoor event without much shortness of breath. However, upon returning home, he noticed that he developed blisters from walking around on his feet with progressive erythema and he developed a yellow productive cough with increasing shortness of breath. To this end, the patient took some p.r.n. , Lasix, which he had at home and doubled his usual prednisone therapy from 20 to 40. Despite these efforts and local wound care his legs progressively worsened and become erythematous, his breathing progressively worsened and he presented to the Emergency Department where he was found to be hypotensive with lactic acid of 2. He was also tachycardic. He was leukopenic , which likely makes him placed in the SIRS criteria. He was volume resuscitated in the ER. Blood cultures were obtained and he Acute bronchitis with SIRS: - Admit to tele for cardiac monitoring -- Transfer to med/surg on 09/02 - Cardiac enzymes trended- peak trop on 1.040 - IV antibiotics- Zosyn and Azithromycin - IV Steroids--> transitioned to PO Prednisone- discharge with Prednisone michelle - O2 protocol, wean as tolerated--> does NOT wear O2 supplement at home - DuoNebs - BCx negative - Lactic acid WNL - MRSA swab negative - Consult pulmonary, appreciate recommendations- recommended outpt f/u in 1-2 weeks - Will discharge with Azithromycin to complete 5 day course GI Bleed/Hx of hemorrhoids: - Type and screen - Followed H&H - GI consulted, appreciate recommendations -- F/U outpt for colonoscopy Thrush: - Continue Nystatin- follow-up w/ PCP in 5-7 days Acute on chronic kidney injury- resolved: - Treated with IVF - Avoid nephrotoxic agents - Follow PRP Pancytopenia/Thrombocytopenia, secondary to multifactorial, with components of sepsis/inflammation, medications (Zosyn), and his GI bleeding- stable: - Heme/oncology consulted, appreciate recommendations- recommend outpt f/u - Iron panel, b12/folate labs reviewed - Folate and B12 supplementation Leg ulcers: - Wound care consulted, appreciate recommendations- recommend outpt f/u in 1 week - ID consulted, appreciate recommendations -- IV Ertapenem. OK to transition to PO Keflex at discharge HTN: - Held Losartan/HCTZ secondary to JUAN- resume at discharge Hyperglycemia, secondary to steroids: - ha1c 7/5 %- indicating diabetic - Pharmacy consulted for diabetic management- recommending Metformin 500 mg BID at discharge- follow-up w/ PCP for additional management GERD: IV Protonix- resume Prilosec at discharge GI Prophylaxis: MiraLAX PRN, IV Zofran PRN, IV Protonix DVT prophylaxis: no chemical means secondary to thrombocytopenia, TEDs and SCDs Code Status: LEVEL I, FULL Dispo: Discharge to home Total Time Spent: Greater than 30 minutes This includes examination of the patient, discharge planning, medication reconciliation, and communication with other providers. Discharge Instructions Please refer to the electronic Patient Visit Report (Discharge Instructions) for additional information. Follow-Up Please follow-up with your PCP within 5-7 days Please follow-up with Wound care in 1 week Follow-up with GI within 1 month Follow-up with Pulmonary in 1-2 weeks Follow-up with hem/oncology in 1-2 weeks Please follow-up/keep all of your subspecialty appointments Additional Copies To Sherwin Singleton D.O.
[2016-09-03] MEDS ORDERED: AZIT250T PO (14:32)
[2016-09-03] MEDS ORDERED: METF500T PO (14:32)
[2016-09-03] MEDS ORDERED: CYAN1CAP3 PO (14:32)
[2016-09-03] MEDS ORDERED: NYSS5 PO (14:32)
[2016-09-03] MEDS ORDERED: FLV1 PO (14:32)
[2016-09-03] MEDS ORDERED: CEPH-571 PO (14:32)
--- NOTE | 2016-09-03 14:43 | Discharge Instructions ---
Discharge Instructions Date of Service Sep 03, 2016. Admission Reason for Admission: SIRS Discharge Discharge Diagnosis / Problem: Acute bronchitis; SIRS; cellulitis Discharge Goals Goal(s): Decrease discomfort, Improve function, Improve disease control, Learn about illness, Diagnostic testing, Therapeutic intervention, Prevent Disease Progression Activity Recommendations Activity Limitations: resume your previous activity . Instructions / Follow-Up Instructions / Follow-Up New/changed medication: 1. Keflex 500 mg by mouth three times per day x10 days This medication is an antibiotic used to treatment your wound infections 2. Azithromycin 500 mg by mouth once daily This medication is an antibiotic used to treatment pulmonary infection 3. B12 and Folate supplements During your stay, you were found to be deficient 4. Metformin 500 mg by mouth twice per day This medication is used for blood sugar management 5. Nystatin 5 ml four times per day This medication is used to treat thrush 6. Prednisone michelle- 40 mg by mouth once daily x3 days, then 30 mg by mouth once daily x3 days, then 20 mg by mouth once daily x3 days, then 10 mg by mouth once daily x2 days, then 5 mg by mouth once daily x2 days. You may resume all other regular home medications as prescribed to you Please follow-up with your PCP within 5-7 days Please follow-up with Pulmonary in 1-2 weeks Please follow-up with Wound care in 1 week Please follow-up with GI within 1 month for colonoscopy Please follow-up with Hematology/Oncology in 1-2 weeks Please follow-up/keep all of your subspecialty appointments REFERRALS WERE PLACED FOR ALL FOLLOW-UP APPOINTMENTS- IF YOU DO NOT HEAR OF AN APPOINTMENT IN 1-2 DAYS, CALL THEIR OFFICES. Current Hospital Diet Patient's current hospital diet: Diabetes Type 2 Diet, AHA Diet (Heart Healthy) Discharge Diet Recommended Diet: AHA Diet (Heart Healthy), Diabetes Type 2 Diet Procedures Procedures Performed: 1. Chest x-ray 2. Sinus CT Pending Studies Studies pending at discharge: yes List of pending studies: 1. TB serology studies pending Laboratory Results Last 24 Hours Test 09/02/16 16:27 09/02/16 20:20 09/03/16 07:52 09/03/16 09:15 Bedside Glucose 202 mg/dl 155 mg/dl 200 mg/dl White Blood Count 1.13 K/uL Red Blood Count 3.24 M/uL Hemoglobin 10.1 g/dL Hematocrit 30.2 % Mean Corpuscular Volume 93.2 fL Mean Corpuscular Hemoglobin 31.2 pg Mean Corpuscular Hemoglobin Concent 33.4 g/dl RDW Standard Deviation 47.7 fL RDW Coefficient of Variation 14.4 % Platelet Count 67 K/uL Mean Platelet Volume 11.1 fL Platelet Estimate Magnesium Level 2.2 mg/dl Test 09/03/16 11:49 Bedside Glucose 175 mg/dl Hemoglobin A1c Test 08/29/16 06:39 Range/Units Estimated Average Glucose 169 mg/dl Hemoglobin A1c 7.5 H 4.5-5.6 % Lipid Panel Test 06/17/16 12:10 Range/Units Triglycerides Level 196 H 0-150 mg/dl Cholesterol Level 247 H 0-200 mg/dl HDL Cholesterol 60 mg/dl Cholesterol/HDL Ratio 4.1 LDL Cholesterol, Calculated 148 mg/dl Medical Emergencies . Who to Call and When: Medical Emergencies: If at any time you feel your situation is an emergency, please call 911 immediately. . Non-Emergent Contact Non-Emergency issues call your: Primary Care Provider . . "Provider Documentation" section prepared by Jolie Mixon. VTE Core Measure Inpt VTE Proph given/why not?: T.E.D. Stockings, SCD's, Contraindicated
[2016-09-03] MEDS ORDERED: PRED10TA PO (14:53)
--- NOTE | 2016-09-03 15:07 | Infectious Disease Progress Nt ---
Progress Note Date of Service Sep 03, 2016. Subjective Pt evaluation today including: conversation w/ patient, physical exam, chart review, lab review, review of studies, conversation w/ service delivery consultant, review of inpatient medication list Offers no new complaints today. Pain in feet has gone. No fever. Wound care follow-up noted. Anxious to go home. All Other Systems: Reviewed and Negative Medications Current Inpatient Medications Medications (Trade) Dose Ordered Sig/Janessa Route Start Time Stop Time Status Last Admin Dose Admin Gabapentin (Neurontin Cap) 300 mg BID PO 08/28/16 21:00 09/27/16 20:59 09/03/16 08:44 300 MG Mometasone Furoate (Asmanex 220MCG Inh) 1 puff BID INH 08/28/16 21:00 09/27/16 20:59 09/02/16 08:16 1 PUFF Acetaminophen (Tylenol Tab) 650 mg Q4H PRN PO 08/28/16 10:30 09/27/16 10:29 Polyethylene (Miralax Powder Packet) 17 gm DAILY PRN PO 08/28/16 10:45 09/27/16 10:44 Ondansetron HCl (Zofran Inj) 4 mg Q6H PRN IV 08/28/16 10:30 09/27/16 10:29 Nystatin 1 appln 1 appln BID EXT 08/28/16 21:00 09/27/16 20:59 09/02/16 08:16 1 APPLN Pantoprazole Sodium/Syringe (Protonix Inj/ Syringe) 10 ml @ 5 mls/min DAILY@,21 IV 08/28/16 13:00 09/27/16 10:29 09/03/16 08:49 5 MLS/MIN Morphine Sulfate (MoRPHine SULFATE INJ) 2 mg Q4H PRN IV 08/28/16 10:30 09/11/16 10:29 08/30/16 11:59 2 MG Morphine Sulfate (MoRPHine SULFATE INJ) 4 mg Q4H PRN IV 08/28/16 10:30 09/11/16 10:29 09/01/16 14:05 4 MG Oxycodone HCl (Roxicodone Immediate Rel Tab) 10 mg Q6 PRN PO 08/28/16 10:30 09/11/16 10:29 09/02/16 23:47 10 MG Albuterol/ Ipratropium (Duoneb) 3 ml QIDR INH 08/28/16 12:00 09/27/16 11:59 09/03/16 11:18 3 ML Albuterol/ Ipratropium (Duoneb) 3 ml Q2H PRN INH 08/28/16 10:30 09/27/16 10:29 Nystatin (Mycostatin Susp) 5 ml QID PO 08/28/16 13:00 09/07/16 12:59 09/03/16 12:55 5 ML Menthol/Zinc Oxide (Calmoseptine Oint) 1 appln BID EXT 08/31/16 09:00 09/30/16 08:59 09/03/16 08:48 1 APPLN Cyanocobalamin (Vitamin B-12 Inj) 1,000 mcg DAILY IM 09/01/16 09:00 10/01/16 08:59 09/03/16 08:46 1,000 MCG Folic Acid 1 mg 1 mg QAM PO 09/01/16 09:00 10/01/16 08:59 09/03/16 08:44 1 MG Ertapenem/Sodium Chloride (Invanz Iv/Nss Ad-Van 50ml) 50 ml @ 120 mls/hr Q24H IV 09/01/16 11:00 09/11/16 10:29 09/03/16 11:11 120 MLS/HR Prednisone (PredniSONE TAB) 40 mg BIDM PO 09/01/16 16:45 10/01/16 16:44 09/03/16 08:43 40 MG Benzonatate (Tessalon Perles Cap) 100 mg Q8H PRN PO 09/01/16 14:45 10/01/16 14:44 09/03/16 13:17 100 MG Miscellaneous Information (Consult Glycemic Management Pharmacy) 1 ea UD PRN N/A 09/01/16 17:04 10/01/16 17:03 Insulin Aspart (novoLOG ASPART) SLIDING SCALE ACHS SC 09/01/16 18:00 10/01/16 17:59 09/03/16 12:58 2 UNITS Glucose (Glucose 40% Gel) 15-30 GRAMS 15 GRAMS... UD PRN PO 09/01/16 18:15 10/01/16 18:14 Glucose (Glucose Chew Tab) 4-8 Tablets 4 Tabl... UD PRN PO 09/01/16 18:15 10/01/16 18:14 Dextrose (Dextrose 50% 50ML Syringe) 25-50ML OF 50% DW IV FOR... UD PRN IV 09/01/16 18:15 10/01/16 18:14 Glucagon (Glucagon Inj) 1 mg UD PRN SQ 09/01/16 18:15 10/01/16 18:14 Ioversol (Optiray 320) 100 ml UD PRN IV 09/01/16 18:30 09/05/16 18:29 Fluticasone Propionate 2 sprays 2 sprays DAILY NA 09/03/16 09:00 10/03/16 08:59 09/03/16 08:45 2 SPRAYS Azithromycin/ Dextrose (Zithromax IV/D5 250ml) 255 ml @ 125 mls/hr DAILY IV 09/03/16 09:00 09/08/16 11:03 09/03/16 08:45 125 MLS/HR Insulin Glargine (Lantus Solostar Pen) 10 unit DAILY SC 09/03/16 10:00 10/03/16 09:59 09/03/16 11:10 10 UNIT Objective Vital Signs Date Time Temp Pulse Resp B/P Pulse Ox O2 Delivery O2 Flow Rate FiO2 09/03/16 11:18 100 18 94 Room Air 09/03/16 08:40 109 155/83 09/03/16 08:00 Room Air 09/03/16 07:47 36.8 99 20 98 Room Air 09/03/16 07:06 100 18 98 Nasal Cannula 5.0 09/03/16 00:03 36.5 86 20 127/77 91 Room Air 09/02/16 23:47 Nasal Cannula 2.0 09/02/16 19:47 94 16 97 Nasal Cannula 2.0 09/02/16 16:22 92 Nasal Cannula 2.0 09/02/16 15:15 110 16 92 Room Air Physical Exam General Appearance: WD/WN, no apparent distress, + obese Eyes: normal inspection, sclerae normal ENT: normal ENT inspection, pharynx normal Neck: supple, trachea midline Respiratory/Chest: lungs clear, normal breath sounds, no respiratory distress Cardiovascular: regular rate, rhythm, no gallop, no murmur Abdomen: normal bowel sounds, non tender, soft, no organomegaly Extremities: non-tender, no calf tenderness, + swelling Neurologic/Psychiatric: alert, oriented x 3 Skin: normal color, no rash, + pertinent finding ( Ulcerations of feet improved, much less erythema) Lymphatic: no adenopathy Laboratory Results Last 24 Hours Test 09/02/16 16:27 09/02/16 20:20 09/03/16 07:52 09/03/16 09:15 Bedside Glucose 202 mg/dl 155 mg/dl 200 mg/dl White Blood Count 1.13 K/uL Red Blood Count 3.24 M/uL Hemoglobin 10.1 g/dL Hematocrit 30.2 % Mean Corpuscular Volume 93.2 fL Mean Corpuscular Hemoglobin 31.2 pg Mean Corpuscular Hemoglobin Concent 33.4 g/dl RDW Standard Deviation 47.7 fL RDW Coefficient of Variation 14.4 % Platelet Count 67 K/uL Mean Platelet Volume 11.1 fL Platelet Estimate Magnesium Level 2.2 mg/dl Test 09/03/16 11:49 Bedside Glucose 175 mg/dl Assessment and Plan Clinical picture of early sepsis, most likely from bilateral foot cellulitis. Staph and Strep most likely pathogens. Unclear whether thrombocytopenia from meds or associated with sepsis. patient has improved on IV ertapenem, and platelet count now starting to increase. Feel that patient can be transitioned to oral antibiotics and recommend use of cephalexin 500 milligrams q.i.d. for another 7-10 days. Would obtain follow-up CBC as outpatient to ensure resolution of cytopenias.
[2016-09-05 04:00] LABS: CYTOMEGALOVIRUS IGG AB <0.91; QUANTIF TB AG-NIL <0.00 IU/ML; QUANTIFERON NIL 0.06 IU/ML
== END 2016-09-03 17:25 | disposition home or self-care (01) | DRG 872 ==
LOC: ENRESERVDT → ENRESERVTM → C.EDB 08:22 → C.2T 10:40 → C.MS2W 09-02 13:01
PROVIDERS: ADMIT Internal Medicine; ATTEND Hospitalist
DX: A41.9 Sepsis, unspecified organism (principal); J44.1 Chronic obstructive pulmonary disease with (acute) exacerbation; N17.9 Acute kidney failure, unspecified; L03.116 Cellulitis of left lower limb; L03.115 Cellulitis of right lower limb; D61.818 Other pancytopenia; N18.3 Chronic kidney disease, stage 3 (moderate); K92.1 Melena; J44.0 Chronic obstructive pulmonary disease with (acute) lower respiratory infection; M06.9 Rheumatoid arthritis, unspecified; B37.9 Candidiasis, unspecified; E11.65 Type 2 diabetes mellitus with hyperglycemia; J20.9 Acute bronchitis, unspecified; D64.9 Anemia, unspecified; L89.892 Pressure ulcer of other site, stage 2; K64.8 Other hemorrhoids; Z79.52 Long term (current) use of systemic steroids; Z87.891 Personal history of nicotine dependence; R65.20 Severe sepsis without septic shock; R91.1 Solitary pulmonary nodule; E53.8 Deficiency of other specified B group vitamins; K05.10 Chronic gingivitis, plaque induced